=== PATIENT | female | born 1980 | race Caucasian/White ===

== ENCOUNTER 2018-08-09 07:16 | Emergency (ER) | payer OTHER ==
--- OUTSIDE RECORDS SUMMARY | 2018-08-09 07:18 | XMS REPORT ---
:1980 Author Organization eClinicalWorks Care Team Providers Name Role Phone Ira Scruggs Provider Role Unavailable Allergies, Adverse Reactions, Alerts Substance Reaction Event Type Garlic Info Not Available Drug Allergy Mustard Info Not Available Non Drug Allergy Onions Info Not Available Non Drug Allergy Problems Problem Type Condition Code Onset Dates Condition Status Problem Sinus problem J34.9 Active Problem Other chronic pain G89.29 Active Problem Kidney stones N20.0 Active Problem GERD (gastroesophageal reflux K21.9 Active disease) Problem Diverticulitis K57.92 Active Problem Anxiety F41.9 Active Problem Low back pain M54.5 Active Problem Fibromyalgia M79.7 Active Problem Depression F32.9 Active Problem Neck pain M54.2 Active Problem Oral contraceptive prescribed Z30.011 Active Problem Multiple allergies Z88.9 Active Assessment Positive urine test Z32.01 Active Problem Family planning Z30.09 Active Problem Seasonal allergic rhinitis J30.2 Active Medications Medication Code Code Instructions Start End Status Dosage System Date Date Seasonique [facility] 05961839122 0.15-0.03 &0.01 July Active 1 tablet MG Orally Once 2018 a day Metronidazole ND 16333153004 0.75 % JulyAugust 20, Active 1 application Externally 2018 to affected Twice a day area Ketoconazole ND 66518204590 2 % Externally JulyAugust 20, Active 1 application Once a day 2018 to affected area Results Name Result Date Reference Range Unit Abnormality Flag TEST URINE ----RESULTS Positive [id number] Summary Purpose eClinicalWorks Submission
--- OUTSIDE RECORDS SUMMARY | 2018-08-09 07:18 | XMS REPORT ---
:1980 [facility] Address [address] [place] [address] [address] [place] [address] Care Team Providers Name Role Phone Unavailable Unavailable Unavailable Problems This patient has no known problems. Allergies, Adverse Reactions, Alerts This patient has no known allergies or adverse reactions. Medications This patient has no known medications.
[2018-08-09] MEDS ORDERED: NA CHLORIDE 0.9% 1,000 ML ONE (08:08)
[2018-08-09] MEDS ORDERED: ONDANSETRON 4 MG/2 ML VIAL ONE (08:08)
[2018-08-09 08:36] LABS: Absolute Lymphocytes (CBC) 1.6 K/uL (0.7-4.9); Absolute Monocytes 0.4 K/uL (0.1-1.3); Basophils % 0.2 % (0-1.3); Eosinophils % 0.1 % (0-4.4); Hematocrit 38.4 % (36.0-45.0); Lymphocytes % 16.1 % (15.3-44.8); MPV 7.4 fL (7.6-11.3); Monocytes % 4.3 % (3.3-12.3); RBC Red Blood Cell Count 4.32 M/uL (3.86-4.86)
[2018-08-09 09:05] LABS: BUN Blood Urea Nitrogen 6 mg/dL (7-18); Bicarbonate 24 mmol/L (21-32); Glucose Level 85 mg/dL (74-106); HCG, Quantitative 4381 mIU/mL (1-3); Sodium Level 138 mmol/L (136-145)
[2018-08-09 09:45] LABS: Urine Blood TRACE (NEG); Urine Glucose NEGATIVE (NEG); Urine Protein TRACE (NEG); Urine Specific Gravity 1.015 (1.005-1.030); Urine pH 7.5 (5.0-7.0)
--- NOTE | 2018-08-09 09:59 | RAD REPORT ---
EXAM DESCRIPTION: US - Transvaginal OB - 08/09/2018 8:48 am CLINICAL HISTORY: with abdominal pain and vaginal bleeding COMPARISON: None. FINDINGS: The uterus measures 9 x 5 x 6 centimeters. A gestational sac is present within the endome trium measuring 12 x 4 x 6 millimeters. A yolk sac is not seen. A pole is not demonstrated. the right ovary measures 4.2 centimeters. It contains 1.7 centimeters cyst. The left ovary was not seen. An adnexal mass is not visualized. No significant free fluid is seen. IMPRESSION: These findings may indicate an early intrauterine in which the pole is n ot yet seen. Incomplete is another consideration. Serial beta HCG levels and follow-up ultra sound in 1 week recommended
--- NOTE | 2018-08-09 10:23 | ER ---
Nurse's Notes [facility] Name: Vanessa Da Silva Age: 37 yrs Sex: Female : 1980 Arrival Date: 08/09/2018 Time: 07:17 Bed 20 Private MD: Diagnosis: Intrauterine gestational sack, No clear IUP, UTI, RIght flank pain Presentation: 08/09 07:22 Presenting complaint: Patient states: lower abd cramping x "a couple weeks", that has ss gotten worse this morning. Pt reports she is approximately 6 weeks , denies vaginal bleeding. Transition of care: patient was not received from another setting of care. Onset of symptoms is unknown. Risk Assessment: Do you want to hurt yourself or someone else? Patient reports no desire to harm self or others. Initial Sepsis Screen: Does the patient meet any 2 criteria? No. Patient's initial sepsis screen is negative. Does the patient have a suspected source of infection? No. Patient's initial sepsis screen is negative. Care prior to arrival: None. 07:22 Method Of Arrival: Ambulatory ss 07:22 Acuity: DEV 3 ss Historical: - Allergies: 07:24 Codeine; ss 07:24 Latex, Natural Rubber; ss 07:24 Demerol; ss - Home Meds: 07:24 None [Active]; ss - PMHx: 07:24 None; ss - PSHx: 07:24 ; L salpingoophorectomy; ss - Immunization history:: Adult Immunizations up to date. - Social history:: Smoking status: Patient/guardian denies using tobacco. - Ebola Screening: : Patient denies exposure to infectious person Patient denies travel to an Ebola-affected area in the 21 days before illness onset. Screenin:30 Abuse screen: Denies threats or abuse. Denies injuries from another. Nutritional sg screening: No deficits noted. Tuberculosis screening: No symptoms or risk factors identified. Never had TB. Fall Risk None identified. Assessment: 07:30 Reassessment: Patient appears in no apparent distress at this time. General: Appears in sg no apparent distress. uncomfortable, well groomed, well developed, well nourished, Behavior is calm, cooperative, appropriate for age. Pain: Complains of pain in right flank Quality of pain is described as aching. Neuro: Level of Consciousness is awake, alert, obeys commands, Gas Pipe Layer are equal bilaterally Moves all extremities. Speech is normal. Cardiovascular: Capillary refill is brisk in bilateral fingers Patient's skin is warm and dry. Chest pain is denied. Respiratory: Airway is patent Respiratory effort is even, unlabored, Respiratory pattern is regular, symmetrical. GI: Abdomen is round non-distended, Bowel sounds present X 4 quads. Abd is soft X 4 quads Reports nausea. : No signs and/or symptoms were reported regarding the genitourinary system. EENT: No signs and/or symptoms were reported regarding the EENT system. Derm: Skin is pink, warm \\T\\ dry. Musculoskeletal: No signs and/or symptoms reported regarding the musculoskeletal system. Vital Signs: 07:24 Resp 16; Weight 87.54 kg; Height 5 ft. 1 in. (154.94 cm); Pain 6/10; ss 07:27 BP 108 / 73; Temp 99.3(TE); ss 07:27 Pulse 92; sg 10:00 BP 105 / 64; Pulse 80; Resp 16; Pulse Ox 100% on R/A; sg 10:08 Temp 98.7; sg 07:24 Body Mass Index 36.47 (87.54 kg, 154.94 cm) ss ED Course: 07:17 Patient arrived in ED. as 07:20 Garrett Hobson, RN is Primary Nurse. sg 07:23 Triage completed. ss 07:24 Rajat Ramsey MD is Attending Physician. kdr 07:24 Arm band placed on right wrist. ss 07:30 Urine collected: clean catch specimen, clear. sg 08:00 Initial lab(s) drawn, by ne, sent to lab. Inserted saline lock: 22 gauge in left sg antecubital area, using aseptic technique. Blood collected. 08:31 US Transvaginal Ob In Process Unspecified. EDMS 10:21 Rajat Ramsey MD is Referral Physician. kdr Administered Medications: 08:10 Drug: Zofran 4 mg Route: IVP; Site: left antecubital; sg 08:42 Drug: NS 0.9% 1000 ml Route: IV; Rate: 1 bolus; Site: left antecubital; sg 10:30 Drug: Rocephin 1 grams Route: IV; Rate: calculated rate; Site: left antecubital; sg 10:36 Not Given (Duplicate Order): Rocephin - (cefTRIAXone) 1 grams IVPB once over 30 mins; sg (mix in 50 mL NS) Outcome: 10:22 Discharge ordered by . tabitha 10:50 Patient left the ED. ss Signatures: Dispatcher [employer] EDGarrett Agustin RN RN Rajat Guerra MD MD kdr Martinez, Amelia as Smirch, Shelby, RN RN ss
--- NOTE | 2018-08-09 10:24 | EDPHYS ---
Physician Documentation [facility] Name: Vanessa Da Silva Age: 37 yrs Sex: Female : 1980 Arrival Date: 08/09/2018 Time: 07:17 Bed 20 Private MD: ED Physician Rajat Ramsey HPI: 08/09 07:55 This 37 yrs old Female presents to ER via Ambulatory with complaints of kdr Abdominal Pain - 6 wks preg. 07:55 The patient complains of pain in the right flank. The patient has had persistent kdr recurrent right flank pain for about two weeks. IT has been intermittent and she has had two US which were not able to identify an IUP. The pain has been dull, achy like a "uterine cramp." She has not had any spotting or bleeding and no UTI s/s. Onset: The symptoms/episode began/occurred gradually, 2 week(s) ago. Modifying factors: The symptoms are alleviated by nothing. the symptoms are aggravated by movement. Associated signs and symptoms: Pertinent positives: nausea, Pertinent negatives: diarrhea, dizziness, dysuria, urinary frequency, headache, hematuria, pain radiating to the lower extremities, vomiting. Severity of pain: At its worst the pain was moderate in the emergency department the pain is unchanged. The patient has not experienced similar symptoms in the past, Not other than these past two weeks. The patient has been recently seen by a physician: the patient's primary care provider. Historical: - Allergies: 07:24 Codeine; ss 07:24 Latex, Natural Rubber; ss 07:24 Demerol; ss - Home Meds: 07:24 None [Active]; ss - PMHx: 07:24 None; ss - PSHx: 07:24 ; L salpingoophorectomy; ss - Immunization history:: Adult Immunizations up to date. - Social history:: Smoking status: Patient/guardian denies using tobacco. - Ebola Screening: : Patient denies exposure to infectious person Patient denies travel to an Ebola-affected area in the 21 days before illness onset. ROS: 08:09 Constitutional: Negative for fever, chills, and weight loss, Eyes: Negative for injury, kdr pain, redness, and discharge, ENT: Negative for injury, pain, and discharge, Neck: Negative for injury, pain, and swelling, Cardiovascular: Negative for chest pain, palpitations, and edema, Respiratory: Negative for shortness of breath, cough, wheezing, and pleuritic chest pain, Back: Negative for injury and pain, : Negative for injury, bleeding, discharge, and swelling, MS/Extremity: Negative for injury and deformity, Skin: Negative for injury, rash, and discoloration, Neuro: Negative for headache, weakness, numbness, tingling, and seizure activity. Psych: Negative for depression, anxiety, suicide ideation, homicidal ideation, and hallucinations, Allergy/Immunology: Negative for hives, rash, and allergies, Endocrine: Negative for neck swelling, polydipsia, polyuria, polyphagia, and marked weight changes, Hematologic/Lymphatic: Negative for swollen nodes, abnormal bleeding, and unusual bruising. 08:09 Abdomen/GI: Positive for abdominal pain, nausea, Right flank and LQ pain, Negative for vomiting, diarrhea, constipation, abdominal cramps, abdominal distension, dysphagia, hematemesis, black/tarry stool, rectal pain, rectal bleeding, bowel incontinence. Exam: 08:09 Constitutional: This is a well developed, well nourished patient who is awake, alert, kdr and in no acute distress. Head/Face: Normocephalic, atraumatic. Eyes: Pupils equal round and reactive to light, extra-ocular motions intact. Lids and lashes normal. Conjunctiva and sclera are non-icteric and not injected. Cornea within normal limits. Periorbital areas with no swelling, redness, or edema. Neck: Trachea midline, no thyromegaly or masses palpated, and no cervical lymphadenopathy. Supple, full range of motion without nuchal rigidity, or vertebral point tenderness. No Meningismus. Chest/axilla: Normal chest wall appearance and motion. Nontender with no deformity. No lesions are appreciated. Cardiovascular: Regular rate and rhythm with a normal S1 and S2. No gallops, murmurs, or rubs. Normal PMI, no JVD. No pulse deficits. Respiratory: Lungs have equal breath sounds bilaterally, clear to auscultation and percussion. No rales, rhonchi or wheezes noted. No increased work of breathing, no retractions or nasal flaring. Back: No spinal tenderness. No costovertebral tenderness. Full range of motion. Skin: Warm, dry with normal turgor. Normal color with no rashes, no lesions, and no evidence of cellulitis. MS/ Extremity: Pulses equal, no cyanosis. Neurovascular intact. Full, normal range of motion. Neuro: Awake and alert, GCS 15, oriented to person, place, time, and situation. Cranial nerves II-XII grossly intact. Motor strength 5/5 in all extremities. Sensory grossly intact. Cerebellar exam normal. Normal gait. Psych: Awake, alert, with orientation to person, place and time. Behavior, mood, and affect are within normal limits. 08:09 Abdomen/GI: Inspection: abdomen appears normal, obese Bowel sounds: active, Palpation: soft, mild abdominal tenderness, in the right lower quadrant, mass, is not appreciated, rebound tenderness, is not appreciated, voluntary guarding, is not appreciated, involuntary guarding, is not appreciated. Vital Signs: 07:24 Resp 16; Weight 87.54 kg; Height 5 ft. 1 in. (154.94 cm); Pain 6/10; ss 07:27 BP 108 / 73; Temp 99.3(TE); ss 07:27 Pulse 92; sg 10:00 BP 105 / 64; Pulse 80; Resp 16; Pulse Ox 100% on R/A; sg 10:08 Temp 98.7; sg 07:24 Body Mass Index 36.47 (87.54 kg, 154.94 cm) ss MDM: 08:09 Data reviewed: vital signs, nurses notes, lab test result(s), radiologic studies. kdr Counseling: I had a detailed discussion with the patient and/or guardian regarding: the historical points, exam findings, and any diagnostic results supporting the discharge/admit diagnosis, lab results, radiology results. 10:18 ED course: The patient is felling much better and is happy with the care provided and kdr the plan for discharge and follow-up in 48 hours - is she is unable to get outside follow-up she was instructed to return to this ED for repeat [facility]. 10:22 Patient medically screened. kdr 08/09 07:35 Order name: Urine Dipstick--Ancillary (enter results); Complete Time: 10:06 bd 08/09 07:35 Order name: Urine --Ancillary (enter results); Complete Time: 10:06 bd 08/09 07:46 Order name: Quantitative Hcg kdr 08/09 07:46 Order name: Abo/rh Typing kdr 08/09 07:46 Order name: Basic Metabolic Panel; Complete Time: 09:29 kdr 08/09 07:46 Order name: CBC with Diff; Complete Time: 09:29 kdr 08/09 07:46 Order name: IV Saline Lock; Complete Time: 07:54 kdr 08/09 07:46 Order name: US Transvaginal Ob; Complete Time: 10:06 kdr 08/09 07:46 Order name: HCG, Quantitative; Complete Time: 09:29 EDMD 08/09 07:46 Order name: ABO/RH typing EDMD 08/09 07:46 Order name: Labs collected and sent; Complete Time: 07:54 kdr 08/09 07:46 Order name: NPO; Complete Time: 07:54 [facility] 08/09 07:46 Order name: Urine Dipstick-Ancillary (obtain specimen); Complete Time: 07:54 kdr Administered Medications: 08:10 Drug: Zofran 4 mg Route: IVP; Site: left antecubital; sg 08:42 Drug: NS 0.9% 1000 ml Route: IV; Rate: 1 bolus; Site: left antecubital; sg 10:30 Drug: Rocephin 1 grams Route: IV; Rate: calculated rate; Site: left antecubital; sg 10:36 Not Given (Duplicate Order): Rocephin - (cefTRIAXone) 1 grams IVPB once over 30 mins; sg (mix in 50 mL NS) Disposition: 08/09/18 10:22 Discharged to Home. Impression: Intrauterine gestational sack, No clear IUP, UTI, RIght flank pain. - Condition is Stable. - Discharge Instructions: and Urinary Tract Infection. - Prescriptions for Macrobid 100 mg Oral Capsule - take 1 capsule by ORAL route every 12 hours for 10 days; 20 capsule. - Family Work Release, Medication Reconciliation Form, Thank You Letter, Antibiotic Education, Work release form form. - Follow up: Rajat Ramsey MD; When: 48 Hours; Reason: If symptoms return, Recheck today's complaints, Continuance of care, Repeat Beta-HCG (48 Hours), Re-evaluation by your physician. - Problem is an ongoing problem. - Symptoms have improved. - Notes: You will need a repeat BHCG in 48 hours. Signatures: Dispatcher [employer] EDGarrett Agustin, RN RN Rajat Ramsey MD MD [facility] Liz Lala RN RN ss Corrections: (The following items were deleted from the chart) 10:50 10:22 08/09/2018 10:22 Discharged to Home. Impression: Intrauterine gestational sack, ss No clear IUP, UTI, RIght flank pain. Condition is Stable. Forms are Medication Reconciliation Form, Thank You Letter, Antibiotic Education, Prescription Opioid Use. Follow up: Dr. Rajat Ramsey; When: 48 Hours; Reason: If symptoms return, Recheck today's complaints, Continuance of care, Repeat Beta-HCG (48 Hours), Re-evaluation by your physician. Problem is an ongoing problem. Symptoms have improved. kdr
[2018-08-09] MEDS ORDERED: CEFTRIAXONE/SWI 1gm 1 GM/10 ML SYR ONE (10:25)
== END 2018-08-09 10:50 | disposition home or self-care (01) ==
LOC: ER 07:16
DX: O23.41 Unspecified infection of urinary tract in pregnancy, first trimester (principal); Z3A.01 Less than 8 weeks gestation of pregnancy; Z88.5 Allergy status to narcotic agent; Z91.040 Latex allergy status; Z91.048 Other nonmedicinal substance allergy status
CPT/HCPCS: 36415; 76817; 80048; 81003; 81025; 84702; 85025; 86900; 86901; 96374; 96375; 99284; J0696; J2405; J7030

== ENCOUNTER 2018-08-11 07:25 | Emergency (ER) | payer OTHER ==
--- OUTSIDE RECORDS SUMMARY | 2018-08-11 07:28 | XMS REPORT ---
:1980 [facility] Address [address] [place] [address] [address] [place] [address] Care Team Providers Name Role Phone Unavailable Unavailable Unavailable Problems This patient has no known problems. Allergies, Adverse Reactions, Alerts This patient has no known allergies or adverse reactions. Medications This patient has no known medications.
--- OUTSIDE RECORDS SUMMARY | 2018-08-11 07:28 | XMS REPORT ---
[...] End Status Dosage System Date Date Seasonique [facility] [id number] 0.15-0.03 &0.01 July Active 1 tablet MG Orally Once 2018 a day Metronidazole ND 75088588947 0.75 % JulyAugust 20, Active 1 application Externally 2018 to affected Twice a day area Ketoconazole ND 84772152331 2 % Externally JulyAugust 20, Active 1 application Once a day 2018 to affected area Results Name Result Date Reference Range Unit Abnormality Flag TEST URINE ----RESULTS Positive [id number] Summary Purpose eClinicalWorks Submission
--- NOTE | 2018-08-11 11:26 | RAD REPORT ---
EXAM DESCRIPTION: US - Transvaginal OB - 08/11/2018 10:44 am CLINICAL HISTORY: ABD PAIN Pelvic pain. COMPARISON: Transvaginal OB dated 08/09/2018 FINDINGS: A single gestational sac is seen within the uterus. Gestational sac is irregular in shape. Decidual reaction is somewhat weak. No yolk sac or embryo is identified. Several small subchorionic bleeds are present. The left ovary is obscured by bowel gas. The right ovary shows normal blood flow. 2.7 x 2.4 cm rounde d thick-walled cystic structure is seen adjacent to the right ovary. No pelvic ascites. IMPRESSION: Small irregular gestational sac is present in the endometrium. No normal yolk sac or emb jose seen. There is a thick walled cystic structure in right adnexa adjacent to the right ovary. A pse udo-gestational sac with a right-sided ectopic is a possibility. Alternatively, the finding s may still represent a normal early IUP. Follow-up beta HCG and close interval follow-up transvagina l sonography is recommended in 48 hours.
--- NOTE | 2018-08-11 11:44 | ER ---
Nurse's Notes [facility] Name: Vanessa Da Silva Age: 37 yrs Sex: Female : 1980 Arrival Date: 08/11/2018 Time: 07:28 Bed 8 Private MD: Diagnosis: Intrauterine gestational sac, No clear IUP Presentation: 08/11 07:45 Presenting complaint: Patient states: "they told me to come back to get a repeat HCG aa5 level". Pt denies abd pain, denies vaginal bleeding. Pt states "I got the last one drawn on Tuesday". 07:45 Transition of care: patient was not received from another setting of care. Onset of aa5 symptoms was August 11, 2018. Risk Assessment: Do you want to hurt yourself or someone else? Patient reports no desire to harm self or others. Initial Sepsis Screen: Does the patient meet any 2 criteria? No. Patient's initial sepsis screen is negative. Does the patient have a suspected source of infection? No. Patient's initial sepsis screen is negative. Care prior to arrival: None. 07:45 Acuity: DEV 4 aa5 07:45 Method Of Arrival: Ambulatory aa5 Historical: - Allergies: 07:53 Codeine; aa5 07:53 Demerol; aa5 07:53 Latex, Natural Rubber; aa5 - PMHx: 07:53 None; aa5 - PSHx: 07:53 ; L salpingoophorectomy; aa5 - Ebola Screening: : No symptoms or risks identified at this time. Screenin:50 Abuse screen: Denies threats or abuse. Nutritional screening: No deficits noted. aa5 Tuberculosis screening: No symptoms or risk factors identified. Fall Risk None identified. Assessment: 07:50 General: Appears comfortable, Behavior is calm, cooperative. Pain: Denies pain. Neuro: aa5 Level of Consciousness is awake, alert, obeys commands, Oriented to person, place, time, situation. Cardiovascular: Heart tones S1 S2 present Rhythm is regular. Respiratory: Airway is patent Respiratory effort is even, unlabored, Respiratory pattern is regular, symmetrical. GI: Patient currently denies abdominal pain. : Denies vaginal bleeding. EENT: No signs and/or symptoms were reported regarding the EENT system. Derm: Skin is pink, warm \\T\\ dry. Musculoskeletal: Range of motion: intact in all extremities. 08:00 Reassessment: Patient and/or family updated on plan of care and expected duration. Pain aa5 level reassessed. Patient is alert, oriented x 3, equal unlabored respirations, skin warm/dry/pink. Patient denies pain at this time. Awaiting blood draw by lab. . 09:30 Reassessment: Patient and/or family updated on plan of care and expected duration. Pain aa5 level reassessed. Patient is alert, oriented x 3, equal unlabored respirations, skin warm/dry/pink. Contacted lab and stated results will be posted shortly, pt notified. . 10:14 Reassessment: PT to US . aa5 11:55 Reassessment: Patient is alert, oriented x 3, equal unlabored respirations, skin aa5 warm/dry/pink. Patient denies pain at this time. Vital Signs: 07:50 BP 102 / 79; Pulse 88; Resp 16 S; Temp 98.3(O); Pulse Ox 100% on R/A; Pain 0/10; aa5 09:00 BP 104 / 71; Pulse 81; Resp 16 S; Pulse Ox 100% on R/A; aa5 10:00 BP 108 / 69; Pulse 77; Resp 18 S; Pulse Ox 100% on R/A; aa5 11:15 BP 108 / 74; Pulse 75; Resp 16 S; Temp 98.0(TE); Pulse Ox 98% on R/A; Pain 0/10; aa5 ED Course: 07:28 Patient arrived in ED. mr 07:43 Chaitanya Somers NP is PHCP. pm1 07:43 Homero Crisostomo MD is Attending Physician. pm1 07:45 Arm band placed on Patient placed in an exam room, on a stretcher. aa5 07:45 Patient has correct armband on for positive identification. Bed in low position. Call aa5 light in reach. Side rails up X 1. Adult w/ patient. 07:50 Ruth Camejo, RN is Primary Nurse. aa5 07:51 Triage completed. aa5 10:14 No provider procedures requiring assistance completed. aa5 10:44 US Transvaginal Ob In Process Unspecified. EDMS 11:55 Patient did not have IV access during this emergency room visit. aa5 Administered Medications: No medications were administered Outcome: 11:43 Discharge ordered by MD. pm1 11:55 Discharged to home ambulatory, with significant other. bossman 11:55 Condition: stable 11:55 Discharge instructions given to patient, Instructed on discharge instructions, follow up and referral plans. Demonstrated understanding of instructions, follow-up care. 11:58 Patient left the ED. iw Signatures: Dispatcher [employer] EDNH Essence Alexander Irene, RN RN iw Ruth Camejo RN RN aa5 Chaitanya Somers, POLISHING WHEEL SETTER POLISHING WHEEL SETTER pm1
--- NOTE | 2018-08-11 11:44 | EDPHYS ---
Physician Documentation [facility] Name: Vanessa Da Silva Age: 37 yrs Sex: Female : 1980 Arrival Date: 08/11/2018 Time: 07:28 Bed 8 Private MD: ED Physician Homero Crisostomo HPI: 08/11 11:41 This 37 yrs old Female presents to ER via Ambulatory with complaints of HCG pm1 level rechecked. 11:41 Associated signs and symptoms: The patient has no apparent associated signs or pm1 symptoms, Pertinent negatives: abdominal pain, chest pain, cough, diarrhea, dysuria, fever, headache, shortness of breath, vomiting, Patient's right sided abdominal pain from 2 days ago has resolved. Associated signs and symptoms: Pertinent negatives: vaginal bleeding. Modifying factors: The patient symptoms are alleviated by nothing, the patient symptoms are aggravated by nothing. The patient has not experienced similar symptoms in the past. The patient has been recently seen at the [facility] Emergency Department, for similar complaints labs were performed, an ultrasound was performed, 2 days ago. Historical: - Allergies: 07:53 Codeine; aa5 07:53 Demerol; aa5 07:53 Latex, Natural Rubber; aa5 - PMHx: 07:53 None; aa5 - PSHx: 07:53 ; L salpingoophorectomy; aa5 - Ebola Screening: : No symptoms or risks identified at this time. ROS: 11:41 Constitutional: Negative for fever, chills, and weight loss, Eyes: Negative for injury, pm1 pain, redness, and discharge, ENT: Negative for injury, pain, and discharge, Neck: Negative for injury, pain, and swelling, Cardiovascular: Negative for chest pain, palpitations, and edema, Respiratory: Negative for shortness of breath, cough, wheezing, and pleuritic chest pain, Abdomen/GI: Negative for abdominal pain, nausea, vomiting, diarrhea, and constipation, Back: Negative for injury and pain. 11:41 MS/Extremity: Negative for injury and deformity, Skin: Negative for injury, rash, and discoloration, Neuro: Negative for headache, weakness, numbness, tingling, and seizure. 11:41 : Negative for urinary symptoms, burning with urination, difficulty urinating, vaginal bleeding, vaginal discharge. Exam: 11:41 Constitutional: This is a well developed, well nourished patient who is awake, alert, pm1 and in no acute distress. Head/Face: Normocephalic, atraumatic. Eyes: Pupils equal round and reactive to light, extra-ocular motions intact. Lids and lashes normal. Conjunctiva and sclera are non-icteric and not injected. Cornea within normal limits. Periorbital areas with no swelling, redness, or edema. ENT: Nares patent. No nasal discharge, no septal abnormalities noted. Tympanic membranes are normal and external auditory canals are clear. Oropharynx with no redness, swelling, or masses, exudates, or evidence of obstruction, uvula midline. Mucous membranes moist. Neck: Trachea midline, no thyromegaly or masses palpated, and no cervical lymphadenopathy. Supple, full range of motion without nuchal rigidity, or vertebral point tenderness. No Meningismus. Chest/axilla: Normal chest wall appearance and motion. Nontender with no deformity. No lesions are appreciated. Cardiovascular: Regular rate and rhythm with a normal S1 and S2. No gallops, murmurs, or rubs. Normal PMI, no JVD. No pulse deficits. Respiratory: Lungs have equal breath sounds bilaterally, clear to auscultation and percussion. No rales, rhonchi or wheezes noted. No increased work of breathing, no retractions or nasal flaring. Abdomen/GI: Soft, non-tender, with normal bowel sounds. No distension or tympany. No guarding or rebound. No evidence of tenderness throughout. Back: No spinal tenderness. No costovertebral tenderness. Full range of motion. Skin: Warm, dry with normal turgor. Normal color with no rashes, no lesions, and no evidence of cellulitis. MS/ Extremity: Pulses equal, no cyanosis. Neurovascular intact. Full, normal range of motion. 11:41 Neuro: Orientation: is normal, Motor: is normal, moves all fours. Vital Signs: 07:50 BP 102 / 79; Pulse 88; Resp 16 S; Temp 98.3(O); Pulse Ox 100% on R/A; Pain 0/10; aa5 09:00 BP 104 / 71; Pulse 81; Resp 16 S; Pulse Ox 100% on R/A; aa5 10:00 BP 108 / 69; Pulse 77; Resp 18 S; Pulse Ox 100% on R/A; aa5 11:15 BP 108 / 74; Pulse 75; Resp 16 S; Temp 98.0(TE); Pulse Ox 98% on R/A; Pain 0/10; aa5 MDM: 07:43 Patient medically screened. pm1 10:07 ED course: Discussed increased BetaHCG with Dr. Ramsey and he would like repeat pm1 ultrasound due to impression of unclear IUP 2 days ago. 11:41 Data reviewed: vital signs. Data interpreted: Pulse oximetry: on room air is 100 %. pm1 Interpretation: normal. Counseling: I had a detailed discussion with the patient and/or guardian regarding: the historical points, exam findings, and any diagnostic results supporting the discharge/admit diagnosis, lab results, radiology results, Return to the ER in 48 hours for repeat ultrasound and beta HCG in 48 hours. 08/11 08:00 Order name: Beta hcg; Complete Time: 09:39 pm1 08/11 09:41 Order name: US Transvaginal Ob; Complete Time: 11:28 pm1 Administered Medications: No medications were administered Disposition: 15:03 Co-signature as Attending Physician, Homero Crisostomo MD I agree with the assessment and mansi plan of care. Disposition: 08/11/18 11:43 Discharged to Home. Impression: Intrauterine gestational sac, No clear IUP. - Condition is Stable. - Discharge Instructions: First Trimester of , and Urinary Tract Infection. - Medication Reconciliation Form, Thank You Letter, Antibiotic Education, Prescription Opioid Use form. - Follow up: Private Physician; When: 2 - 3 days; Reason: Recheck today's complaints, Continuance of care, Re-evaluation by your physician. Follow up: Emergency Department; When: 48 Hours; Reason: Worsening of condition, Repeat Beta-HCG (48 Hours). - Problem is new. - Symptoms have improved. Signatures: Dispatcher [employer] EDHomero Carlson MD MD cha Williams, Irene, RN RN iw Ruth Camejo RN RN aa5 Chaitanya Somers NP POWER NUT RUNNER OPERATOR pm1 Corrections: (The following items were deleted from the chart) 11:45 11:43 08/11/2018 11:43 Discharged to Home. Impression: Unclear intrauterine . pm1 Condition is Stable. Forms are Medication Reconciliation Form, Thank You Letter, Antibiotic Education, Prescription Opioid Use. Follow up: Emergency Department; When: As needed; Reason: Worsening of condition. Follow up: Private Physician; When: 2 - 3 days; Reason: Recheck today's complaints, Continuance of care, Re-evaluation by your physician. Problem is new. Symptoms have improved. pm1 11:45 11:45 08/11/2018 11:43 Discharged to Home. Impression: Intrauterine gestational sac, pm1 Unclear IUP. Condition is Stable. Forms are Medication Reconciliation Form, Thank You Letter, Antibiotic Education, Prescription Opioid Use. Follow up: Emergency Department; When: As needed; Reason: Worsening of condition. Follow up: Private Physician; When: 2 - 3 days; Reason: Recheck today's complaints, Continuance of care, Re-evaluation by your physician. Problem is new. Symptoms have improved. pm1 11:47 11:45 08/11/2018 11:43 Discharged to Home. Impression: Intrauterine gestational sac, No pm1 clear IUP. Condition is Stable. Forms are Medication Reconciliation Form, Thank You Letter, Antibiotic Education, Prescription Opioid Use. Follow up: Emergency Department; When: As needed; Reason: Worsening of condition. Follow up: Private Physician; When: 2 - 3 days; Reason: Recheck today's complaints, Continuance of care, Re-evaluation by your physician. Problem is new. Symptoms have improved. pm1 11:58 11:47 08/11/2018 11:43 Discharged to Home. Impression: Intrauterine gestational sac, No iw clear IUP. Condition is Stable. Forms are Medication Reconciliation Form, Thank You Letter, Antibiotic Education, Prescription Opioid Use. Follow up: Private Physician; When: 2 - 3 days; Reason: Recheck today's complaints, Continuance of care, Re-evaluation by your physician. Follow up: Emergency Department; When: 48 Hours; Reason: Worsening of condition, Repeat Beta-HCG (48 Hours). Problem is new. Symptoms have improved. pm1
== END 2018-08-11 11:58 | disposition home or self-care (01) ==
LOC: ER 07:25
DX: Z32.00 Encounter for pregnancy test, result unknown (principal)
CPT/HCPCS: 36415; 76817; 84702; 99283

== ENCOUNTER 2018-08-13 07:32 | Emergency (ER) | payer OTHER ==
--- OUTSIDE RECORDS SUMMARY | 2018-08-13 07:34 | XMS REPORT ---
[...] End Status Dosage System Date Date Seasonique [facility] 13139499752 0.15-0.03 &0.01 July Active 1 tablet MG Orally Once 2018 a day Metronidazole ND [id number] 0.75 % JulyAugust 20, Active 1 application Externally 2018 to affected Twice a day area Ketoconazole ND [id number] 2 % Externally JulyAugust 20, Active 1 application Once a day 2018 to affected area Results Name Result Date Reference Range Unit Abnormality Flag TEST URINE ----RESULTS Positive [id number] Summary Purpose eClinicalWorks Submission
--- OUTSIDE RECORDS SUMMARY | 2018-08-13 07:34 | XMS REPORT ---
:1980 Author Organization [facility] Address [address] [place] [address] [address] [place] [address] Care Team Providers Name Role Phone Unavailable Unavailable Unavailable Problems This patient has no known problems. Allergies, Adverse Reactions, Alerts This patient has no known allergies or adverse reactions. Medications This patient has no known medications.
[2018-08-13] MEDS ORDERED: NA CHLORIDE 0.9% 1,000 ML ONE (07:59)
[2018-08-13 08:23] LABS: Absolute Lymphocytes (CBC) 1.5 K/uL (0.7-4.9); Absolute Monocytes 0.4 K/uL (0.1-1.3); Absolute Neutrophil 7.5 K/uL (1.8-8.0); Basophils % 2.3 % (0-1.3); Eosinophils % 0.6 % (0-4.4); Hematocrit 39.1 % (36.0-45.0); Lymphocytes % 15.4 % (15.3-44.8); MPV 7.6 fL (7.6-11.3); Monocytes % 3.8 % (3.3-12.3)
[2018-08-13 08:51] LABS: Urine Blood NEGATIVE (NEG); Urine Glucose NEGATIVE (NEG); Urine Protein NEGATIVE (NEG)
[2018-08-13 08:53] LABS: BUN Blood Urea Nitrogen 10 mg/dL (7-18); Bicarbonate 24 mmol/L (21-32); Glucose Level 82 mg/dL (74-106); HCG, Quantitative 10635 mIU/mL (1-3); Potassium 3.5 mmol/L (3.5-5.1); Sodium Level 138 mmol/L (136-145)
[2018-08-13 08:58] LABS: Blood Morphology Comment NOT SEEN (NOT SEEN); Platelet Estimate ADEQ
--- NOTE | 2018-08-13 09:22 | ER ---
Nurse's Notes [facility] Name: Vanessa Da Silva Age: 37 yrs Sex: Female : 1980 Arrival Date: 08/13/2018 Time: 07:34 Bed 18 Private MD: Ira Scruggs Diagnosis: related conditions, unspecified, first trimester Presentation: 08/13 07:44 Presenting complaint: Patient states: was here on Tuesday, told to come have repeat em HCG reports levels were around 4000, also reports burning with urination, was DX with UTI on Tuesday and given Rocephin and Macrobid, reports Macrobid is making things worse. Transition of care: patient was not received from another setting of care. Onset of symptoms was August 09, 2018. Risk Assessment: Do you want to hurt yourself or someone else? Patient reports no desire to harm self or others. Initial Sepsis Screen: Does the patient meet any 2 criteria? No. Patient's initial sepsis screen is negative. Does the patient have a suspected source of infection? No. Patient's initial sepsis screen is negative. Care prior to arrival: None. 07:44 Method Of Arrival: Ambulatory em 07:49 Acuity: DEV 3 iw Triage Assessment: 07:42 General: Appears in no apparent distress. well groomed, Behavior is calm, cooperative, tw2 appropriate for age. Pain: Denies pain. 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 - Social history:: Smoking status: . - Ebola Screening: : Patient denies travel to an Ebola-affected area in the 21 days before illness onset. Screenin:41 Abuse screen: Denies threats or abuse. Nutritional screening: No deficits noted. tw2 Tuberculosis screening: No symptoms or risk factors identified. Fall Risk None identified. Assessment: 07:44 General: Appears in no apparent distress. comfortable, Behavior is calm, cooperative, em Denies fever. Pain: Denies pain. Neuro: Level of Consciousness is awake, alert, obeys commands, Oriented to person, place, time, situation. Cardiovascular: Capillary refill < 3 seconds Patient's skin is warm and dry. Respiratory: Airway is patent Respiratory effort is even, unlabored, Respiratory pattern is regular, symmetrical. GI: Reports nausea, Patient currently denies vomiting. : Urine is clear, Reports burning with urination. Derm: Skin is intact, is healthy with good turgor, Skin is pink, warm \T\ dry. Musculoskeletal: Capillary refill < 3 seconds, Range of motion: intact in all extremities. 08:00 Reassessment: Patient appears in no apparent distress at this time. Patient and/or iw family updated on plan of care and expected duration. Pain level reassessed. I agree with above assessment by Robin Talavera LVN. 08:55 Reassessment: Patient appears in no apparent distress at this time. Patient and/or em family updated on plan of care and expected duration. Pain level reassessed. Patient is alert, oriented x 3, equal unlabored respirations, skin warm/dry/pink. 09:21 Reassessment: Patient appears in no apparent distress at this time. Patient and/or em family updated on plan of care and expected duration. Pain level reassessed. Patient is alert, oriented x 3, equal unlabored respirations, skin warm/dry/pink. request an explanation about ultrasound results, pt provider notified, charge nurse notified, pt ready to be discharged. Vital Signs: 07:44 BP 102 / 77; Pulse 83; Resp 18; Temp 98.0; Pulse Ox 99% on R/A; Weight 87.54 kg; Height em 5 ft. 1 in. (154.94 cm); Pain 0/10; 09:16 BP 112 / 82; Pulse 72; Resp 18; Pulse Ox 99% on R/A; Pain 0/10; em 07:44 Body Mass Index 36.47 (87.54 kg, 154.94 cm) em ED Course: 07:34 Patient arrived in ED. am2 07:34 Ira Scruggs MD is Private Physician. am2 07:38 Robin Talavera LVN is Primary Nurse. em 07:38 Bed in low position. Call light in reach. residential monitor on. Pulse ox on. NIBP on. tw2 07:42 Homero Crisostomo MD is Attending Physician. mansi 07:42 Arm band placed on. tw2 07:49 Triage completed. iw 08:15 No provider procedures requiring assistance completed. Initial lab(s) drawn, by me, em sent to lab. Inserted saline lock: 20 gauge in left antecubital area, using aseptic technique. Blood collected. 09:20 Ira Scruggs MD is Referral Physician. mansi 09:21 Uri Clement MD is Referral Physician. mansi 09:33 Ultrasound completed. Patient tolerated well. Notified ED Physician andreea. sg3 09:36 US Transvaginal Ob In Process Unspecified. EDMS 10:01 IV discontinued, intact, bleeding controlled, No redness/swelling at site. Pressure em dressing applied. Administered Medications: 07:59 Drug: NS 0.9% 1000 ml Route: IV; Rate: 1 bolus; Site: left antecubital; em 09:55 Follow up: IV Status: Completed infusion; IV Intake: 1000ml em Intake: 09:55 IV: 1000ml; Total: 1000ml. em Outcome: 09:21 Discharge ordered by . mansi 10:34 Discharged to home ambulatory. em 10:34 Condition: good 10:34 Discharge instructions given to patient, Instructed on discharge instructions, follow up and referral plans. medication usage, Demonstrated understanding of instructions, follow-up care, medications, Prescriptions given X 1. 10:35 Patient left the ED. em Signatures: Dispatcher [employer] EDCT Homero Crisostomo MD MD cha Munoz, Edgar, PROGRAM HOST PROGRAM HOST em Denise Gaston, SONIA SCOTT Jocelyn Daly RN RN [facility] Herlinda Marte [facility] Katy Li sg3
--- NOTE | 2018-08-13 09:22 | EDPHYS ---
Physician Documentation [facility] Name: Vanessa Da Silva Age: 37 yrs Sex: Female : 1980 Arrival Date: 08/13/2018 Time: 07:34 Bed 18 Private MD: Ira Scruggs ED Physician Homero Crisostomo HPI: 08/13 09:00 This 37 yrs old Female presents to ER via Ambulatory with complaints of mansi repeat hcg. 09:00 The patient presents to the emergency department with abdominal pain, of the suprapubic mansi area. The estimated gestational age is 6 weeks. Associated signs and symptoms: Pertinent positives: dysuria. The patient has experienced similar episodes in the past, a few times. 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 - Social history:: Smoking status: . - Ebola Screening: : Patient denies travel to an Ebola-affected area in the 21 days before illness onset. ROS: 09:01 Constitutional: Negative for fever, chills, and weight loss, Eyes: Negative for injury, mansi pain, redness, and discharge, ENT: Negative for injury, pain, and discharge, Neck: Negative for injury, pain, and swelling, Cardiovascular: Negative for chest pain, palpitations, and edema, Respiratory: Negative for shortness of breath, cough, wheezing, and pleuritic chest pain, Abdomen/GI: Negative for abdominal pain, nausea, vomiting, diarrhea, and constipation, Back: Negative for injury and pain, MS/Extremity: Negative for injury and deformity, Skin: Negative for injury, rash, and discoloration, Neuro: Negative for headache, weakness, numbness, tingling, and seizure, Psych: Negative for depression, anxiety, suicide ideation, homicidal ideation, and hallucinations, Allergy/Immunology: Negative for hives, rash, and allergies, Endocrine: Negative for neck swelling, polydipsia, polyuria, polyphagia, and marked weight changes, Hematologic/Lymphatic: Negative for swollen nodes, abnormal bleeding, and unusual bruising. 09:01 : Positive for burning with urination. Exam: 09:01 Constitutional: This is a well developed, well nourished patient who is awake, alert, mansi and in no acute distress. Head/Face: Normocephalic, atraumatic. Eyes: Pupils equal round and reactive to light, extra-ocular motions intact. Lids and lashes normal. Conjunctiva and sclera are non-icteric and not injected. Cornea within normal limits. Periorbital areas with no swelling, redness, or edema. ENT: Nares patent. No nasal discharge, no septal abnormalities noted. Tympanic membranes are normal and external auditory canals are clear. Oropharynx with no redness, swelling, or masses, exudates, or evidence of obstruction, uvula midline. Mucous membranes moist. Neck: Trachea midline, no thyromegaly or masses palpated, and no cervical lymphadenopathy. Supple, full range of motion without nuchal rigidity, or vertebral point tenderness. No Meningismus. Chest/axilla: Normal chest wall appearance and motion. Nontender with no deformity. No lesions are appreciated. Cardiovascular: Regular rate and rhythm with a normal S1 and S2. No gallops, murmurs, or rubs. Normal PMI, no JVD. No pulse deficits. Respiratory: Lungs have equal breath sounds bilaterally, clear to auscultation and percussion. No rales, rhonchi or wheezes noted. No increased work of breathing, no retractions or nasal flaring. Abdomen/GI: Soft, non-tender, with normal bowel sounds. No distension or tympany. No guarding or rebound. No evidence of tenderness throughout. Back: No spinal tenderness. No costovertebral tenderness. Full range of motion. Female : Normal external genitalia. Skin: Warm, dry with normal turgor. Normal color with no rashes, no lesions, and no evidence of cellulitis. MS/ Extremity: Pulses equal, no cyanosis. Neurovascular intact. Full, normal range of motion. Neuro: Awake and alert, GCS 15, oriented to person, place, time, and situation. Cranial nerves II-XII grossly intact. Motor strength 5/5 in all extremities. Sensory grossly intact. Cerebellar exam normal. Normal gait. Psych: Awake, alert, with orientation to person, place and time. Behavior, mood, and affect are within normal limits. Vital Signs: 07:44 BP 102 / 77; Pulse 83; Resp 18; Temp 98.0; Pulse Ox 99% on R/A; Weight 87.54 kg; Height em 5 ft. 1 in. (154.94 cm); Pain 0/10; 09:16 BP 112 / 82; Pulse 72; Resp 18; Pulse Ox 99% on R/A; Pain 0/10; em 07:44 Body Mass Index 36.47 (87.54 kg, 154.94 cm) em MDM: 07:56 Patient medically screened. [facility] 09:02 Data reviewed: vital signs, nurses notes, lab test result(s), radiologic studies, mansi ultrasound. 08/13 07:44 Order name: Quantitative Hcg; Complete Time: 09:02 [facility] 08/13 07:44 Order name: Basic Metabolic Panel; Complete Time: 09:02 [facility] 08/13 07:44 Order name: CBC with Diff; Complete Time: 09:02 [facility] 08/13 08:01 Order name: Urine Dipstick--Ancillary (enter results); Complete Time: 09:02 08/13 08:01 Order name: Urine --Ancillary (enter results); Complete Time: 09:02 08/13 08:58 Order name: Manual Differential; Complete Time: 09:02 EDMS 08/13 07:44 Order name: IV Saline Lock; Complete Time: 07:59 [facility] 08/13 07:44 Order name: Labs collected and sent; Complete Time: 07:59 [facility] 08/13 07:44 Order name: NPO; Complete Time: 07:45 [facility] 08/13 07:44 Order name: Urine Dipstick-Ancillary (obtain specimen); Complete Time: 07:59 [facility] 08/13 07:54 Order name: US Transvaginal Ob [facility] 08/13 10:31 Order name: Urine Culture mh5 Administered Medications: 07:59 Drug: NS 0.9% 1000 ml Route: IV; Rate: 1 bolus; Site: left antecubital; em 09:55 Follow up: IV Status: Completed infusion; IV Intake: 1000ml em Disposition: 08/13/18 09:21 Discharged to Home. Impression: related conditions, unspecified, first trimester. - Condition is Stable. - Discharge Instructions: Abdominal Pain During , First Trimester of , Abdominal Pain During , [id number], Pelvic Rest. - Prescriptions for Vitamin 27- 0.8 mg Oral Tablet - take 1 tablet by ORAL route once daily; 30 tablet. - Medication Reconciliation Form, Thank You Letter, Antibiotic Education, Prescription Opioid Use form. - Follow up: Ira Scruggs MD; When: 2 - 3 days; Reason: Recheck today's complaints, Continuance of care, Re-evaluation by your physician. Follow up: Uri Clement MD; When: 2 - 3 days; Reason: Recheck today's complaints, Re-evaluation by your physician. - Problem is new. - Symptoms have improved. Signatures: Dispatcher [employer] Homero Ware MD MD cha Munoz, Edgar, INSOLE TAPER INSOLE TAPER em Jocelyn Daly RN RN tw2 Corrections: (The following items were deleted from the chart) 09: 09:21 08/13/2018 09:21 Discharged to Home. Impression: related conditions, mansi unspecified, first trimester. Condition is Stable. Forms are Medication Reconciliation Form, Thank You Letter, Antibiotic Education, Prescription Opioid Use. Follow up: Ira Scruggs; When: 2 - 3 days; Reason: Recheck today's complaints, Continuance of care, Re-evaluation by your physician. Problem is new. Symptoms have improved. mansi 10:35 09:22 08/13/2018 09:21 Discharged to Home. Impression: related conditions, em unspecified, first trimester. Condition is Stable. Forms are Medication Reconciliation Form, Thank You Letter, Antibiotic Education, Prescription Opioid Use. Follow up: Ira Scruggs; When: 2 - 3 days; Reason: Recheck today's complaints, Continuance of care, Re-evaluation by your physician. Follow up: Uri Clement; When: 2 - 3 days; Reason: Recheck today's complaints, Re-evaluation by your physician. Problem is new. Symptoms have improved. mansi
--- NOTE | 2018-08-13 10:34 | RAD REPORT ---
EXAM DESCRIPTION: US - Transvaginal OB - 08/13/2018 9:36 am CLINICAL HISTORY: , abdominal and pelvic pain COMPARISON: August 11 FINDINGS: Left ovary is absent. Right ovary shows no suspicious finding. No fluid or blood in the cu l-de-sac. An 18 millimeter right ovarian cyst is present. Intrauterine gestational sac is identified normal in appearance. Yolk sac and pole identified. Cardiac activity is seen measuring 101-115 BPM. No hematoma in the uterus. Small subchorionic hemorrh ages have resolved. Gestational age is estimated 5 weeks 6 days. Calculated GONZALEZ is 04/09/2019. The ri ght adnexal thick walled cystic mass is no longer present or or has transitioned to the thin-walled c yst currently seen. IMPRESSION: Single 5 week 6 day IUP with an GONZALEZ of 04/09/2019 No suspicious hematoma, mass or other worrisome finding in the uterus or adnexa.
== END 2018-08-13 10:35 | disposition home or self-care (01) ==
LOC: ER 07:32
DX: O26.891 Other specified pregnancy related conditions, first trimester (principal); Z3A.08 8 weeks gestation of pregnancy; Z88.5 Allergy status to narcotic agent; Z91.040 Latex allergy status
CPT/HCPCS: 36415; 76817; 80048; 81003; 81025; 84702; 85025; 87086; 87088; 96360; 96361; 99284; J7030

== ENCOUNTER 2019-01-22 07:19 | Emergency (ER) | payer OTHER, SELFPAY ==
[2019-01-22 07:54] LABS: Absolute Lymphocytes (CBC) 1.5 K/uL (0.7-4.9); Basophils % 0.4 % (0-1.3); Hematocrit 36.7 % (36.0-45.0); Lymphocytes % 9.3 % (15.3-44.8); MPV 7.6 fL (7.6-11.3)
[2019-01-22 08:07] LABS: Potassium 4.2 mmol/L (3.5-5.1)
[2019-01-22 08:19] LABS: Urine Blood NEGATIVE (NEG); Urine Glucose NEGATIVE (NEG); Urine Protein TRACE (NEG); Urine Specific Gravity 1.015 (1.005-1.030); Urine pH 8.5 (5.0-7.0)
--- NOTE | 2019-01-22 08:37 | RAD REPORT ---
EXAM DESCRIPTION: CT - Abdomen Pelvis Wo Contrast - 01/22/2019 8:06 am CLINICAL HISTORY: Abdominal pain COMPARISON: None TECHNIQUE: Computed axial tomography of the abdomen and pelvis was obtained. IV and oral contrast we re not requested. All CT scans are performed using dose optimization technique as appropriate and may include automated exposure control or mA/KV adjustment according to patient size. FINDINGS: The evaluation of solid organs, vessels and bowel is limited secondary to the lack of con trast administration. Small, bilateral nonobstructing renal calculi. The liver, spleen, pancreas and adrenals appear grossly normal Normal appendix Diverticula stem from the colon. Mild to moderate stranding adjacent to the proximal sigmoid colon. No extraluminal air is seen. No ab scess 2 centimeter right ovarian cyst without significant free fluid Small umbilical hernia IMPRESSION: Mild to moderate sigmoid diverticulitis
--- NOTE | 2019-01-22 09:01 | ER ---
Nurse's Notes [facility] Name: Vanessa Da Silva Age: 38 yrs Sex: Female : 1980 Arrival Date: 01/22/2019 Time: 07:22 Bed 14 Private MD: Diagnosis: Diverticulitis of intestine, part unspecified, without perforation or abscess without bleeding Presentation: 01/22 07:26 Presenting complaint: Patient states: started yesterday my lower LEFT abdomen is tw2 hurting me, its a sharp pain that comes and goes, i had a BM this morning, took a laxative yesterday to see it that would help, i have had diverticulitis but i havent ate anything out of my realm to cause this, i have been nauseous too. Transition of care: patient was not received from another setting of care. Onset of symptoms was January 22, 2019. Risk Assessment: Do you want to hurt yourself or someone else? Patient reports no desire to harm self or others. Initial Sepsis Screen: Does the patient meet any 2 criteria? No. Patient's initial sepsis screen is negative. Does the patient have a suspected source of infection? No. Patient's initial sepsis screen is negative. Care prior to arrival: None. 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 - Social history:: Smoking status: . - Ebola Screening: : Patient denies travel to an Ebola-affected area in the 21 days before illness onset. Screenin:02 Abuse screen: Denies threats or abuse. Nutritional screening: No deficits noted. tw2 Tuberculosis screening: No symptoms or risk factors identified. Fall Risk None identified. Assessment: 08:04 General: Appears in no apparent distress. obese, Behavior is calm, cooperative, tw2 appropriate for age. Pain: Complains of pain in left lower quadrant. Neuro: Level of Consciousness is awake, alert, obeys commands, Oriented to person, place, time, situation. Cardiovascular: Heart tones S1 S2 Patient's skin is warm and dry. Respiratory: Airway is patent Respiratory effort is even, unlabored, Respiratory pattern is regular, symmetrical, Breath sounds are clear bilaterally. GI: Abdomen is round non-distended, Bowel sounds present X 4 quads. Abd is soft X 4 quads Reports lower abdominal pain. GI: Reports nausea. : No signs and/or symptoms were reported regarding the genitourinary system. EENT: No signs and/or symptoms were reported regarding the EENT system. Derm: No signs and/or symptoms reported regarding the dermatologic system. Musculoskeletal: Range of motion: intact in all extremities. 08:33 Reassessment: Patient appears in no apparent distress at this time. No changes from tw2 previously documented assessment. Patient and/or family updated on plan of care and expected duration. Pain level reassessed. Patient is alert, oriented x 3, equal unlabored respirations, skin warm/dry/pink. 09:10 Reassessment: pt offered pain and nausea medication at this time, pt refused. tw2 09:28 Reassessment: Patient appears in no apparent distress at this time. No changes from tw2 previously documented assessment. Patient and/or family updated on plan of care and expected duration. Pain level reassessed. Patient is alert, oriented x 3, equal unlabored respirations, skin warm/dry/pink. Vital Signs: 07:33 BP 101 / 73; Pulse 68; Resp 18; Temp 98.1(O); Pulse Ox 100% on R/A; Weight 87.54 kg tw2 (R); Height 5 ft. 1 in. (154.94 cm); Pain 8/10; 08:33 BP 115 / 76; Pulse 81; Resp 17; Pulse Ox 100% on R/A; tw2 07:33 Body Mass Index 36.47 (87.54 kg, 154.94 cm) tw2 ED Course: 07:22 Patient arrived in ED. rg4 07:23 Fátima Granado FNP-C is [facility]. kb 07:23 Ernesto Zurita MD is Attending Physician. kb 07:25 Bed in low position. Call light in reach. Pulse ox on. NIBP on. Warm blanket given. tw2 07:28 Jocelyn Daly, RN is Primary Nurse. tw2 07:33 Triage completed. tw2 07:34 Arm band placed on. tw2 07:40 Inserted saline lock: 22 gauge in left antecubital area, using aseptic technique. Blood tw2 collected. 08:09 CT Abd/Pelvis - Without Contrast In Process Unspecified. EDMS 09:11 Awaiting: re-evaluation after medication prior to discharge pt states "i just want yall tw2 to watch me a little bit because i have never taken cipro before", provider notified. 09:12 No provider procedures requiring assistance completed. tw2 09:33 IV discontinued, intact, bleeding controlled, No redness/swelling at site. Pressure tw2 dressing applied. Administered Medications: 09:10 Drug: Cipro 500 mg Route: PO; tw2 09:28 Follow up: Response: No adverse reaction tw2 09:10 Drug: Flagyl 500 mg Route: PO; tw2 09:28 Follow up: Response: No adverse reaction tw2 Outcome: 09:00 Discharge ordered by . kb 09:32 Discharged to home ambulatory. tw2 09:32 Condition: stable 09:32 Discharge instructions given to patient, Instructed on discharge instructions, follow up and referral plans. medication usage, Demonstrated understanding of instructions, follow-up care, medications, Prescriptions given X 4. 09:33 Patient left the ED. tw2 Signatures: Dispatcher [employer] Fátima Mayes, DIGITAL PERFORMANCE ANALYST-C DIGITAL PERFORMANCE ANALYST-Ckb Jocelyn Daly RN RN tw2 Dionna Martinez rg4
--- NOTE | 2019-01-22 09:02 | EDPHYS ---
Physician Documentation [facility] Name: Vanessa Da Silva Age: 38 yrs Sex: Female : 1980 Arrival Date: 01/22/2019 Time: 07:22 Bed 14 Private MD: ED Physician Ernesto Zurita HPI: 01/22 08:35 This 38 yrs old Female presents to ER via Ambulatory with complaints of kb Abdominal Pain. 08:35 The patient presents with abdominal pain in the left lower quadrant. Onset: The kb symptoms/episode began/occurred yesterday. The symptoms do not radiate. Associated signs and symptoms: Pertinent positives: fever, nausea. The symptoms are described as constant. Modifying factors: The symptoms are alleviated by nothing, the symptoms are aggravated by nothing. Severity of pain: At its worst the pain was moderate in the emergency department the pain is unchanged. The patient has experienced a previous episode. The patient has not recently seen a physician. 08:36 Pt reports LLQ pain, nausea and fever since yesterday. Has had similar symptoms in the kb past with diverticulitis. . 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 - Social history:: Smoking status: . - Ebola Screening: : Patient denies travel to an Ebola-affected area in the 21 days before illness onset. ROS: 08:34 ENT: Negative for injury, pain, and discharge, Neck: Negative for injury, pain, and kb swelling, Cardiovascular: Negative for chest pain, palpitations, and edema, Respiratory: Negative for shortness of breath, cough, wheezing, and pleuritic chest pain, Back: Negative for injury and pain, : Negative for injury, bleeding, discharge, and swelling, MS/Extremity: Negative for injury and deformity, Skin: Negative for injury, rash, and discoloration, Neuro: Negative for headache, weakness, numbness, tingling, and seizure. 08:34 Constitutional: Positive for fever. 08:34 Abdomen/GI: Positive for abdominal pain, nausea, Negative for vomiting, diarrhea, constipation. Exam: 08:34 Constitutional: This is a well developed, well nourished patient who is awake, alert, kb and in no acute distress. Head/Face: Normocephalic, atraumatic. ENT: Nares patent. No nasal discharge, no septal abnormalities noted. Tympanic membranes are normal and external auditory canals are clear. Oropharynx with no redness, swelling, or masses, exudates, or evidence of obstruction, uvula midline. Mucous membranes moist. Neck: Trachea midline, no thyromegaly or masses palpated, and no cervical lymphadenopathy. Supple, full range of motion without nuchal rigidity, or vertebral point tenderness. No Meningismus. Chest/axilla: Normal chest wall appearance and motion. Nontender with no deformity. No lesions are appreciated. Cardiovascular: Regular rate and rhythm with a normal S1 and S2. No gallops, murmurs, or rubs. Normal PMI, no JVD. No pulse deficits. Respiratory: Lungs have equal breath sounds bilaterally, clear to auscultation and percussion. No rales, rhonchi or wheezes noted. No increased work of breathing, no retractions or nasal flaring. Back: No spinal tenderness. No costovertebral tenderness. Full range of motion. Skin: Warm, dry with normal turgor. Normal color with no rashes, no lesions, and no evidence of cellulitis. MS/ Extremity: Pulses equal, no cyanosis. Neurovascular intact. Full, normal range of motion. Neuro: Awake and alert, GCS 15, oriented to person, place, time, and situation. Cranial nerves II-XII grossly intact. Motor strength 5/5 in all extremities. Sensory grossly intact. Cerebellar exam normal. Normal gait. 08:34 Abdomen/GI: Inspection: abdomen appears normal, Bowel sounds: normal, in all quadrants, Palpation: soft, in all quadrants, mild abdominal tenderness, in the right upper quadrant, left upper quadrant and right lower quadrant, moderate abdominal tenderness, in the left lower quadrant. Vital Signs: 07:33 BP 101 / 73; Pulse 68; Resp 18; Temp 98.1(O); Pulse Ox 100% on R/A; Weight 87.54 kg tw2 (R); Height 5 ft. 1 in. (154.94 cm); Pain 8/10; 08:33 BP 115 / 76; Pulse 81; Resp 17; Pulse Ox 100% on R/A; tw2 07:33 Body Mass Index 36.47 (87.54 kg, 154.94 cm) tw2 MDM: 07:31 Patient medically screened. kb 08:35 Data reviewed: vital signs, nurses notes. Data interpreted: Pulse oximetry: on room air kb is 100 %. Interpretation: normal. 08:36 ED course: Pt does not want any medication for pain or nausea until after testing is kb complete. Will inform us if she changes her mind. 08:59 Counseling: I had a detailed discussion with the patient and/or guardian regarding: the kb historical points, exam findings, and any diagnostic results supporting the discharge/admit diagnosis, lab results, radiology results, the need for outpatient follow up, a family practitioner, a assistant unit forester, to return to the emergency department if symptoms worsen or persist or if there are any questions or concerns that arise at home. ED course: Discussed options with pt to treat diverticulitis. Pt would like to try PO medications outpatient first and will return for worsening symptoms or inability to tolerate medications. 01/22 07:39 Order name: Basic Metabolic Panel; Complete Time: 08:08 kb 01/22 07:39 Order name: CBC with Diff; Complete Time: 07:57 kb 01/22 07:39 Order name: CT Abd/Pelvis - Without Contrast; Complete Time: 08:55 kb 01/22 08:11 Order name: Urine Dipstick--Ancillary (enter results); Complete Time: 08:20 bd 01/22 08:11 Order name: Urine --Ancillary (enter results); Complete Time: 08:20 bd 01/22 07:39 Order name: IV Saline Lock; Complete Time: 08:05 kb 01/22 07:39 Order name: Labs collected and sent; Complete Time: 08:05 kb Administered Medications: 09:10 Drug: Cipro 500 mg Route: PO; tw2 09:28 Follow up: Response: No adverse reaction tw2 09:10 Drug: Flagyl 500 mg Route: PO; tw2 09:28 Follow up: Response: No adverse reaction tw2 Disposition: 09:35 Co-signature as Attending Physician, Ernesto Zurita MD. rn Disposition: 01/22/19 09:00 Discharged to Home. Impression: Diverticulitis of intestine, part unspecified, without perforation or abscess without bleeding. - Condition is Stable. - Discharge Instructions: Diverticulitis, [id number]. - Prescriptions for Flagyl 500 mg Oral Tablet - take 1 tablet by ORAL route every 8 hours for 10 days; 30 tablet. Zofran 4 mg Oral Tablet - take 1 tablet by ORAL route every 6 hours As needed; 20 tablet. Cipro 500 mg Oral Tablet - take 1 tablet by ORAL route every 12 hours for 10 days; 20 tablet. Diclofenac Sodium 75 mg Oral Tablet, Delayed Release (E.C.) - take 1 tablet by ORAL route 2 times per day As needed; 30 tablet. - Medication Reconciliation Form, Thank You Letter, Antibiotic Education, Prescription Opioid Use, Work release form form. - Follow up: Emergency Department; When: As needed; Reason: Worsening of condition. Follow up: Private Physician; When: 2 - 3 days; Reason: Recheck today's complaints, Continuance of care, Re-evaluation by your physician. Signatures: Dispatcher [employer] EDFátima Khoury, FSR-C FSR-Ckb Ernesto Zurita MD MD rn Jocelyn Daly RN RN tw2 Corrections: (The following items were deleted from the chart) 09:33 09:00 01/22/2019 09:00 Discharged to Home. Impression: Diverticulitis of intestine, tw2 part unspecified, without perforation or abscess without bleeding. Condition is Stable. Forms are Medication Reconciliation Form, Thank You Letter, Antibiotic Education, Prescription Opioid Use. Follow up: Emergency Department; When: As needed; Reason: Worsening of condition. Follow up: Private Physician; When: 2 - 3 days; Reason: Recheck today's complaints, Continuance of care, Re-evaluation by your physician. kb
[2019-01-22] MEDS ORDERED: metroNIDAZOLE 500 MG TABLET ONE (09:04)
[2019-01-22] MEDS ORDERED: CIPROFLOXACIN HCL 500 MG TAB ONE (09:04)
[2019-01-22 09:39] VITALS: TEMP 98.1; O2SAT 100
[2019-01-22 09:40] VITALS: BP 115/76
== END 2019-01-22 09:33 | disposition home or self-care (01) ==
LOC: ER 07:19
DX: K57.92 Diverticulitis of intestine, part unspecified, without perforation or abscess without bleeding (principal); Z88.5 Allergy status to narcotic agent; Z91.013 Allergy to seafood; Z91.040 Latex allergy status; Z91.048 Other nonmedicinal substance allergy status
CPT/HCPCS: 36415; 74176; 80048; 81003; 81025; 85025; 99284

== ENCOUNTER 2019-09-04 22:27 | Emergency (ER) | payer SELFPAY ==
--- OUTSIDE RECORDS SUMMARY | 2019-09-04 22:30 | XMS REPORT | Continuity of Care Document ---
:1980 Author Organization [facility] t Address [address] [place] [address] Care Team Providers Name Role Phone Unavailable Unavailable Unavailable Problems Condition Condition Condition Status Onset Resolution Last Treating Co mments Source Name Details Category Date Date Treatment Clinician Date Sinus Sinus Problem Active [facility] Other Other Problem Active [facility] chronic chronic [facility] Kidney Kidney Problem Active [facility] stones stones [facility] GERD GERD Problem Active [facility] (gastroeso (gastroeso Evy kes - phageal phageal Memoria reflux reflux l disease) disease) [facility] ent Clinics Diverticul Diverticul Problem Active [facility] itis itis [facility] Anxiety Anxiety Problem [facility] Low back Low back Problem [facility] Fibromyalg Fibromyalg Problem Active [facility] ia [facility] Depression Depression Problem [facility] Neck pain Neck pain Problem Active [facility] Oral Oral Problem Active [facility] contracept contracept Evy kes - freddie freddie [facility] prescribed prescribed l [facility] Multiple Multiple Problem Active [facility] allergies [facility] Positive Positive Diagnosis Active [facility] urine urine [facility] Zhao quin test test l [facility]ics Family Family Problem Active [facility] planning planning [facility] Seasonal Seasonal Problem [facility] allergic allergic [facility] rhinitis rhinitis [facility] a [facility] Allergies, Adverse Reactions, Alerts Allergy Allergy Status Severity Reaction(s) Onset Inactive Treating Comm ents Source Name Type Date Date Clinician Garlic Adverse Active Info Not [facility] Reaction Available [facility] Mustard Adverse Active Info Not [facility] Reaction Available [facility] Onions Adverse Active Info Not [facility] Reaction Available [facility] Medications Ordered Filled Start Stop Current Ordering Indication Dosage Frequency Signature Comments Components Source Medication Medication Date Date Medication? Clinician (SIG) Name Name jorge Yes Ira [address] [facility] 07-21 [facility] - 00:[facility]: [facility] 00 [facility] Metronidazo Metronidazo 2019- No Ira [address] [facility] le le 07-21 Millender applicatio Estella es - 00:00: 00:00 n to Memoria 00 :00 affected [facility] ent Clinics Ketoconazol Ketoconazol 2019- No Ira [address] [facility] e e 07-21 Millender applicatio Estella es - 00:00[facility] Procedures This patient has no known procedures. Encounters Start End Encounter Admission Attending Care Care Encounter Source Date/Time Date/Time Type Type Clinicians Facility Department ID 2018-07-27 2018-07-27 [facility] [id number] [facility] 08:20:00 08:20:00 t [facility] Family [facility] Medicine [facility] Results This patient has no known results.
[2019-09-04 23:41] LABS: Urine Bacteria <20 /HPF (<20); Urine Culture Reflex Order REFLEXED; Urine RBC <5 /HPF (NONE SEEN)
[2019-09-04 23:56] LABS: Urine Blood 3+ (NEG); Urine Glucose NEGATIVE (NEG); Urine Protein 1+ (NEG); Urine Specific Gravity 1.015 (1.005-1.030)
[2019-09-05] MEDS ORDERED: CEFTRIAXONE 1000 MG/VIAL ONE (01:04)
[2019-09-05] MEDS ORDERED: WATER FOR INJ,STERILE 10 ML ONE (01:04)
[2019-09-05] MEDS ORDERED: LIDOCAINE 1% MPF 2 ML AMPULE ONE (01:04)
--- NOTE | 2019-09-05 01:10 | ER ---
Nurse's Notes [facility] Name: Vanessa Da Silva Age: 38 yrs Sex: Female : 1980 Arrival Date: 09/04/2019 Time: 22:29 Bed 6 Private MD: Diagnosis: Dysuria;Urinary tract infection, site not specified;Pelvic and perineal pain Presentation: 09/03 22:35 Chief complaint: Patient states: Vaginal pressure for 4 days. Saw her doctor, received ll1 cephalexin for UTI. Took for 5 days, just didn't feel good, so she stopped. Pressure returned today with dysuria. No fevers. Coronavirus screen: Proceed with normal triage. Patient denies a cough. Patient denies shortness of breath or difficulty breathing. Patient denies measured and/or subjective temperature greater than 100.4F prior to today's visit. Patient denies travel on a cruise ship or to a country the [facility] currently lists as an affected area. Patient denies contact with known and/or suspected case of COVID-19. Ebola Screen: Patient denies travel to an Ebola-affected area in the 21 days before illness onset. Initial Sepsis Screen: Does the patient meet any 2 criteria? HR > 90 bpm. No. Patient's initial sepsis screen is negative. Risk Assessment: Do you want to hurt yourself or someone else? Patient reports no desire to harm self or others. Onset of symptoms was August 30, 2019. 22:35 Method Of Arrival: Ambulatory ll1 22:35 Acuity: DEV 3 ll1 09/04 01:59 Initial Sepsis Screen: Does the patient have a suspected source of infection? No. rv Patient's initial sepsis screen is negative. 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 - Social history:: Smoking status: Patient denies any tobacco usage or history of. Patient/guardian denies using alcohol, street drugs, tobacco products. Screenin/03 01:56 Abuse screen: Denies threats or abuse. Denies injuries from another. Nutritional rv screening: No deficits noted. Tuberculosis screening: No symptoms or risk factors identified. Fall Risk None identified. Assessment: 00:59 General: Appears comfortable, Behavior is calm, cooperative. Pain: Complains of pain in rv pelvis Pain currently is 5 out of 10 on a pain scale. Quality of pain is described as pressure. Neuro: Level of Consciousness is awake, alert, obeys commands, Oriented to person, place, time, situation. Cardiovascular: Patient's skin is warm and dry. Respiratory: Airway is patent Respiratory effort is even, unlabored. : Reports discharge, clear. Vital Signs: 09/03 22:35 BP 118 / 94; Pulse 90; Resp 17; Temp 98.1; Pulse Ox 100% ; Weight 90.72 kg; Height 5 ll1 ft. 1 in. (154.94 cm); Pain 5/10; 09/04 01:55 BP 116 / 89; Pulse 86; Resp 16; Temp 98; Pulse Ox 100% on R/A; rv 09/03 22:35 Body Mass Index 37.79 (90.72 kg, 154.94 cm) ll1 ED Course: 09/03 22:29 Patient arrived in ED. cl3 22:38 Triage completed. ll1 22:39 Arm band placed on. ll1 23:04 Urine Microscopic Only Sent. ll1 09/04 00:25 Charles Shin, RN is Primary Nurse. rv 00:41 Homero Crisostomo MD is Attending Physician. mansi 01:00 Patient has correct armband on for positive identification. Pulse ox on. NIBP on. rv 01:21 Assist provider with pelvic exam: Set up pelvic tray. Performed by Homero Crisostomo MD. lp1 01:56 Patient did not have IV access during this emergency room visit. rv Administered Medications: 01:20 Not Given (Duplicate Order): Rocephin (cefTRIAXone) 1 grams IM once mansi 01:30 Drug: Pyridium 200 mg Route: PO; rv 01:54 Follow up: Response: Medication administered at discharge. rv 01:30 Drug: Cipro 500 mg Route: PO; rv 01:54 Follow up: Response: Medication administered at discharge. rv Outcome: 01:10 Discharge ordered by . mansi 01:58 Discharged to home ambulatory. rv 01:58 Condition: good 01:58 Discharge instructions given to patient, Instructed on discharge instructions, follow up and referral plans. medication usage, Demonstrated understanding of instructions, follow-up care, medications, Prescriptions given X 3. 01:59 Patient left the ED. rv Addendum: 09/08/2019 08:55 Addendum: Culture Results: Positive urine culture. No further action required. Bacteria e b sensitive to prescribed antibiotic. Signatures: Homero Crisostomo MD MD cha Pena, Laura, RN RN lp1 Tammy Bernstein Ronaldo RN RN rv Lian Harrison cl3 Joel Harrison RN RN ll1
--- NOTE | 2019-09-05 01:10 | EDPHYS ---
Physician Documentation [facility] Name: Vanessa Da Silva Age: 38 yrs Sex: Female : 1980 Arrival Date: 09/04/2019 Time: 22:29 Bed 6 Private MD: JOSSELINE Physician Homero Crisostomo HPI: 09/04 01:05 This 38 yrs old Female presents to ER via Ambulatory with complaints of mansi Pressure. 01:05 The patient presents with pelvic pain, urinary symptoms, dysuria, frequency, hematuria, mansi urgency, vaginal bleeding that is light. Onset: The symptoms/episode began/occurred just prior to arrival. Modifying factors: The symptoms are alleviated by nothing, the symptoms are aggravated by nothing. Associated signs and symptoms: Pertinent positives: cramping, dysuria, hematuria, vaginal bleeding. Severity of symptoms: At their worst the symptoms were moderate, in the emergency department the symptoms are unchanged. The patient is sexually active, reportedly has a single partner. The patient has not experienced similar symptoms in the past. 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 - Social history:: Smoking status: Patient denies any tobacco usage or history of. Patient/guardian denies using alcohol, street drugs, tobacco products. ROS: 09/04 01:07 Constitutional: Negative for fever, chills, and weight loss, Eyes: Negative for injury, mansi pain, redness, and discharge, ENT: Negative for injury, pain, and discharge, Neck: Negative for injury, pain, and swelling, Cardiovascular: Negative for chest pain, palpitations, and edema, Respiratory: Negative for shortness of breath, cough, wheezing, and pleuritic chest pain, Abdomen/GI: Negative for abdominal pain, nausea, vomiting, diarrhea, and constipation, Back: Negative for injury and pain, MS/Extremity: Negative for injury and deformity, Skin: Negative for injury, rash, and discoloration, Neuro: Negative for headache, weakness, numbness, tingling, and seizure, Psych: Negative for depression, anxiety, suicide ideation, homicidal ideation, and hallucinations, Allergy/Immunology: Negative for hives, rash, and allergies, Endocrine: Negative for neck swelling, polydipsia, polyuria, polyphagia, and marked weight changes. : Positive for pelvic pain, urinary frequency, small amounts, hematuria, burning with urination, difficulty urinating, vaginal bleeding. Exam: 01:07 Constitutional: This is a well developed, well nourished patient who is awake, alert, mansi and in no acute distress. Head/Face: Normocephalic, atraumatic. Eyes: Pupils equal round and reactive to light, extra-ocular motions intact. Lids and lashes normal. Conjunctiva and sclera are non-icteric and not injected. Cornea within normal limits. Periorbital areas with no swelling, redness, or edema. ENT: Nares patent. No nasal discharge, no septal abnormalities noted. Tympanic membranes are normal and external auditory canals are clear. Oropharynx with no redness, swelling, or masses, exudates, or evidence of obstruction, uvula midline. Mucous membranes moist. Neck: Trachea midline, no thyromegaly or masses palpated, and no cervical lymphadenopathy. Supple, full range of motion without nuchal rigidity, or vertebral point tenderness. No Meningismus. Chest/axilla: Normal chest wall appearance and motion. Nontender with no deformity. No lesions are appreciated. Cardiovascular: Regular rate and rhythm with a normal S1 and S2. No gallops, murmurs, or rubs. Normal PMI, no JVD. No pulse deficits. Respiratory: Lungs have equal breath sounds bilaterally, clear to auscultation and percussion. No rales, rhonchi or wheezes noted. No increased work of breathing, no retractions or nasal flaring. Back: No spinal tenderness. No costovertebral tenderness. Full range of motion. Skin: Warm, dry with normal turgor. Normal color with no rashes, no lesions, and no evidence of cellulitis. MS/ Extremity: Pulses equal, no cyanosis. Neurovascular intact. Full, normal range of motion. Neuro: Awake and alert, GCS 15, oriented to person, place, time, and situation. Cranial nerves II-XII grossly intact. Motor strength 5/5 in all extremities. Sensory grossly intact. Cerebellar exam normal. Normal gait. Psych: Awake, alert, with orientation to person, place and time. Behavior, mood, and affect are within normal limits. 01:07 Abdomen/GI: Inspection: distension, Bowel sounds: normal, active, Palpation: mild abdominal tenderness, in the suprapubic area, Liver: no appreciated palpable abnormalities, Hernia: not appreciated. 01:13 : Pelvic Exam: External exam: is normal, no appreciated Bartholin's cyst, no mansi erythema, not excoriated, no evidence of foreign body, no lesions, no ulcerations, Speculum exam: normal findings, no bleeding is noted, bimanual exam reveals normal findings, no cervical motion tenderness, os that is closed, normal sized uterus, discharge, is not appreciated, the nurse was present for the exam. Vital Signs: 09/03 22:35 BP 118 / 94; Pulse 90; Resp 17; Temp 98.1; Pulse Ox 100% ; Weight 90.72 kg; Height 5 ll1 ft. 1 in. (154.94 cm); Pain 5/10; 09/04 01:55 BP 116 / 89; Pulse 86; Resp 16; Temp 98; Pulse Ox 100% on R/A; rv 09/03 22:35 Body Mass Index 37.79 (90.72 kg, 154.94 cm) ll1 MDM: 00:41 Patient medically screened. mansi 01:08 Data reviewed: vital signs, nurses notes, lab test result(s), urinalysis, pyuria. mansi 01:11 Differential diagnosis: dysmenorrhea, menometrorrhagia, menorrhea, nonspecific mansi abdominal pain, pelvic inflammatory disease, urinary tract infection. Data interpreted: monitor and storage bin tender: rate is 90 beats/min, Pulse oximetry: on room air is 100 %. Counseling: I had a detailed discussion with the patient and/or guardian regarding: the historical points, exam findings, and any diagnostic results supporting the discharge/admit diagnosis, lab results, the need for outpatient follow up, for definitive care, an OB/Gyne specialist. ED course: follow up pricing/signage team member. 01:20 ED course: pt refused shot of rocephin, changed to cipro 500mg po x1. mansi 09/03 23:01 Order name: Urine Microscopic Only; Complete Time: 00:49 lp1 09/03 23:34 Order name: Urine Dipstick--Ancillary (enter results); Complete Time: 00:49 ar5 09/03 23:34 Order name: Urine --Ancillary (enter results); Complete Time: 00:49 [facility] 09/03 23:42 Order name: Urine Culture [facility] 09/04 00:49 Order name: Pelvic Exam Setup; Complete Time: 00:52 mansi Administered Medications: 01:20 Not Given (Duplicate Order): Rocephin (cefTRIAXone) 1 grams IM once mansi 01:30 Drug: Pyridium 200 mg Route: PO; rv 01:54 Follow up: Response: Medication administered at discharge. rv 01:30 Drug: Cipro 500 mg Route: PO; rv 01:54 Follow up: Response: Medication administered at discharge. rv Disposition: 09/05/19 01:10 Discharged to Home. Impression: Dysuria, Urinary tract infection, site not specified, Pelvic and perineal pain. - Condition is Stable. - Discharge Instructions: Dysuria, Pelvic Pain, Female, Urinary Tract Infection, Adult, Pelvic Pain, Female, [id number], Urinary Tract Infection, Adult, [id number]. - Prescriptions for Ibuprofen 600 mg Oral Tablet - take 1 tablet by ORAL route every 8 hours As needed take with food; 21 tablet. Pyridium 200 mg Oral Tablet - take 1 tablet by ORAL route every 8 hours for 3 days; 9 tablet. Cipro 500 mg Oral Tablet - take 1 tablet by ORAL route every 12 hours for 7 days; 14 tablet. - Medication Reconciliation Form, Thank You Letter, Antibiotic Education, Prescription Opioid Use form. - Follow up: Private Physician; When: 2 - 3 days; Reason: Recheck today's complaints, Continuance of care, Re-evaluation by your physician. - Problem is new. - Symptoms have improved. Signatures: Dispatcher [employer] [facility] Homero Crisostomo MD MD cha Vicente, Ronaldo, RN RN Joel Johnson RN RN ll1 Corrections: (The following items were deleted from the chart) 01:59 01:10 09/05/2019 01:10 Discharged to Home. Impression: Dysuria; Urinary tract rv infection, site not specified; Pelvic and perineal pain. Condition is Stable. Forms are Medication Reconciliation Form, Thank You Letter, Antibiotic Education, Prescription Opioid Use. Follow up: Private Physician; When: 2 - 3 days; Reason: Recheck today's complaints, Continuance of care, Re-evaluation by your physician. Problem is new. Symptoms have improved. mansi
[2019-09-05] MEDS ORDERED: PHENAZOPYRIDINE 100MG TAB PO ONE ×2 (01:29→01:31)
[2019-09-05] MEDS ORDERED: CIPROFLOXACIN HCL 500 MG TAB ONE (01:32)
[2019-09-05 02:09] VITALS: O2SAT 100
[2019-09-05 02:10] VITALS: BP 116/89; TEMP 98
== END 2019-09-05 01:59 | disposition home or self-care (01) ==
LOC: ER 22:27
DX: N39.0 Urinary tract infection, site not specified (principal); R30.0 Dysuria; Z88.5 Allergy status to narcotic agent; Z91.013 Allergy to seafood; Z91.040 Latex allergy status; Z91.048 Other nonmedicinal substance allergy status
CPT/HCPCS: 81003; 81015; 81025; 87077; 87086; 87088; 87186; 99284; J2001

== ENCOUNTER 2020-06-01 21:18 | Emergency (ER) | payer SELFPAY ==
--- OUTSIDE RECORDS SUMMARY | 2020-06-01 21:21 | XMS REPORT | Continuity of Care Document ---
:1980 Author Organization [facility] t Address [address] [place] [address] Care Team Providers Name Role Phone Unavailable Unavailable Unavailable Problems Condition Condition Condition Status Onset Resolution Last Treating Co mments Source Name Details Category Date Date Treatment Clinician Date Sinus Sinus Problem Active [facility] Other Other Problem Active [facility] chronic chronic [facility] pain pain [facility] Kidney Kidney Problem Active [facility] stones stones [facility] GERD GERD Problem Active [facility] (gastroeso (gastroeso Evy kes - phageal phageal Memoria reflux reflux l disease) disease) Outpat i ent Clinics Diverticul Diverticul Problem Active [facility] itis itis [facility] Anxiety Anxiety Problem [facility] Low back Low back Problem [facility] Fibromyalg Fibromyalg Problem Active [facility] ia ia [facility] Depression Depression Problem Active [facility] Neck pain Neck pain Problem Active [facility] Oral Oral Problem Active [facility] contracept contracept Evy kes - freddie freddie Memoria prescribed prescribed l [facility]ics Multiple Multiple Problem Active [facility] allergies allergies [facility] - [facility] Positive Positive Diagnosis Active [facility] urine urine [facility] Zhao quin test test l [facility]ics Family Family Problem Active [facility] planning planning [facility] Seasonal Seasonal Problem Active [facility] allergic allergic [facility] - rhinitis rhinitis Memori a l [facility] Allergies, Adverse Reactions, Alerts Allergy Allergy Status Severity Reaction(s) Onset Inactive Treating Comm ents Source Name Type Date Date Clinician Garlic Adverse Active Info Not [facility] Reaction Available [facility] Mustard Adverse Active Info Not [facility] Reaction Available [facility] Onions Adverse Active Info Not [facility] Reaction Available [facility] Medications Ordered Filled Start Stop Current Ordering Indication Dosage Frequency Signature Comments Components Source Medication Medication Date Date Medication? Clinician (SIG) Name Name Yes Ira [address] [facility] 07-21 Millender [facility] - 00:00: Memoria 00 [facility] Metronidazo Metronidazo 2019- No Ira [address] [facility] le le 07-21 Millender applicatio Estella es - 00:00: 00:00 n to Memoria 00 :00 affected [facility] Clinics Ketoconazol Ketoconazol 2019- No Ira [address] [facility] e e 07-21 Millender applicatio Estella es - 00:00[facility] Procedures This patient has no known procedures. Encounters Start End Encounter Admission Attending Care Care Encounter Source Date/Time Date/Time Type Type Clinicians Facility Department ID 2018-07-27 2018-07-27 [facility] [id number] [facility] [address] 08:20:00 08:20:00 [facility] Medicine [facility] Results This patient has no known results.
[2020-06-01 22:06] LABS: Absolute Lymphocytes (CBC) 3.1 K/uL (0.7-4.9); Basophils % 0.6 % (0-1.3); Hematocrit 36.7 % (36.0-45.0); Lymphocytes % 31.3 % (15.3-44.8); MPV 7.3 fL (7.6-11.3); RBC Red Blood Cell Count 4.21 M/uL (3.86-4.86)
[2020-06-01 22:15] LABS: Protime INR 0.93
[2020-06-01 22:28] LABS: BUN Blood Urea Nitrogen 15 mg/dL (7-18); Bicarbonate 27 mmol/L (21-32); Glucose Level 99 mg/dL (74-106); Lipase 163 U/L (73-393); Magnesium 2.2 mg/dL (1.8-2.4); Potassium 3.8 mmol/L (3.5-5.1); Sodium Level 140 mmol/L (136-145); Troponin (Emerg Dept Use Only) < 0.02 ng/mL (0.0-0.045)
[2020-06-01 22:32] LABS: Barbiturates NEGATIVE (NEGATIVE); Benzodiazepines NEGATIVE (NEGATIVE); Cocaine NEGATIVE (NEGATIVE); METHAMPHETAM NEGATIVE (NEGATIVE); Methadone NEGATIVE (NEGATIVE); Opiates NEGATIVE (NEGATIVE); Phencyclidine NEGATIVE (NEGATIVE); THC Cannibis NEGATIVE (NEGATIVE)
[2020-06-01 23:06] LABS: Urine Blood TRACE (NEG); Urine Glucose NEGATIVE (NEG); Urine Protein NEGATIVE (NEG); Urine Specific Gravity 1.015 (1.005-1.030); Urine pH 6.5 (5.0-7.0)
[2020-06-01] MEDS ORDERED: ASPIRIN 81 MG CHEWABLE TABLET ONE (23:06)
--- NOTE | 2020-06-01 23:35 | ER ---
Nurse's Notes [facility] Name: Vanessa Da Silva Age: 39 yrs Sex: Female : 1980 Arrival Date: 06/01/2020 Time: 21:19 Bed 7 Private MD: Diagnosis: Paresthesias Presentation: 06/01 21:25 Chief complaint: Patient states: i've been having left arm numbness/achy an hour ago, mg2 dizzy 20 mins ago. denies weakness. Coronavirus screen: Client denies travel out of the [place] in the last 14 days. At this time, the client does not indicate any symptoms associated with coronavirus-19. Ebola Screen: No symptoms or risks identified at this time. Initial Sepsis Screen: Does the patient meet any 2 criteria? No. Patient's initial sepsis screen is negative. Does the patient have a suspected source of infection? No. Patient's initial sepsis screen is negative. Risk Assessment: Do you want to hurt yourself or someone else? Patient reports no desire to harm self or others. Onset of symptoms was June 01, 2020 at 20:30. 21:25 Method Of Arrival: Ambulatory mg2 21:25 Acuity: DEV 3 mg2 21:40 No acute neurological deficit is noted. The patients blood glucose was checked before arriving to the hospital and was found to be normal. Triage Assessment: 21:40 Neuro: Reports paresthesias in left arm. 21:40 The onset of the patients symptoms was June 01, 2020 at 20:30. 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 N/A - Unknown Stroke Activation: Physician: Stroke Attending; Name: ; Notified At: 21:45; Arrived At: Physician: Chief Stroke Resident; Name: ; Notified At: 21:45; Arrived At: Physician: Stroke Resident; Name: ; Notified At: 21:45; Arrived At: Physician: ED Attending; Name: ; Notified At: 21:45; Arrived At: Physician: ED Resident; Name: ; Notified At: 21:45; Arrived At: Historical: - Allergies: 21:28 Codeine; mg2 21:28 Demerol; mg2 21:28 Latex, Natural Rubber; mg2 21:28 SHELLFISH; mg2 - Home Meds: 21:28 None [Active]; mg2 - PMHx: 21:28 palpitations; mg2 - PSHx: 21:28 ; mg2 - Immunization history:: Flu vaccine status is unknown. - Social history:: Smoking status: Patient denies any tobacco usage or history of. Patient uses alcohol, Patient/guardian denies using street drugs, IV drugs. Screenin:29 VAN Screening: Arm Drift: Patient shows no arm weakness. Patient is VAN negative. mg2 22:00 Abuse screen: Denies threats or abuse. Denies injuries from another. Nutritional wh screening: No deficits noted. Tuberculosis screening: No symptoms or risk factors identified. Fall Risk None identified. Assessment: 21:36 Reassessment: Dr Jennings notified of pt's symptoms no orders at this time. bb 21:40 General: Appears in no apparent distress. Behavior is calm, cooperative, appropriate wh for age. Pain: Denies pain. Neuro: Level of Consciousness is awake, alert, obeys commands, Oriented to person, place, time, situation, Appropriate for age Pantograph Watcher are equal bilaterally Moves all extremities. Gait is steady, Speech is normal, Facial symmetry appears normal, Pupils are PERRLA, paresthesias in left arm. Cardiovascular: Heart tones S1 S2. Respiratory: Airway is patent Respiratory effort is even, unlabored, Respiratory pattern is regular, symmetrical, Breath sounds are clear bilaterally. GI: Abdomen is round non-distended. : No signs and/or symptoms were reported regarding the genitourinary system. EENT: No signs and/or symptoms were reported regarding the EENT system. Derm: Skin is intact, is healthy with good turgor, Skin is pink, warm \T\ dry. normal. Musculoskeletal: Range of motion: intact in all extremities. 21:40 VAN Scoring: Arm Drift: Patients demonstrates NO arm weakness. Patient is VAN Negative. wh Visual Disturbance: No visual disturbance noted. Aphasia: No aphasia noted. Neglect: No neglect noted. Patient has been NPO before screening. The patient is alert, and able to follow commands. The patient does not exhibit slurred or garbled speech. The patient is not exhibiting difficulty speaking. The patient does not exhibit difficulty understanding words. The patient is able to swallow own secretions with no drooling or need for suction. Patient tolerated one teaspoon of water. No drooling, immediate coughing, gurgling, or clearing of the throat was noted. The patient passed the bedside swallow screening. Oral medications may be given as ordered. Contact Physician for further diet orders. Provider notified of bedside swallow screening results: Farhat Murrell RN. 21:41 General: code stroke called. mg2 21:45 Reassessment: Pt to CT scan. wh 21:45 The patient tolerated 90mL of water. No drooling, immediate coughing, gurgling, or wh clearing of the throat was noted. 23:00 Reassessment: Patient appears in no apparent distress at this time. No changes from previously documented assessment. Patient and/or family updated on plan of care and expected duration. Pain level reassessed. Patient is alert, oriented x 3, equal unlabored respirations, skin warm/dry/pink. Vital Signs: 21:25 BP 129 / 90; Pulse 83; Resp 18; Temp 98.2; Pulse Ox 100% on R/A; Weight 90.72 kg; mg2 Height 5 ft. 1 in. (154.94 cm); 23:00 BP 120 / 86; Pulse 77; Resp 18; Pulse Ox 100% on R/A; wh 21:25 Body Mass Index 37.79 (90.72 kg, 154.94 cm) mg2 NIH Stroke Scale Scores: 21:40 NIHSS Score: 0 22:26 NIHSS Score: 0 [facility] ED Course: 21:19 Patient arrived in ED. cl3 21:28 Triage completed. mg2 21:28 Arm band placed on. mg2 21:37 Dylon Jennings MD is Attending Physician. 7 21:39 Farhat Murrell, RN is Primary Nurse. wh 21:52 CT Stroke Brain w/o Contrast In Process Unspecified. EDMS 21:55 Inserted saline lock: 20 gauge in left antecubital area, using aseptic technique. Blood wh collected. 22:00 Patient has correct armband on for positive identification. Placed in gown. Bed in low wh position. Call light in reach. Side rails up X 1. monitor worker on. Pulse ox on. NIBP on. 22:44 Stroke CXR 1 View In Process Unspecified. EDMS 23:33 Lucia Hood MD is Referral Physician. mh7 23:33 Nathan Zafar MD is Referral Physician. 7 23:47 No provider procedures requiring assistance completed. IV discontinued, intact, bleeding controlled, No redness/swelling at site. Administered Medications: 22:52 Not Given (Patient Refused): Aspirin Chewable Tablet 162 mg PO once Point of Care Testing: Blood Glucose: 22:00 Blood Glucose: 102 mg/dL; Ranges: Outcome: 23:34 Discharge ordered by . [facility] 23:47 Discharged to home ambulatory. 23:47 Condition: stable 23:47 Discharge instructions given to patient, Instructed on discharge instructions, follow up and referral plans. POC Demonstrated understanding of instructions, follow-up care, POC 23:48 Patient left the ED. NIH Stroke Scale - NIH Stroke Score Date: 06/01/2020 Time: 21:40 Total Score = 0 1a. Level of Consciousness (LOC) - 0(Alert) 1b. Level of Consciousness (LOC) (Year \T\ Age) - 0(Both) 1c. LOC Commands (Open \T\ Closes Eyes/Parish Nurse) - 0(Both) 2. Best Gaze (Lateral Gaze Paresis) - 0(Normal) 3. Visual Field Loss - 0(No visual loss) 4. Facial Palsy - 0(Normal) 5a. Left Arm: Motor (10-second hold) - 0(No drift) 5b. Right Arm: Motor (10-second hold) - 0(No drift) 6a. Left Leg: Motor (5-second hold - always test supine) - 0(No drift) 6b. Right Leg: Motor (5-second hold - always test supine) - 0(No drift) 7. Limb Ataxia (finger/nose \T\ heel/gotti - test with eyes open) - 0(Absent) 8. Sensory Loss (pinprick arms/legs/face) - 0(Normal) 9. Best Language: Aphasia (description/naming/reading) - 0(No aphasia) 10. Dysarthria (speech clarity - read or repeat words) - 0(Normal) 11. Extinction and Inattention (visual/tactile/auditory/spatial/personal) - 0(No abnormality) Initials: NIH Stroke Scale - NIH Stroke Score Date: 06/01/2020 Time: 22:26 Total Score = 0 1a. Level of Consciousness (LOC) - 0(Alert) 1b. Level of Consciousness (LOC) (Year \T\ Age) - 0(Both) 1c. LOC Commands (Open \T\ Closes Eyes/Parish Nurse) - 0(Both) 2. Best Gaze (Lateral Gaze Paresis) - 0(Normal) 3. Visual Field Loss - 0(No visual loss) 4. Facial Palsy - 0(Normal) 5a. Left Arm: Motor (10-second hold) - 0(No drift) 5b. Right Arm: Motor (10-second hold) - 0(No drift) 6a. Left Leg: Motor (5-second hold - always test supine) - 0(No drift) 6b. Right Leg: Motor (5-second hold - always test supine) - 0(No drift) 7. Limb Ataxia (finger/nose \T\ heel/gotti - test with eyes open) - 0(Absent) 8. Sensory Loss (pinprick arms/legs/face) - 0(Normal) 9. Best Language: Aphasia (description/naming/reading) - 0(No aphasia) 10. Dysarthria (speech clarity - read or repeat words) - 0(Normal) 11. Extinction and Inattention (visual/tactile/auditory/spatial/personal) - 0(No abnormality) Initials: [facility] Signatures: Dispatcher [employer] Kay Chawla RN RN bb Habalo, Winsy, RN RN Sonu Bradley RN RN [facility] Lian Harrison cl3 Dylon Jennings MD MD 7 Corrections: (The following items were deleted from the chart) 23:07 21:40 The onset of the patients symptoms was June 01, 2020 at 23:06 [facility]
--- NOTE | 2020-06-01 23:35 | EDPHYS ---
Physician Documentation [facility] Name: Vanessa Da Silva Age: 39 yrs Sex: Female : 1980 Arrival Date: 06/01/2020 Time: 21:19 Bed 7 Private MD: ED Physician Dylon Jennings HPI: 06/01 21:57 This 39 yrs old Female presents to ER via Ambulatory with complaints of mh7 Numbness Of Face, Numbness Of Arm. 21:57 The patient's problem is reported as paresthesias, in left upper extremity, in left mh7 side of face. Onset: The symptoms/episode began/occurred just prior to arrival, today, 1 hour [employer]. 22:26 Duration: The episode is continuous. Context: the episode(s) was witnessed, by no one, mh7 symptoms became apparent 1 hour [employer], occurred at home, occurred while the patient was sitting, Possible contributing factors include: None. The symptoms are alleviated by nothing. The symptoms are aggravated by nothing. Associated signs and symptoms: Pertinent positives: lightheadedness, numbness, tingling, Pertinent negatives: abdominal pain, agitation, ataxia, blurred vision, chest pain, combativeness, confusion, diaphoresis, diarrhea, dizziness, headache, nausea, palpitations, seizure, shortness of breath, vertigo, vomiting, weakness. Severity of symptoms: At their worst the symptoms were moderate today, in the emergency department the symptoms have improved markedly. Patient's baseline: Neuro: alert and fully oriented, Motor: no deficits, Ambulation: walks without assistance, Speech: normal. PARTS LISTER: 22:00 LMP N/A - Unknown wh Historical: - Allergies: 21:28 Codeine; mg2 21:28 Demerol; mg2 21:28 Latex, Natural Rubber; mg2 21:28 SHELLFISH; mg2 - Home Meds: 21:28 None [Active]; mg2 - PMHx: 21:28 palpitations; mg2 - PSHx: 21:28 ; mg2 - Immunization history:: Flu vaccine status is unknown. - Social history:: Smoking status: Patient denies any tobacco usage or history of. Patient uses alcohol, Patient/guardian denies using street drugs, IV drugs. ROS: 22:26 Constitutional: Negative for fever, chills, and weight loss, Eyes: Negative for injury, mh7 pain, redness, and discharge, ENT: Negative for injury, pain, and discharge, Neck: Negative for injury, pain, and swelling, Cardiovascular: Negative for chest pain, palpitations, and edema, Respiratory: Negative for shortness of breath, cough, wheezing, and pleuritic chest pain, Abdomen/GI: Negative for abdominal pain, nausea, vomiting, diarrhea, and constipation, Back: Negative for injury and pain, : Negative for injury, bleeding, discharge, and swelling, Skin: Negative for injury, rash, and discoloration, Psych: Negative for depression, anxiety, suicide ideation, homicidal ideation, and hallucinations, Allergy/Immunology: Negative for hives, rash, and allergies, Endocrine: Negative for neck swelling, polydipsia, polyuria, polyphagia, and marked weight changes, Hematologic/Lymphatic: Negative for swollen nodes, abnormal bleeding, and unusual bruising. Exam: 22:26 Radiologist reports: No acute findings [facility] 22:26 Constitutional: This is a well developed, well nourished patient who is awake, alert, and in no acute distress. Head/Face: Normocephalic, atraumatic. Eyes: Pupils equal round and reactive to light, extra-ocular motions intact. Lids and lashes normal. Conjunctiva and sclera are non-icteric and not injected. Cornea within normal limits. Periorbital areas with no swelling, redness, or edema. Neck: Trachea midline, no thyromegaly or masses palpated, and no cervical lymphadenopathy. Supple, full range of motion without nuchal rigidity, or vertebral point tenderness. No Meningismus. Chest/axilla: Normal chest wall appearance and motion. Nontender with no deformity. No lesions are appreciated. Cardiovascular: Regular rate and rhythm with a normal S1 and S2. No gallops, murmurs, or rubs. Normal PMI, no JVD. No pulse deficits. Respiratory: Lungs have equal breath sounds bilaterally, clear to auscultation and percussion. No rales, rhonchi or wheezes noted. No increased work of breathing, no retractions or nasal flaring. Abdomen/GI: Soft, non-tender, with normal bowel sounds. No distension or tympany. No guarding or rebound. No evidence of tenderness throughout. Back: No spinal tenderness. No costovertebral tenderness. Full range of motion. Skin: Warm, dry with normal turgor. Normal color with no rashes, no lesions, and no evidence of cellulitis. MS/ Extremity: Pulses equal, no cyanosis. Neurovascular intact. Full, normal range of motion. Neuro: Awake and alert, GCS 15, oriented to person, place, time, and situation. Cranial nerves II-XII grossly intact. Motor strength 5/5 in all extremities. Sensory grossly intact. Cerebellar exam normal. Normal gait. Psych: Awake, alert, with orientation to person, place and time. Behavior, mood, and affect are within normal limits. Vital Signs: 21:25 BP 129 / 90; Pulse 83; Resp 18; Temp 98.2; Pulse Ox 100% on R/A; Weight 90.72 kg; mg2 Height 5 ft. 1 in. (154.94 cm); 23:00 BP 120 / 86; Pulse 77; Resp 18; Pulse Ox 100% on R/A; wh 21:25 Body Mass Index 37.79 (90.72 kg, 154.94 cm) mg2 NIH Stroke Scale Scores: 21:40 NIHSS Score: 0 22:26 NIHSS Score: 0 7 MDM: 22:26 Physician consultation: Nathan Zafar MD was contacted at 22:15, regarding patient's [facility] condition, and will see patient in inpatient room. 23:24 Differential diagnosis: CVA, TIA, metabolic disorder, drug effects, Paresthesias. Data [facility] reviewed: vital signs, nurses notes, lab test result(s), cardiac enzymes, CBC, drug level(s), electrolytes, urinalysis, urine drug screen, UPT: negative EKG, radiologic studies, CT scan, plain films. Data interpreted: Pulse oximetry: on room air is 100 %. Interpretation: normal. Counseling: I had a detailed discussion with the patient and/or guardian regarding: the historical points, exam findings, and any diagnostic results supporting the discharge/admit diagnosis, lab results, radiology results, to return to the emergency department if symptoms worsen or persist or if there are any questions or concerns that arise at home. 23:28 Refusal of service: The patient/guardian displays adequate decision making capability [facility] and despite a detailed discussion of alternatives, benefits, risks, and consequences refuses: Admission to the hospital for further work-up and treatment, Medications, Aspirin. ED course: Discussed with Dr. Zafar patient symptoms completely resolved but she declined any medication including Aspirin or TPA. Reported having acid reflux symptoms about 30 minutes prior to symptoms she presented for., less likely CVA or TIA. Well appearing, NAD, VSS, no focal neurological deficits. Ambulating without difficulty. She requests to be discharged from the ED. She will follow up with her doctor but agreed to return to the ED if she has any concerns.. 23:[address] [facility] 06/01 21:48 Order name: Basic Metabolic Panel; Complete Time: 22:53 [facility] 06/01 21:48 Order name: CBC with Diff; Complete Time: 22:18 [facility] 06/01 21:48 Order name: Protime (+inr); Complete Time: 22:18 [facility] 06/01 21:48 Order name: Ptt, Activated; Complete Time: 22:18 [facility] 06/01 21:48 Order name: UDS; Complete Time: 22:53 [facility] 06/01 21:49 Order name: Lipase; Complete Time: 22:53 [facility] 06/01 21:48 Order name: CT Stroke Brain w/o Contrast [facility] 06/01 21:48 Order name: Stroke CXR 1 View 06/01 21:49 Order name: Magnesium; Complete Time: 22:53 [facility] 06/01 21:49 Order name: Troponin (emerg Dept Use Only); Complete Time: 22:53 [facility] 06/01 22:09 Order name: Glucose, Ancillary Testing; Complete Time: 22:18 [facility] 06/01 22:11 Order name: Urine Dipstick--Ancillary (enter results); Complete Time: 23:19 de 06/01 22:11 Order name: Urine --Ancillary (enter results); Complete Time: 23:19 de 06/01 22:31 Order name: Folic Acid,Serum (folate) [facility] 06/01 21:48 Order name: EKG; Complete Time: 21:49 [facility] 06/01 21:48 Order name: Accucheck; Complete Time: 22:10 [facility] 06/01 21:48 Order name: Cardiac monitoring; Complete Time: 22:10 [facility] 06/01 21:48 Order name: EKG - Nurse/Tech; Complete Time: 22:10 [facility] 06/01 21:48 Order name: IV Saline Lock; Complete Time: 22:10 [facility] 06/01 21:48 Order name: Labs collected and sent; Complete Time: 22:10 [facility] 06/01 21:48 Order name: NPO; Complete Time: 22:11 06/01 21:48 Order name: O2 Per Protocol; Complete Time: 22:11 06/01 21:48 Order name: O2 Sat Monitoring; Complete Time: 22:11 [facility] 06/01 21:48 Order name: Stroke Swallow Screen; Complete Time: 22:10 06/01 21:48 Order name: Urine Dipstick-Ancillary (obtain specimen); Complete Time: 22:10 [facility] 06/01 21:48 Order name: Urine Test (obtain specimen); Complete Time: 22: Administered Medications: 22:52 Not Given (Patient Refused): Aspirin Chewable Tablet 162 mg PO once wh Point of Care Testing: Blood Glucose: 22:00 Blood Glucose: 102 mg/dL; Ranges: Critical Glucose Levels:Adult <50 mg/dl or >400 mg/dl <40 mg/dl or >180 mg/dl Disposition: 06/01/20 23:34 Discharged to Home. Impression: Paresthesias. - Condition is Stable. - Discharge Instructions: Paresthesia, [id number]. - Medication Reconciliation Form, Thank You Letter, Antibiotic Education, Prescription Opioid Use form. - Follow up: Private Physician; When: 1 - 2 days; Reason: Worsening of condition, Recheck today's complaints, Continuance of care, Re-evaluation by your physician. Follow up: Lucia Hood MD; When: 1 - 2 days; Reason: Worsening of condition, Recheck today's complaints. Follow up: Nathan Zafar MD; When: 1 - 2 days; Reason: Worsening of condition, Recheck today's complaints. - Problem is new. - Symptoms are resolved. NIH Stroke Scale - NIH Stroke Score Date: 06/01/2020 Time: 21:40 Total Score = 0 1a. Level of Consciousness (LOC) - 0(Alert) 1b. Level of Consciousness (LOC) (Year \T\ Age) - 0(Both) 1c. LOC Commands (Open \T\ Closes Eyes/Training And Development Specialist) - 0(Both) 2. Best Gaze (Lateral Gaze Paresis) - 0(Normal) 3. Visual Field Loss - 0(No visual loss) 4. Facial Palsy - 0(Normal) 5a. Left Arm: Motor (10-second hold) - 0(No drift) 5b. Right Arm: Motor (10-second hold) - 0(No drift) 6a. Left Leg: Motor (5-second hold - always test supine) - 0(No drift) 6b. Right Leg: Motor (5-second hold - always test supine) - 0(No drift) 7. Limb Ataxia (finger/nose \T\ heel/gotti - test with eyes open) - 0(Absent) 8. Sensory Loss (pinprick arms/legs/face) - 0(Normal) 9. Best Language: Aphasia (description/naming/reading) - 0(No aphasia) 10. Dysarthria (speech clarity - read or repeat words) - 0(Normal) 11. Extinction and Inattention (visual/tactile/auditory/spatial/personal) - 0(No abnormality) Initials: NIH Stroke Scale - NIH Stroke Score Date: 06/01/2020 Time: 22:26 Total Score = 0 1a. Level of Consciousness (LOC) - 0(Alert) 1b. Level of Consciousness (LOC) (Year \T\ Age) - 0(Both) 1c. LOC Commands (Open \T\ Closes Eyes/Training And Development Specialist) - 0(Both) 2. Best Gaze (Lateral Gaze Paresis) - 0(Normal) 3. Visual Field Loss - 0(No visual loss) 4. Facial Palsy - 0(Normal) 5a. Left Arm: Motor (10-second hold) - 0(No drift) 5b. Right Arm: Motor (10-second hold) - 0(No drift) 6a. Left Leg: Motor (5-second hold - always test supine) - 0(No drift) 6b. Right Leg: Motor (5-second hold - always test supine) - 0(No drift) 7. Limb Ataxia (finger/nose \T\ heel/gotti - test with eyes open) - 0(Absent) 8. Sensory Loss (pinprick arms/legs/face) - 0(Normal) 9. Best Language: Aphasia (description/naming/reading) - 0(No aphasia) 10. Dysarthria (speech clarity - read or repeat words) - 0(Normal) 11. Extinction and Inattention (visual/tactile/auditory/spatial/personal) - 0(No abnormality) Initials: mh7 Signatures: Dispatcher [employer] EDFarhat Lipscomb RN RN Sonu Bradley RN RN [facility] Dylon Jennings MD MD mh7 Corrections: (The following items were deleted from the chart) 23:48 23:34 06/01/2020 23:34 Discharged to Home. Impression: Paresthesias. Condition wh is Stable. Forms are Medication Reconciliation Form, Thank You Letter, Antibiotic Education, Prescription Opioid Use. Follow up: Private Physician; When: 1 - 2 days; Reason: Worsening of condition, Recheck today's complaints, Continuance of care, Re-evaluation by your physician. Follow up: Lucia Hood; When: 1 - 2 days; Reason: Worsening of condition, Recheck today's complaints. Follow up: Nathan Zafar; When: 1 - 2 days; Reason: Worsening of condition, Recheck today's complaints. Problem is new. Symptoms are resolved. 7
[2020-06-02 03:19] VITALS: TEMP 98.2; O2SAT 100
[2020-06-02 03:21] VITALS: BP 120/86
--- NOTE | 2020-06-02 08:14 | RAD REPORT ---
EXAM DESCRIPTION: RAD - Chest Single View - 06/01/2020 10:44 pm CLINICAL HISTORY: possible CVA, left-sided arm pain and numbness, Stroke protocol chest film COMPARISON: None TECHNIQUE: AP portable chest image was obtained 06/01/2020 10:44 pm . FINDINGS: Lungs are clear. Heart and vasculature are normal. No measurable pleural effusion and no p neumothorax. No acute bony abnormality seen. No acute aortic findings suspected. IMPRESSION: No acute cardiopulmonary process.
--- NOTE | 2020-06-02 12:01 | RAD REPORT ---
EXAM DESCRIPTION: CT - Ct Stroke Brain Wo Cont - 06/02/2020 5:41 am ADDENDUM #1 CODE STROKE PROTOCOL CONFERENCE CALL: The findings were verbally discussed via telephone conference with Dr. Dylon Jennings on 06/01/2020 10:04 PM FOUNDING PARTNER. The results were acknowledged and understood. Electronically signed by: Jim Brian MD 06/01/2020 10:04 PM FOUNDING PARTNER End of Addendum EXAM DESCRIPTION: CT HEAD WITHOUT IV CONTRAST CLINICAL HISTORY: Left arm numbness since 8: 00 PM TECHNIQUE: Contiguous axial CT images obtained through the brain without IV contrast. Coronal and sa gittal reformatted images were provided. This exam was performed according to our departmental dose-optimization program, which includes autom ated exposure control, adjustment of the mA and/or kV according to patient size and/or use of iterati ve reconstruction technique. COMPARISON: None available for comparison FINDINGS: Brain: No significant white matter changes. No focal mass effect. Donald-white matter differ entiation is within normal limits. No hemorrhage. Ventricles: No ventriculomegaly or midline shift. Extra-axial spaces: No extra-axial collection or hemorrhage. Paranasal sinuses and mastoid air cells: Well-aerated Vessels: Unremarkable Bones: Unremarkable Soft tissues: Unremarkable IMPRESSION: No acute hemorrhage, focal mass or large territory infarction. Electronically signed by: Jim Brian MD 06/01/2020 10:02 PM FOUNDING PARTNER Due to temporary technical issues with the PACS/Fluency reporting system, reports are being signed by the in house radiologist without review as a courtesy to ensure prompt reporting. The interpreting r adiologist is fully responsible for the content of the report.
--- NOTE | 2020-06-02 17:09 | EKG ---
Test Date: 2020-06-01 Test Time: 22:04:26 Claims Adjuster Crop: MEASUREMENT RESULTS: Intervals: Rate: 78 CT: 148 QRSD: 78 QT: 358 QTc: 408 [place]: P: 38 CT: 148 QRS: 61 T: 61 INTERPRETIVE STATEMENTS: Normal sinus rhythm Normal ECG No previous ECG available for comparison Electronically Signed On 06-02-20 17:06:13 CS ASSOCIATE by Ildefonso Stewart
== END 2020-06-01 23:48 | disposition home or self-care (01) ==
LOC: ER 21:18
DX: R20.2 Paresthesia of skin (principal); Z88.5 Allergy status to narcotic agent; Z91.013 Allergy to seafood; Z91.040 Latex allergy status; Z91.048 Other nonmedicinal substance allergy status
CPT/HCPCS: 36415; 70450; 71045; 80048; 80307; 81003; 81025; 82746; 82947; 83690; 83735; 84484; 85025; 85610; 85730; 93005; 99284

== ENCOUNTER 2020-07-18 17:40 | Emergency (ER) | payer SELFPAY ==
--- OUTSIDE RECORDS SUMMARY | 2020-07-18 17:42 | XMS REPORT | Continuity of Care Document ---
:1980 Author Organization [facility] t Address [address] [place] [address] Care Team Providers Name Role Phone Unavailable Unavailable Unavailable Problems Condition Condition Condition Status Onset Resolution Last Treating Co mments Source Name Details Category Date Date Treatment Clinician Date Sinus Sinus Problem Active [facility] Other Other Problem Active [facility] chronic chronic [facility] Kidney Kidney Problem Active [facility] stones stones [facility] GERD GERD Problem Active [facility] (gastroeso (gastroeso Evy kes - phageal phageal Memoria reflux reflux l disease) disease) Outpat i ent Clinics Diverticul Diverticul Problem Active [facility] itis itis [facility] Anxiety Anxiety Problem [facility] Low back Low back Problem [facility] Fibromyalg Fibromyalg Problem Active [facility] ia ia [facility]ics Depression Depression Problem [facility] Neck pain Neck pain Problem Active [facility] Oral Oral Problem Active [facility] contracept contracept Evy kes - freddie freddie [facility] prescribed prescribed l [facility] Clinics Multiple Multiple Problem [facility] allergies allergies [facility] - [facility] Positive Positive Diagnosis Active [facility] urine urine [facility] Zhao quin test test l [facility]ics Family Family Problem Active [facility] planning planning [facility] Seasonal Seasonal Problem Active [facility] allergic allergic [facility] - rhinitis rhinitis [facility] a l [facility] ent Clinics Allergies, Adverse Reactions, Alerts Allergy Allergy Status Severity Reaction(s) Onset Inactive Treating Comm ents Source Name Type Date Date Clinician Garlic Adverse Active Info Not [facility] Reaction Available [facility] ent [facility] Mustard Adverse Active Info Not [facility] Reaction Available [facility] ent [facility] Onions Adverse Active Info Not [facility] Reaction Available [facility] ent [facility] Medications Ordered Filled Start Stop Current Ordering Indication Dosage Frequency Signature Comments Components Source Medication Medication Date Date Medication? Clinician (SIG) Name Name Yes Ira [address] [facility] 07-21 [facility] - 00:00: [facility] 00 [facility] ent [facility] Metronidazo Metronidazo 2019- No Ira [address] [facility] le le 07-21 Millender applicatio Estella es - 00:00: 00:00 n to Memoria 00 :00 affected [facility] ent Clinics Ketoconazol Ketoconazol 2019- No Ira [address] [facility] [facility] e e 07-21 Millender applicatio Estella es [facility] Procedures This patient has no known procedures. Encounters Start End Encounter Admission Attending Care Care Encounter Source Date/Time Date/Time Type Type Clinicians Facility Department ID 2018-07-27 2018-07-27 [facility] [id number] 08:20:00 08:20:00 [facility] Medicine [facility] ent [facility] Results This patient has no known results.
--- NOTE | 2020-07-18 18:37 | RAD REPORT ---
EXAM DESCRIPTION: US - Extremity Venous Uni Ltd - 07/18/2020 6:19 pm CLINICAL HISTORY: PAIN COMPARISON: None. TECHNIQUE: Real-time sonographic evaluation of the left lower extremity deep venous system was perfo rmed. FINDINGS: Normal compressibility, flow augmentation, phasic flow and spontaneous flow are identified in the left lower extremity common femoral, superficial femoral, popliteal and posterior tibial vein s. No intraluminal filling defects seen. IMPRESSION: No DVT in the left lower extremity.
--- NOTE | 2020-07-18 18:38 | RAD REPORT ---
EXAM DESCRIPTION: RAD - Chest Single View - 07/18/2020 6:33 pm CLINICAL HISTORY: PALPITATIONS COMPARISON: Portable June 01 TECHNIQUE: AP portable chest image was obtained 07/18/2020 6:33 pm . FINDINGS: Lungs are clear. Heart and vasculature are normal. No measurable pleural effusion and no p neumothorax. No acute bony abnormality seen. No acute aortic findings suspected. IMPRESSION: No acute cardiopulmonary process. No significant change from comparison study.
[2020-07-18 18:46] LABS: Barbiturates NEGATIVE (NEGATIVE); Benzodiazepines NEGATIVE (NEGATIVE); Cocaine NEGATIVE (NEGATIVE); METHAMPHETAM NEGATIVE (NEGATIVE); Methadone NEGATIVE (NEGATIVE); Opiates NEGATIVE (NEGATIVE); Phencyclidine NEGATIVE (NEGATIVE); THC Cannibis NEGATIVE (NEGATIVE)
[2020-07-18 18:48] LABS: Absolute Lymphocytes (CBC) 1.8 K/uL (0.7-4.9); Basophils % 0.3 % (0-1.3); Hematocrit 37.7 % (36.0-45.0); Lymphocytes % 12.8 % (15.3-44.8); MPV 7.5 fL (7.6-11.3); RBC Red Blood Cell Count 4.34 M/uL (3.86-4.86)
[2020-07-18] MEDS ORDERED: LORazepam 2 MG/ML VIAL ONE (19:02)
[2020-07-18 19:10] LABS: ALT/SGPT 17 U/L (12-78); AST/SGOT 6 U/L (15-37); Albumin 3.7 g/dL (3.4-5.0); Alkaline Phosphatase 57 U/L (45-117); BUN Blood Urea Nitrogen 12 mg/dL (7-18); Bicarbonate 23 mmol/L (21-32); Bilirubin Direct < 0.1 mg/dL (0-0.2); Bilirubin Total 0.3 mg/dL (0.2-1.0); Glucose Level 86 mg/dL (74-106); Magnesium 2.2 mg/dL (1.8-2.4); NT PRO-BNP 81 pg/mL (<125); Potassium 3.9 mmol/L (3.5-5.1); Protein, Total 7.7 g/dL (6.4-8.2); Sodium Level 139 mmol/L (136-145); Troponin (Emerg Dept Use Only) < 0.02 ng/mL (0.0-0.045)
[2020-07-18] MEDS ORDERED: DIPHENHYDRAMINE 50 MG/ML VIAL ONE (20:36)
[2020-07-18] MEDS ORDERED: METHYLPREDNISOLONE 125 MG INJ ONE (20:36)
--- NOTE | 2020-07-18 20:53 | RAD REPORT ---
EXAM DESCRIPTION: CT - Chest For Pe Angio - 07/18/2020 8:36 pm CLINICAL HISTORY: PALPITATIONS COMPARISON: Chest Single View dated 07/18/2020 TECHNIQUE: Dynamically enhanced 3 mm thick images of the chest were obtained during administration o f approximately 150mL Isovue 370 IV contrast. Coronal and oblique MIP reconstruction images were gene rated and reviewed. Exam utilizes a protocol to evaluate the pulmonary arterial tree. All CT scans are performed using dose optimization technique as appropriate and may include automated exposure control or mA/KV adjustment according to patient size. FINDINGS: No pulmonary emboli are identified. The aorta as imaged shows no acute or suspicious finding. No pericardial thickening or effusion. No infiltrate or mass in the lung parenchyma. No pleural effusion or pleural thickening. No mediastinal or hilar suspicious masses. No chest wall masses or abnormal axillary lymphadenopathy. IMPRESSION: No pulmonary emboli identified. No other significant or suspicious findings.
--- NOTE | 2020-07-18 21:11 | EDPHYS ---
Physician Documentation [facility] Name: Vanessa Da Silva Age: 39 yrs Sex: Female : 1980 Arrival Date: 07/18/2020 Time: 17:45 Bed 24 Private MD: ED Physician Kenyon Bonilla HPI: 07/18 18:00 This 39 yrs old Female presents to ER via EMS with complaints of Palpitations.cp 18:00 The patient presents with a history of heart racing. Context: The symptoms occur while cp cooking dinner tonight. Onset: The symptoms/episode began/occurred just prior to arrival. Duration: The patient or guardian reports a single episode, that is still ongoing. Associated signs and symptoms: Pertinent positives: anxiety, Pertinent negatives: chest pain. 18:00 Patient reports history of anxiety in the past and reports increased stress at home. 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 - Social history:: Smoking status: Patient denies any tobacco usage or history of. ROS: 18:05 Constitutional: Negative for body aches, chills, fever, poor PO intake. cp 18:05 Eyes: Negative for injury, pain, redness, and discharge. cp 18:05 Cardiovascular: Positive for palpitations, Negative for chest pain, edema. 18:05 Respiratory: Negative for cough, shortness of breath, wheezing. 18:05 Neuro: Negative for altered mental status, dizziness, headache, syncope, weakness. 18:05 Psych: Positive for anxiety. Exam: 18:05 ECG was reviewed by the Attending Physician. cp 18:10 Constitutional: The patient appears in no acute distress, alert, awake, cp non-diaphoretic, non-toxic, well developed, well nourished. 18:10 Head/Face: Normocephalic, atraumatic. cp 18:10 Eyes: Periorbital structures: appear normal, Conjunctiva: normal, no exudate, no injection, Sclera: no appreciated abnormality, Lids and lashes: appear normal, bilaterally. 18:10 ENT: External ear(s): are unremarkable, Nose: is normal, Mouth: Lips: moist, Oral mucosa: moist, Posterior pharynx: Airway: no evidence of obstruction, patent. 18:10 Neck: ROM/movement: is normal, is supple, without pain, no range of motions limitations. 18:10 Chest/axilla: Inspection: normal, Palpation: is normal, no crepitus, no tenderness. 18:10 Cardiovascular: Rate: normal, Rhythm: regular, Heart sounds: murmur, not appreciated, Edema: is not appreciated, JVD: is not appreciated. 18:10 Respiratory: the patient does not display signs of respiratory distress, Respirations: normal, no use of accessory muscles, no retractions, labored breathing, is not present, Breath sounds: are clear throughout, no decreased breath sounds. 18:10 Abdomen/GI: Exam negative for discomfort, distension, guarding, Inspection: abdomen appears normal. 18:10 Back: pain, is absent, ROM is normal. 18:10 Musculoskeletal/extremity: DVT Exam: tenderness, that is mild, of the left leg. 18:10 Neuro: Orientation: to person, place \T\ time. Mentation: is normal, Cerebellar function: is grossly normal, Motor: moves all fours, strength is normal, Sensation: is normal. Vital Signs: 17:45 BP 119 / 74; Pulse 89; Resp 17; Temp 98.6; Pulse Ox 100% ; Weight 90.26 kg; Height 5 zb ft. 1 in. (154.94 cm); Pain 0/10; 18:30 BP 105 / 69; Pulse 90; Resp 16; Pulse Ox 100% on R/A; zb 19:55 BP 118 / 76; Pulse 91; Resp 16; Pulse Ox 100% on R/A; zb 21:20 BP 117 / 74; Pulse 88; Resp 16; Pulse Ox 98% on R/A; zb 17:45 Body Mass Index 37.60 (90.26 kg, 154.94 cm) zb MDM: 17:55 Patient medically screened. 21:02 ED course: no results found concerning prescriptions for controlled meds on inquiry of [facility] prescription monitor website. 21:10 Data reviewed: vital signs, nurses notes, lab test result(s), EKG, radiologic studies, cp CT scan, plain films. 21:10 Differential diagnosis: arrythmia, dehydration, stress disorder, anxiety, pulmonary cp embolism. Test interpretation: by ED physician or midlevel provider: ECG, plain radiologic studies. Counseling: I had a detailed discussion with the patient and/or guardian regarding: the historical points, exam findings, and any diagnostic results supporting the discharge/admit diagnosis, lab results, radiology results, the need for outpatient follow up, a family practitioner, to return to the emergency department if symptoms worsen or persist or if there are any questions or concerns that arise at home. Response to treatment: the patient's symptoms have markedly improved after treatment, and as a result, I will discharge patient. 07/18 17:51 Order name: Basic Metabolic Panel; Complete Time: 19:40 cp 07/18 19:40 Interpretation: Normal except: GFR 86. cp 07/18 17:51 Order name: CBC with Diff; Complete Time: 19:40 cp 07/18 19:40 Interpretation: Normal except: WBC 14.40; MPV 7.5; ILANA% 81.8; LYM% 12.8; NEUT A 11.8. cp 07/18 17:51 Order name: LFT's; Complete Time: 19:40 cp 07/18 17:51 Order name: Magnesium; Complete Time: 19:40 cp 07/18 17:51 Order name: NT PRO-BNP; Complete Time: 19:40 cp 07/18 17:51 Order name: PT-INR; Complete Time: 20:58 cp 07/18 17:51 Order name: Troponin (emerg Dept Use Only); Complete Time: 19:40 cp 07/18 17:51 Order name: XRAY Chest (1 view); Complete Time: 19:40 cp 16 17:51 Order name: D-Dimer; Complete Time: 20:58 cp 16 17:51 Order name: US Extremity Venous Unilateral Ltd; Complete Time: 19:40 cp 16 17:51 Order name: UDS; Complete Time: 19:40 cp 16 18:28 Order name: Urine --Ancillary (enter results); Complete Time: 19:40 tt3 07/18 19:41 Order name: CT Chest For PE Angio; Complete Time: 20:58 cp 07/18 20:58 Interpretation: Report reviewed. cp 07/18 17:51 Order name: EKG; Complete Time: 17:52 cp 07/18 17:51 Order name: Cardiac monitoring; Complete Time: 17:58 cp 07/18 17:51 Order name: EKG - Nurse/Tech; Complete Time: 17:58 cp 07/18 17:51 Order name: IV Saline Lock; Complete Time: 18:52 cp 07/18 17:51 Order name: Labs collected and sent; Complete Time: 18:52 cp 07/18 17:51 Order name: O2 Per Protocol; Complete Time: 17:58 cp 07/18 17:51 Order name: O2 Sat Monitoring; Complete Time: 17:58 cp 07/18 17:51 Order name: Urine Test (obtain specimen); Complete Time: 18:52 cp 07/18 17:51 Order name: Urine Dipstick-Ancillary (obtain specimen); Complete Time: 18:52 cp EC:05 Rate is 85 beats/min. Rhythm is regular. AK interval is normal. QRS interval is normal. cp QT interval is normal. T waves are Inverted in lead aVR. Interpreted by me. Reviewed by me. Administered Medications: 18:51 Drug: Ativan (LORazepam) 0.5 mg {Note: patient given .25 of ativan notified ECP okay to zb given this way per patient request .} Route: IVP; Site: left antecubital; 19:20 Follow up: Response: No adverse reaction; Anxiety decreased zb 20:24 Drug: SOLU-Medrol (methylPrednisoLONE) 125 mg Route: IVP; Site: left antecubital; zb 20:47 Follow up: Response: No adverse reaction; Marked relief of symptoms zb 20:24 Drug: Benadryl (diphenhydrAMINE) 25 mg Route: IVP; Site: left antecubital; zb 20:47 Follow up: Response: No adverse reaction; Marked relief of symptoms zb Disposition: 07/18/20 21:11 Discharged to Home. Impression: Anxiety disorder, unspecified. - Condition is Stable. - Discharge Instructions: Generalized Anxiety Disorder. - Prescriptions for Ativan 0.5 mg Oral Tablet - take 0.5 tablet by ORAL route every 12 hours As needed may take up to 1 tablet as needed for anxiety; 20 tablet. - Medication Reconciliation Form, Thank You Letter, Antibiotic Education, Prescription Opioid Use form. - Follow up: Private Physician; When: 2 - 3 days; Reason: Recheck today's complaints. - Problem is new. - Symptoms have improved. Addendum: 07/23/2020 10:09 Co-signature as Attending Physician, Kenyon Bonilla MD I agree with the assessment and t w4 plan of care. Signatures: Dispatcher [employer] EDMS Homero Marcus PA PA Kenyon Carlin MD MD tw4 Cyndy Loo RN RN zb Corrections: (The following items were deleted from the chart) 07/18 21:21 21:11 07/18/2020 21:11 Discharged to Home. Impression: Anxiety disorder, unspecified. zb Condition is Stable. Forms are Medication Reconciliation Form, Thank You Letter, Antibiotic Education, Prescription Opioid Use. Follow up: Private Physician; When: 2 - 3 days; Reason: Recheck today's complaints. Problem is new. Symptoms have improved. cp
--- NOTE | 2020-07-18 21:11 | ER ---
Nurse's Notes [facility] Name: Vanessa Da Silva Age: 39 yrs Sex: Female : 1980 Arrival Date: 07/18/2020 Time: 17:45 Bed 24 Private MD: Diagnosis: Anxiety disorder, unspecified Presentation: 07/18 17:45 Chief complaint: EMS states: patient started experiencing heart palpations. palpation zb were not relieved by deep breathing. Coronavirus screen: At this time, the client does not indicate any symptoms associated with coronavirus-19. Ebola Screen: No symptoms or risks identified at this time. Initial Sepsis Screen: Does the patient meet any 2 criteria? No. Patient's initial sepsis screen is negative. Does the patient have a suspected source of infection? No. Patient's initial sepsis screen is negative. Risk Assessment: Do you want to hurt yourself or someone else? Patient reports no desire to harm self or others. Onset of symptoms was July 18, 2020. 17:45 Method Of Arrival: EMS: [facility] zb 17:45 Acuity: DEV 3 zb Triage Assessment: 17:52 General: Appears in no apparent distress. Behavior is calm, cooperative, appropriate zb for age. Pain: Denies pain. Neuro: Level of Consciousness is awake, alert, obeys commands, Oriented to person, place, time, situation. Cardiovascular: Reports palpitations, Heart tones S1 S2 present Capillary refill < 3 seconds in bilateral fingers. Respiratory: Airway is patent Respiratory effort is even, unlabored, Respiratory pattern is regular, symmetrical. GI: No deficits noted. Derm: Skin is intact, is healthy with good turgor, Skin is dry, Skin is pink, warm \T\ dry. Musculoskeletal: Circulation, motion, and sensation intact. Range of motion: intact in all extremities. 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 - Social history:: Smoking status: Patient denies any tobacco usage or history of. Screenin:54 Abuse screen: Denies threats or abuse. Denies injuries from another. Nutritional zb screening: No deficits noted. Tuberculosis screening: No symptoms or risk factors identified. Fall Risk None identified. Assessment: 17:53 Reassessment: see triage note. zb 18:28 Reassessment: x-ray at bedside. zb 19:55 Reassessment: Patient appears in no apparent distress at this time. Patient and/or zb family updated on plan of care and expected duration. Pain level reassessed. Patient is alert, oriented x 3, equal unlabored respirations, skin warm/dry/pink. patient states that she feels relaxed. Patient denies pain at this time. Patient states symptoms have improved. 20:07 Reassessment: ECP at bedside. zb 20:35 Reassessment: patient went to CT. zb 21:04 Reassessment: ecp at bedside explain results. zb 21:19 Reassessment: Patient appears in no apparent distress at this time. Patient and/or zb family updated on plan of care and expected duration. Pain level reassessed. Patient is alert, oriented x 3, equal unlabored respirations, skin warm/dry/pink. d/c instructions given patient up at [place]. gait even and steady upon d/c. Vital Signs: 17:45 BP 119 / 74; Pulse 89; Resp 17; Temp 98.6; Pulse Ox 100% ; Weight 90.26 kg; Height 5 zb ft. 1 in. (154.94 cm); Pain 0/10; 18:30 BP 105 / 69; Pulse 90; Resp 16; Pulse Ox 100% on R/A; zb 19:55 BP 118 / 76; Pulse 91; Resp 16; Pulse Ox 100% on R/A; zb 21:20 BP 117 / 74; Pulse 88; Resp 16; Pulse Ox 98% on R/A; zb 17:45 Body Mass Index 37.60 (90.26 kg, 154.94 cm) ED Course: 17:45 Patient arrived in ED. zb 17:48 Anil Leavitt PA is PHCP. [facility] 17:48 Kenyon Bonilla MD is Attending Physician. [facility] 17:48 Triage completed. zb 17:49 PHCP role handed off by Anil Leavitt PA cp 17:49 Homero Marcus PA is PHCP. cp 17:54 Patient has correct armband on for positive identification. engine monitor on. Pulse zb ox on. NIBP on. Door closed. Noise minimized. 17:54 Arm band placed on. zb 17:55 Bed in low position. Call light in reach. Side rails up X 1. zb 17:56 Cyndy Loo, RN is Primary Nurse. zb 17:56 EKG done, by robotics technician. zb 18:10 Inserted saline lock: 20 gauge in left antecubital area, using aseptic technique. Blood zb collected. 18:19 US Extremity Venous Unilateral Ltd In Process Unspecified. EDMS 18:31 XRAY Chest (1 view) In Process Unspecified. EDMS 20:36 CT Chest For PE Angio In Process Unspecified. EDMS 21:20 No provider procedures requiring assistance completed. IV discontinued, intact, zb bleeding controlled, No redness/swelling at site. Pressure dressing applied. Administered Medications: 18:51 Drug: Ativan (LORazepam) 0.5 mg {Note: patient given .25 of ativan notified ECP okay to zb given this way per patient request .} Route: IVP; Site: left antecubital; 19:20 Follow up: Response: No adverse reaction; Anxiety decreased zb 20:24 Drug: SOLU-Medrol (methylPrednisoLONE) 125 mg Route: IVP; Site: left antecubital; zb 20:47 Follow up: Response: No adverse reaction; Marked relief of symptoms zb 20:24 Drug: Benadryl (diphenhydrAMINE) 25 mg Route: IVP; Site: left antecubital; zb 20:47 Follow up: Response: No adverse reaction; Marked relief of symptoms zb Outcome: 21:11 Discharge ordered by . cp 21:20 Discharged to home ambulatory. zb 21:20 Condition: stable 21:20 Discharge instructions given to patient, Instructed on discharge instructions, follow up and referral plans. medication usage, Demonstrated understanding of instructions, follow-up care, medications, Prescriptions given X 1. 21:21 Patient left the ED. zb Signatures: Dispatcher [employer] EDMS Anil Leavitt PA PA jmm Page, Corey, PA PA cp Brown, Zipporah, RN RN zb
[2020-07-18 21:29] VITALS: TEMP 98.6
[2020-07-18 21:32] VITALS: BP 117/74; O2SAT 98
[2020-07-23 16:23] LABS: Urine Blood NEGATIVE (Negative); Urine Glucose NEGATIVE (Negative); Urine Protein NEGATIVE (Negative)
== END 2020-07-18 21:21 | disposition home or self-care (01) ==
LOC: ER 17:40
DX: F41.9 Anxiety disorder, unspecified (principal); Z88.5 Allergy status to narcotic agent; Z91.013 Allergy to seafood; Z91.040 Latex allergy status; Z91.048 Other nonmedicinal substance allergy status
CPT/HCPCS: 36415; 71045; 71275; 80048; 80076; 80307; 81003; 81025; 83735; 83880; 84484; 85025; 85379; 85610; 93005; 93971; 96374; 96375; 99285; J1200; J2930; Q9967

== ENCOUNTER 2020-12-13 20:13 | Emergency (ER) | payer SELFPAY ==
--- OUTSIDE RECORDS SUMMARY | 2020-12-13 20:17 | XMS REPORT | Continuity of Care Document ---
:1980 Author Organization [facility] t Address [address] [place] [address] Care Team Providers Name Role Phone Unavailable Unavailable Unavailable Problems Condition Condition Condition Status Onset Resolution Last Treating Co mments Source Name Details Category Date Date Treatment Clinician Date Sinus Sinus Problem Active [facility] Other Other Problem Active [facility] chronic chronic [facility] Kidney Kidney Problem Active [facility] stones stones [facility] GERD GERD Problem Active [facility] (gastroeso (gastroeso Evy kes - phageal phageal Memoria reflux reflux l disease) disease) [facility] ent Clinics Diverticul Diverticul Problem Active [facility] Anxiety Anxiety Problem [facility] Low back Low back Problem [facility] Fibromyalg Fibromyalg Problem Active [facility] Depression Depression Problem [facility] Neck pain Neck pain Problem [facility] Oral Oral Problem Active [facility] contracept contracept Evy kes - freddie freddie [facility] prescribed prescribed [facility] Multiple Multiple Problem [facility] allergies allergies [facility]ics Positive Positive Diagnosis Active [facility] urine urine [facility] quin test test [facility] Family Family Problem Active [facility] planning planning [facility] Seasonal Seasonal Problem [facility] allergic allergic [facility] rhinitis rhinitis [facility] Allergies, Adverse Reactions, Alerts Allergy Allergy Status Severity Reaction(s) Onset Inactive Treating Comm ents Source Name Type Date Date Clinician Garlic Adverse Active Info Not [facility] Reaction Available [facility] Mustard Adverse Active Info Not [facility] Reaction Available [facility] Onions Adverse Active Info Not [facility] Reaction Available [facility] Medications Ordered Filled Start Stop Current Ordering Indication Dosage Frequency Signature Comments Components Source Medication Medication Date Date Medication? Clinician (SIG) Name Name Yes Ira [address] [facility] 07-21 [facility] - 00:00: [facility] 00 [facility] Metronidazo Metronidazo 2019- No Ira [address] [facility] le le 07-21 Millender applicatio Estella es - 00:00: 00:00 n to Memoria 00 :00 affected [facility] Clinics Ketoconazol Ketoconazol 2019- No Ria [address] [facility] e e 07-21 Millender applicatio Estella es [facility]:00[facility] Procedures This patient has no known procedures. Encounters Start End Encounter Admission Attending Care Care Encounter Source Date/Time Date/Time Type Type Clinicians Facility Department ID 2018-07-27 2018-07-27 [facility] [id number] [facility] 08:20:00 08:20:00 [facility] Results This patient has no known results.
[2020-12-13 21:09] LABS: Absolute Lymphocytes (CBC) 2.8 K/uL (0.7-4.9); Basophils % 0.9 % (0-1.3); Hematocrit 37.8 % (36.0-45.0); Lymphocytes % 25.9 % (15.3-44.8); MPV 7.4 fL (7.6-11.3); RBC Red Blood Cell Count 4.33 M/uL (3.86-4.86)
[2020-12-13 21:13] LABS: Urine Blood Trace-intact (Negative); Urine Glucose Negative (Negative); Urine Protein Negative (Negative); Urine pH 6.5 (5.0-7.0)
[2020-12-13 21:21] LABS: ALT/SGPT 15 U/L (12-78); AST/SGOT 7 U/L (15-37); Albumin 3.7 g/dL (3.4-5.0); Alkaline Phosphatase 56 U/L (45-117); BUN Blood Urea Nitrogen 10 mg/dL (7-18); Bicarbonate 23 mmol/L (21-32); Bilirubin Direct < 0.1 mg/dL (0-0.2); Bilirubin Total 0.3 mg/dL (0.2-1.0); Glucose Level 97 mg/dL (74-106); Lipase 131 U/L (73-393); Potassium 3.7 mmol/L (3.5-5.1); Sodium Level 140 mmol/L (136-145)
--- NOTE | 2020-12-13 22:04 | RAD REPORT ---
EXAM DESCRIPTION: US - Extremity Venous Uni Ltd - 12/13/2020 9:32 pm CLINICAL HISTORY: Knee pain COMPARISON: None. TECHNIQUE: Real-time sonographic evaluation of the right lower extremity deep venous system was perf ormed. FINDINGS: Normal compressibility, flow augmentation, phasic flow and spontaneous flow is identified in the right lower extremity deep venous system. No intraluminal filling defects seen. IMPRESSION: No DVT in the right lower extremity.
--- NOTE | 2020-12-13 22:22 | ER ---
Nurse's Notes [facility] Name: Vanessa Da Silva Age: 40 yrs Sex: Female : 1980 Arrival Date: 12/13/2020 Time: 20:16 Bed 26 Private MD: Diagnosis: Pain in right knee Presentation: 12/13 20:21 Chief complaint: Patient states: For about a week pt has had Right knee pain that vg1 radiates up to RLQ. States these symptoms began after second dose of Pfizer on 12/02/20. Pt also c/o NVD. Coronavirus screen: Vaccine status: Patient reports receiving the 2nd dose of the covid vaccine. Client denies travel out of the [place] in the last 14 days. Ebola Screen: Patient negative for fever greater than or equal to 101.5 degrees Fahrenheit, and additional compatible Ebola Virus Disease symptoms. Initial Sepsis Screen: Does the patient meet any 2 criteria? No. Patient's initial sepsis screen is negative. Does the patient have a suspected source of infection? No. Patient's initial sepsis screen is negative. Risk Assessment: Do you want to hurt yourself or someone else? Patient reports no desire to harm self or others. Onset of symptoms was December 02, 2020. 20:21 Method Of Arrival: Ambulatory vg1 20:21 Acuity: DEV 3 vg1 Triage Assessment: 20:23 General: Appears in no apparent distress. uncomfortable, Behavior is calm, cooperative. vg1 Pain: Complains of pain in Right knee and RLQ. GI: Abdomen is round non-distended. 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 - Social history:: Smoking status: Patient denies any tobacco usage or history of. Screenin:47 Abuse screen: Denies threats or abuse. Nutritional screening: No deficits noted. lh3 Tuberculosis screening: Tuberculosis screening: No symptoms or risk factors identified. Fall Risk IV access (20 points). Total Rey Fall Scale indicates No Risk (0-24 pts). Assessment: 20:28 Reassessment: Kiko phone number [phone]. vg1 20:47 General: Appears in no apparent distress. Behavior is calm, cooperative, appropriate lh3 for age. GI: Bowel sounds present X 4 quads. Abd is soft and non tender X 4 quads. Vital Signs: 20:21 BP 121 / 81; Pulse 90; Resp 16; Temp 98.9; Pulse Ox 100% ; Weight 92.53 kg; Height 5 vg1 ft. 1 in. (154.94 cm); Pain 7/10; 20:47 BP 105 / 83; Pulse 18; Resp 89; Pulse Ox 99% on R/A; lh3 20:21 Body Mass Index 38.55 (92.53 kg, 154.94 cm) vg1 ED Course: 20:16 Patient arrived in ED. cf2 20:23 Triage completed. vg1 20:23 Arm band placed on. vg1 20:32 Renetta Suarez, RN is Primary Nurse. lh3 20:35 eKnyon Bonilla MD is Attending Physician. tw4 20:47 Patient has correct armband on for positive identification. Bed in low position. Call lh3 light in reach. Side rails up X 1. Side rails up X2. Door closed. Warm blanket given. Head of bed elevated. 20:47 No provider procedures requiring assistance completed. Inserted saline lock: 20 gauge lh3 in right antecubital area, using aseptic technique. 20:50 Lipase Sent. lh3 20:50 Hepatic Function Sent. lh3 20:50 CBC with Diff Sent. lh3 20:50 Basic Metabolic Panel Sent. lh3 20:50 Basic Metabolic Panel Sent. lh3 20:55 Homero Marcus PA is PHCP. cp 20:55 Ernesto Zurita MD is Attending Physician. cp 20:56 Kenyon Bonilla MD is Attending Physician. cp 21:22 Urine Dipstick-Ancillary Sent. lh3 21:22 Urine --Ancillary Sent. lh3 21:31 US Extremity Venous Unilateral Ltd In Process Unspecified. EDMS 22:21 Hesham Escobar MD is Referral Physician. cp 22:46 XRAY Knee RIGHT 3 view In Process Unspecified. EDMS 22:54 IV discontinued, bleeding controlled. lh3 Administered Medications: No medications were administered Outcome: 22:21 Discharge ordered by MD. cp 22:54 Discharged to home ambulatory. lh3 22:54 Condition: good 22:54 Discharge instructions given to patient, Instructed on discharge instructions, follow up and referral plans. Demonstrated understanding of instructions, follow-up care. 22:55 Patient left the ED. 3 Signatures: Dispatcher [employer] EDMS Homero Marcus PA PA Kenyon Carlin MD MD tw4 Dione Yates cf2 Sharita Martinez, RN RN vg1 Renetta Suarez, RN RN lh3 Corrections: (The following items were deleted from the chart) 21:39 21:36 BP 156 / 89; 3 lh3
--- NOTE | 2020-12-13 22:22 | EDPHYS ---
Physician Documentation [facility] Name: Vanessa Da Silva Age: 40 yrs Sex: Female : 1980 Arrival Date: 12/13/2020 Time: 20:16 Bed 26 Private MD: ED Physician Kenyon Bonilla HPI: 12/13 21:00 This 40 yrs old Female presents to ER via Ambulatory with complaints of Knee cp Pain, Pelvic Pain, Abdominal Pain. 21:00 The patient presents with pain. cp 21:00 The complaints affect the right groin, medial aspect of right thigh and medial aspect cp of right knee. Context: resulted from an unknown cause, the patient can fully bear weight, the patient is able to ambulate, with mild difficulty, Problem is a result from a previous injury: No. 21:00 Onset: The symptoms/episode began/occurred 1 week(s) ago. cp 21:00 Patient concerned about possible DVT and reports pain started after receiving COVID-19 cp vaccination. Patient denies injury. 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 - Social history:: Smoking status: Patient denies any tobacco usage or history of. ROS: 21:05 Constitutional: Negative for body aches, chills, fever, poor PO intake. cp 21:05 Cardiovascular: Negative for chest pain. 21:05 Respiratory: Negative for cough, shortness of breath, wheezing. 21:05 MS/extremity: Positive for pain, swelling, tenderness, of the medial aspect right knee, Negative for injury or acute deformity, decreased range of motion, paresthesias. 21:05 Skin: Negative for cellulitis, rash. 21:05 All other systems are negative. Exam: 21:10 Constitutional: The patient appears in no acute distress, alert, awake, non-toxic, well cp developed, well nourished. 21:10 Head/Face: Normocephalic, atraumatic. cp 21:10 Chest/axilla: Inspection: normal. 21:10 Cardiovascular: Rate: normal. 21:10 Respiratory: the patient does not display signs of respiratory distress, Respirations: normal, no use of accessory muscles, no retractions. 21:10 Abdomen/GI: Inspection: abdomen appears normal, Bowel sounds: active, all quadrants, Palpation: abdomen is soft and non-tender, in all quadrants, involuntary guarding, is not appreciated. 21:10 Back: pain, is absent, ROM is normal. 21:10 Musculoskeletal/extremity: Extremities: grossly normal except: noted in the medial aspect right knee: pain, swelling, tenderness, ROM: full passive range of motion, in the right knee, Perfusion: the extremity is normally perfused throughout, Sensation intact. 21:10 Skin: cellulitis, is not appreciated, no rash present. Vital Signs: 20:21 BP 121 / 81; Pulse 90; Resp 16; Temp 98.9; Pulse Ox 100% ; Weight 92.53 kg; Height 5 vg1 ft. 1 in. (154.94 cm); Pain 7/10; 20:47 BP 105 / 83; Pulse 18; Resp 89; Pulse Ox 99% on R/A; lh3 20:21 Body Mass Index 38.55 (92.53 kg, 154.94 cm) vg1 MDM: 20:35 Patient medically screened. tw4 21:10 Differential diagnosis: tendonitis, sprain, DVT, cellulitis. cp 21:30 ED course: US tech reports exam negative for DVT of right leg. cp 22:15 Test interpretation: by ED physician or midlevel provider: xrays of right knee negative cp for acute findings. 22:20 Data reviewed: vital signs, nurses notes, lab test result(s), radiologic studies, plain cp films, ultrasound. 22:20 Counseling: I had a detailed discussion with the patient and/or guardian regarding: the cp historical points, exam findings, and any diagnostic results supporting the discharge/admit diagnosis, lab results, radiology results, to return to the emergency department if symptoms worsen or persist or if there are any questions or concerns that arise at home. 22:20 Response to treatment: the patient's symptoms have mildly improved after treatment, and cp as a result, I will discharge patient. 12/13 20:48 Order name: Basic Metabolic Panel [facility] 12/13 20:48 Order name: CBC with Diff; Complete Time: 21:29 [facility] 12/13 21:29 Interpretation: Normal except: WBC 11.00; PLT 416. 12/13 20:48 Order name: Hepatic Function; Complete Time: 21:29 [facility] 12/13 21:30 Interpretation: Normal except: AST 7; GLOB 4.3; A/G 0.9. 12/13 20:48 Order name: Lipase; Complete Time: 21:29 [facility] 12/13 20:49 Order name: Basic Metabolic Panel; Complete Time: 21:29 [facility] 12/13 21:13 Order name: Urine Dipstick-Ancillary [facility] 12/13 20:48 Order name: IV Saline Lock; Complete Time: 20:50 [facility] 12/13 20:48 Order name: Labs collected and sent; Complete Time: 20:50 [facility] 12/13 21:00 Order name: US Extremity Venous Unilateral Ltd cp 12/13 21:00 Order name: Urine Dipstick-Ancillary (obtain specimen); Complete Time: 21:22 12/13 21:00 Order name: XRAY Knee RIGHT 3 view cp 12/13 21:15 Order name: Urine --Ancillary (enter results) tt3 12/13 21:15 Order name: Urine --Ancillary; Complete Time: 21:29 [facility] 12/13 21:00 Order name: Urine Test (obtain specimen); Complete Time: 21:22 cp Administered Medications: No medications were administered Disposition: 22:30 Chart complete. cp Disposition Summary: 12/13/20 22:21 Discharge Ordered Location: Home cp Problem: new cp Symptoms: have improved cp Condition: Stable cp Diagnosis - Pain in right knee cp Followup: cp - With: Hesham Escobar MD - When: 2 - 3 days - Reason: Worsening of condition Discharge Instructions: - Discharge Summary Sheet cp - Elastic Bandage and RICE Therapy cp - How to Use a Knee Brace cp - Acute Knee Pain, Adult cp Forms: - Medication Reconciliation Form cp - Thank You Letter cp - Antibiotic Education cp - Prescription Opioid Use cp Addendum: 12/15/2020 06:48 Co-signature as Attending Physician, Kenyon Bonilla MD I agree with the assessment and t w4 plan of care. Signatures: Dispatcher [employer] EDMS Homero Marcus PA PA cp Wadley, Terrence, MD MD tw4 Sharita Martinez RN RN vg1 Corrections: (The following items were deleted from the chart) 12/13 21:03 20:49 Lower Extremity Artery Uni Ltd+US.RAD.SORAYAZ ordered. EDMS EDMS
[2020-12-13 23:01] VITALS: TEMP 98.9
[2020-12-13 23:03] VITALS: BP 105/83; O2SAT 99
--- NOTE | 2020-12-14 12:35 | RAD REPORT ---
EXAM DESCRIPTION: RAD - Knee Right 3 View - 12/13/2020 10:46 pm CLINICAL HISTORY: PAIN COMPARISON: No comparisons FINDINGS: No fracture, dislocation or joint effusion is evident. No aggressive marrow lesion.
== END 2020-12-13 22:55 | disposition home or self-care (01) ==
LOC: ER 20:13
DX: M25.561 Pain in right knee (principal); Z88.5 Allergy status to narcotic agent; Z91.013 Allergy to seafood; Z91.040 Latex allergy status; Z91.048 Other nonmedicinal substance allergy status
CPT/HCPCS: 36415; 80048; 80076; 81003; 81025; 83690; 85025; 93971; 99284

== ENCOUNTER 2020-12-18 20:14 | Emergency (ER) | payer SELFPAY ==
[2020-12-18 21:30] LABS: Urine Blood 2+ (Negative); Urine Glucose Negative (Negative); Urine Protein Negative (Negative)
[2020-12-18 21:42] LABS: Absolute Lymphocytes (CBC) 2.3 K/uL (0.7-4.9); Basophils % 0.6 % (0-1.3); Hematocrit 38.4 % (36.0-45.0); Lymphocytes % 22.2 % (15.3-44.8); MPV 7.1 fL (7.6-11.3); RBC Red Blood Cell Count 4.38 M/uL (3.86-4.86)
[2020-12-18] MEDS ORDERED: LORazepam 2 MG/ML VIAL ONE (21:43)
[2020-12-18] MEDS ORDERED: KETOROLAC 30 MG/ML INJ ONE (21:43)
[2020-12-18 21:56] LABS: Potassium 3.6 mmol/L (3.5-5.1)
[2020-12-18 21:57] LABS: Barbiturates NEGATIVE (NEGATIVE); Benzodiazepines NEGATIVE (NEGATIVE); Cocaine NEGATIVE (NEGATIVE); METHAMPHETAM NEGATIVE (NEGATIVE); Methadone NEGATIVE (NEGATIVE); Opiates NEGATIVE (NEGATIVE); Phencyclidine NEGATIVE (NEGATIVE); THC Cannibis NEGATIVE (NEGATIVE)
--- NOTE | 2020-12-18 22:35 | ER ---
Nurse's Notes [facility] Name: Vanessa Da Silva Age: 40 yrs Sex: Female : 1980 Arrival Date: 12/18/2020 Time: 20:18 Bed 23 Private MD: Diagnosis: Pain in right arm Presentation: 12/18 20:25 Chief complaint: Patient states: right upper arm pain for a few days, denies trauma. em Coronavirus screen: Vaccine status: Patient reports receiving the 2nd dose of the covid vaccine. Ebola Screen: Patient negative for fever greater than or equal to 101.5 degrees Fahrenheit, and additional compatible Ebola Virus Disease symptoms Patient denies exposure to infectious person. Patient denies travel to an Ebola-affected area in the 21 days before illness onset. No symptoms or risks identified at this time. Initial Sepsis Screen: Does the patient meet any 2 criteria? No. Patient's initial sepsis screen is negative. Does the patient have a suspected source of infection? No. Patient's initial sepsis screen is negative. Risk Assessment: Do you want to hurt yourself or someone else? Patient reports no desire to harm self or others. Onset of symptoms was December 18, 2020. 20:25 Method Of Arrival: Ambulatory em 20:25 Acuity: DEV 4 em Triage Assessment: 21:52 General: Appears uncomfortable, well groomed, Behavior is crying. wr Historical: - Allergies: 20:27 Codeine; em 20:27 Demerol; em 20:27 Latex, Natural Rubber; em 20:27 Percocet; em 20:27 SHELLFISH; em - PMHx: 20:27 Asthma; palpitations; em - PSHx: 20:27 section; em - Immunization history:: Adult Immunizations up to date. - Social history:: Smoking status: Patient denies any tobacco usage or history of. Assessment: 22:45 Reassessment: Patient is alert, oriented x 3, equal unlabored respirations, skin bb warm/dry/pink. pt verbalized understanding of and agrees to plan of care discharge instructions given pt ambulated to exit with steady gait. Vital Signs: 20:25 BP 117 / 87; Pulse 88; Resp 18; Temp 97.7; Pulse Ox 100% on R/A; Weight 89.36 kg; em Height 5 ft. 1 in. (154.94 cm); Pain 5/10; 21:34 BP 125 / 89 RA Supine; Pulse 90; Resp 18; wr 21:34 BP 131 / 87 Sitting; Pulse 90; Resp 1; Temp 98.4; Pulse Ox 100% ; wr 21:34 BP 135 / 87 Standing; Pulse 90; Resp 20; wr 20:25 Body Mass Index 37.22 (89.36 kg, 154.94 cm) em ED Course: 20:18 Patient arrived in ED. cf2 20:27 Triage completed. em 20:27 Arm band placed on. em 20:36 Homero Marcus PA is PHCP. cp 20:36 Koffi Bowen MD is Attending Physician. cp 20:48 Rick Huntley is Primary Nurse. wr 21:25 Initial lab(s) drawn, by me, sent to lab. Inserted saline lock: 22 gauge in left vg1 antecubital area, using aseptic technique. Blood collected. 21:32 BMP Sent. tt3 21:32 CBC with Diff Sent. tt3 21:32 UDS Sent. tt3 22:31 UPPER EXTREMITY VENOUS UNILATE In Process Unspecified. EDMS Administered Medications: 21:30 Not Given (Patient Refused): Ketorolac 15 mg IVP once vg1 21:30 Not Given (Patient Refused): Ativan (LORazepam) 0.5 mg IVP once vg1 Outcome: 22:34 Discharge ordered by MD. cp 22:46 Discharged to home ambulatory. bb 22:46 Condition: stable 22:46 Discharge instructions given to patient, Instructed on discharge instructions, follow up and referral plans. medication usage, Demonstrated understanding of instructions, follow-up care, medications, Prescriptions given X 1. 22:47 Patient left the ED. bb Signatures: Dispatcher [employer] EDMS Robin Talavera, RN RN Kay Richardson RN RN bb Homero Marcus PA PA cp Dione Yates cf2 Sharita Martinez RN RN 1 Chemo Rees tt3 Rick Huntley wr Corrections: (The following items were deleted from the chart) 21:46 21:32 CORONAVIRUS+.MARIA ESTHER drawn and sent. tt3 EDMS
--- NOTE | 2020-12-18 22:35 | EDPHYS ---
Physician Documentation [facility] Name: Vanessa Da Silva Age: 40 yrs Sex: Female : 1980 Arrival Date: 12/18/2020 Time: 20:18 Bed 23 Private MD: ED Physician Koffi Bowen HPI: 12/18 21:15 This 40 yrs old Female presents to ER via Ambulatory with complaints of Arm cp Pain. 21:15 The patient or guardian complains of pain, that is acute. cp 21:15 The complaints affect the right arm. cp 21:15 Context: Patient reports increasing pain to right arm since having IV placed and cp removed at last ED visit on 12-13-2020. Patient denies injury, denies shortness of breath. 21:15 Treatment prior to arrival includes: over the counter medications, Tylenol. Associated cp signs and symptoms: Pertinent negatives: decreased range of motion, fever, numbness, warmth. Historical: - Allergies: 20:27 Codeine; em 20:27 Demerol; em 20:27 Latex, Natural Rubber; em 20:27 Percocet; em 20:27 SHELLFISH; em - PMHx: 20:27 Asthma; palpitations; em - PSHx: 20:27 section; em - Immunization history:: Adult Immunizations up to date. - Social history:: Smoking status: Patient denies any tobacco usage or history of. ROS: 21:20 MS/extremity: Positive for pain, tenderness, of the right arm. cp 21:20 Eyes: Negative for injury, pain, redness, and discharge. cp 21:20 Constitutional: Negative for body aches, chills, fever, poor PO intake. 21:20 Neck: Negative for pain with movement, pain at rest, stiffness. 21:20 Cardiovascular: Negative for palpitations. 21:20 Respiratory: Negative for cough, shortness of breath, wheezing. 21:20 Skin: Negative for cellulitis, rash. 21:20 Neuro: Negative for altered mental status, headache, syncope, weakness. 21:20 All other systems are negative. Exam: 21:25 Constitutional: The patient appears in no acute distress, alert, awake, cp non-diaphoretic, non-toxic, well developed, well nourished, anxious. 21:25 Head/Face: Normocephalic, atraumatic. cp 21:25 Eyes: Periorbital structures: appear normal, Conjunctiva: normal, no exudate, no injection, Sclera: no appreciated abnormality, Lids and lashes: appear normal, bilaterally. 21:25 ENT: External ear(s): are unremarkable, Nose: is normal, Mouth: Lips: moist, Oral mucosa: moist, Posterior pharynx: Airway: no evidence of obstruction, patent. 21:25 Neck: ROM/movement: is normal, is supple, without pain, no range of motions limitations. 21:25 Chest/axilla: Inspection: normal, Palpation: is normal, no crepitus, no tenderness. 21:25 Cardiovascular: Rate: normal, Rhythm: regular, Pulses: Pulses are 2+ in right radial artery and left radial artery. Heart sounds: murmur, not appreciated, Edema: is not appreciated. 21:25 Respiratory: the patient does not display signs of respiratory distress, Respirations: normal, no use of accessory muscles, no retractions, labored breathing, is not present, Breath sounds: are clear throughout, no decreased breath sounds, no stridor, no wheezing. 21:25 Musculoskeletal/extremity: Extremities: grossly normal except: noted in the right arm: cp pain, tenderness, There is no evidence of decreased ROM, deformity, erythema, swelling. 21:25 Skin: cellulitis, is not appreciated, no rash present. 21:25 Psych: Behavior/mood is anxious, Delusions/hallucinations are not present. 21:35 ECG was reviewed by the Attending Physician. cp Vital Signs: 20:25 BP 117 / 87; Pulse 88; Resp 18; Temp 97.7; Pulse Ox 100% on R/A; Weight 89.36 kg; em Height 5 ft. 1 in. (154.94 cm); Pain 5/10; 21:34 BP 125 / 89 RA Supine; Pulse 90; Resp 18; wr 21:34 BP 131 / 87 Sitting; Pulse 90; Resp 1; Temp 98.4; Pulse Ox 100% ; wr 21:34 BP 135 / 87 Standing; Pulse 90; Resp 20; wr 20:25 Body Mass Index 37.22 (89.36 kg, 154.94 cm) em MDM: 20:37 Patient medically screened. cp 22:00 Differential diagnosis: tendonitis, DVT, phlebitis, cellulitis, abscess. cp 22:33 Data reviewed: vital signs, nurses notes, lab test result(s), EKG, radiologic studies, cp ultrasound, and as a result, I will discharge patient. 22:33 Test interpretation: by ED physician or midlevel provider: ECG. cp 22:34 Counseling: I had a detailed discussion with the patient and/or guardian regarding: the cp historical points, exam findings, and any diagnostic results supporting the discharge/admit diagnosis, lab results, radiology results, to return to the emergency department if symptoms worsen or persist or if there are any questions or concerns that arise at home. 12/18 21:07 Order name: UDS; Complete Time: 22:08 12/18 21:07 Order name: BMP; Complete Time: 22:08 12/18 22:08 Interpretation: Normal except: CL 109; GFR 75. 12/18 21:07 Order name: CBC with Diff; Complete Time: 22:08 12/18 22:08 Interpretation: Normal except: MPV 7.1. 12/18 21:30 Order name: Urine Dipstick-Ancillary; Complete Time: 22:08 [facility] 12/18 22:09 Interpretation: Normal except: UBLD 2+; UESTR 1+. 12/18 21:33 Order name: Urine --Ancillary (enter results); Complete Time: 22:08 tt3 12/18 21:07 Order name: Urine Dipstick-Ancillary (obtain specimen); Complete Time: 21:29 12/18 21:07 Order name: Urine Test (obtain specimen); Complete Time: 21:29 12/18 21:07 Order name: EKG; Complete Time: 21:08 12/18 21:14 Order name: UPPER EXTREMITY VENOUS UNILATE [facility] 12/18 22:38 Order name: SARS-COV-2 RT PCR EDNC 12/18 21:07 Order name: Orthostatics; Complete Time: 21:32 12/18 21:07 Order name: EKG - Nurse/Tech; Complete Time: 21:30 cp EC:35 Rate is 76 beats/min. Rhythm is regular. MI interval is normal. QRS interval is normal. cp QT interval is normal. T waves are Inverted in lead aVR. Interpreted by me. Reviewed by me. Administered Medications: 21:30 Not Given (Patient Refused): Ketorolac 15 mg IVP once vg1 21:30 Not Given (Patient Refused): Ativan (LORazepam) 0.5 mg IVP once vg1 Disposition: 12/19 01:39 Co-signature as Attending Physician, Koffi Bowen MD. pkl Disposition Summary: 12/18/20 22:34 Discharge Ordered Location: Home cp Problem: new cp Symptoms: have improved cp Condition: Stable cp Diagnosis - Pain in right arm cp Followup: cp - With: Private Physician - When: 2 - 3 days - Reason: Worsening of condition Discharge Instructions: - Discharge Summary Sheet cp - Musculoskeletal Pain cp Forms: - Medication Reconciliation Form cp - Thank You Letter cp - Antibiotic Education cp - Prescription Opioid Use cp Prescriptions: - Prednisone 20 mg Oral Tablet - take 1 tablet by ORAL route once daily for 5 days; 5 tablet; Refills: 0, cp Product Selection Permitted Signatures: Dispatcher [employer] EDMS Koffi Bowen MD MD pkl Munoz, Edgar, RN RN Homero Lovell PA PA Sharita Vilchis RN vg1 Corrections: (The following items were deleted from the chart) 12/18 21:14 21:07 Extremity Venous Uni Ltd+US.RAD.BRZ ordered. EDMS EDMS 21:46 21:09 CORONAVIRUS+MR.LAB.BRZ ordered. EDMS EDMS
[2020-12-18 23:51] VITALS: O2SAT 100
[2020-12-18 23:53] VITALS: BP 135/87; TEMP 98.4
--- NOTE | 2020-12-19 07:30 | RAD REPORT ---
EXAM DESCRIPTION: US - UPPER EXTREMITY VENOUS UNILATE - 12/18/2020 10:31 pm CLINICAL HISTORY: Right arm pain and swelling Preliminary findings provided at the time of the study. COMPARISON: None. TECHNIQUE: Real-time sonographic evaluation of the right upper extremity deep venous systems was per formed. FINDINGS: Normal compressibility, flow augmentation, phasic flow and spontaneous flow are identified in the right upper extremity deep venous system. No intraluminal filling defects seen. Internal jugu lar and subclavian veins are normal as well. IMPRESSION: No DVT in the right upper extremity.
--- NOTE | 2020-12-19 08:13 | EKG ---
Test Date: 2020-12-18 Test Time: 21:27:26 Plant Sprayer: ALICIA MEASUREMENT RESULTS: Intervals: Rate: 76 MD: 146 QRSD: 76 QT: 358 QTc: 402 [place]: P: 28 MD: 146 QRS: 50 T: 52 INTERPRETIVE STATEMENTS: Normal sinus rhythm Normal ECG Compared to ECG 07/18/2020 17:57:10 No significant changes Electronically Signed On 12-19-20 08:12:54 CDT by Ildefonso Stewart
== END 2020-12-18 22:47 | disposition home or self-care (01) ==
LOC: ER 20:14
DX: M79.601 Pain in right arm (principal); Z88.5 Allergy status to narcotic agent; Z91.013 Allergy to seafood; Z91.040 Latex allergy status; Z20.822 Contact with and (suspected) exposure to COVID-19
CPT/HCPCS: 36415; 80048; 80307; 81003; 81025; 85025; 93005; 93971; 99284; U0003

== ENCOUNTER 2020-12-20 13:58 | Emergency (ER) | payer SELFPAY ==
[2020-12-20 14:46] LABS: Urine Blood Trace-intact (Negative); Urine Glucose Negative (Negative); Urine Protein Negative (Negative); Urine pH 6.5 (5.0-7.0)
[2020-12-20 15:00] LABS: Absolute Lymphocytes (CBC) 1.8 K/uL (0.7-4.9); Basophils % 0.4 % (0-1.3); Hematocrit 39.3 % (36.0-45.0); Lymphocytes % 21.6 % (15.3-44.8); RBC Red Blood Cell Count 4.53 M/uL (3.86-4.86)
[2020-12-20 15:26] LABS: ALT/SGPT 14 U/L (12-78); AST/SGOT 8 U/L (15-37); Albumin 3.8 g/dL (3.4-5.0); Alkaline Phosphatase 59 U/L (45-117); BUN Blood Urea Nitrogen 9 mg/dL (7-18); Bicarbonate 24 mmol/L (21-32); Bilirubin Direct < 0.1 mg/dL (0-0.2); Bilirubin Total 0.4 mg/dL (0.2-1.0); Glucose Level 90 mg/dL (74-106); Lipase 103 U/L (73-393); Potassium 3.7 mmol/L (3.5-5.1); Protein, Total 7.9 g/dL (6.4-8.2); Sodium Level 138 mmol/L (136-145)
--- NOTE | 2020-12-20 16:12 | RAD REPORT ---
EXAM DESCRIPTION: US - Abdomen Exam Limited - 12/20/2020 3:07 pm CLINICAL HISTORY: RUQ pain COMPARISON: Abdomen Pelvis Wo Contrast dated 01/22/2019 FINDINGS: No gallstones, sludge or other abnormalities within the gallbladder lumen. There is no wal l thickening or pericholecystic fluid. No common duct stone or biliary tree dilatation identified. IMPRESSION: Normal gallbladder and biliary tree ultrasound.
--- NOTE | 2020-12-20 17:21 | EDPHYS ---
Physician Documentation [facility] Name: Vanessa Da Silva Age: 40 yrs Sex: Female : 1980 Arrival Date: 12/20/2020 Time: 14:00 Bed 23 Private MD: ED Physician Rajat Ramsey HPI: 12/20 14:29 This 40 yrs old Female presents to ER via Ambulatory with complaints of pm1 Epigastric Pain. 14:29 The patient presents with abdominal pain in the right upper quadrant. Onset: The pm1 symptoms/episode began/occurred 3 week(s) ago. The symptoms do not radiate. Associated signs and symptoms: Pertinent positives: diarrhea, nausea, Pertinent negatives: chest pain, dysuria, fever, shortness of breath. The symptoms are described as crampy, Bloating. Modifying factors: The symptoms are alleviated by nothing, the symptoms are aggravated by food. Severity of pain: in the emergency department the pain is actually worse. The patient has not experienced similar symptoms in the past. The patient has been recently seen by a physician: the patient's primary care provider, earlier today, with similar presenting complaints, and was sent to the [facility] Emergency Department for further evaluation, Ultrasound of gallbladder. 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 - Social history:: Smoking status: Patient denies any tobacco usage or history of. ROS: 14:29 Constitutional: Negative for fever, chills, and weight loss, Cardiovascular: Negative pm1 for chest pain, palpitations, and edema, Respiratory: Negative for shortness of breath, cough, wheezing, and pleuritic chest pain. 14:29 : Negative for injury, bleeding, discharge, and swelling, MS/Extremity: Negative for injury and deformity, Skin: Negative for injury, rash, and discoloration. 14:29 Abdomen/GI: Positive for abdominal pain, nausea, diarrhea, constipation, Negative for vomiting. 14:29 All other systems are negative. Exam: 14:29 Constitutional: This is a well developed, well nourished patient who is awake, alert, pm1 and in no acute distress. Head/Face: Normocephalic, atraumatic. 14:29 Back: No spinal tenderness. No costovertebral tenderness. Full range of motion. Skin: Warm, dry with normal turgor. Normal color with no rashes, no lesions, and no evidence of cellulitis. MS/ Extremity: Pulses equal, no cyanosis. Neurovascular intact. Full, normal range of motion. 14:29 Eyes: Exam is negative for acute changes, Periorbital structures: appear normal, Extraocular movements: intact throughout, Sclera: no acute changes, icterus, is not appreciated. 14:29 ENT: Exam is negative for acute changes, Mouth: Lips: normal, moist, Oral mucosa: normal, pink and intact, moist. 14:29 Cardiovascular: Exam negative for acute changes, Rate: normal, Rhythm: regular, Pulses: no pulse deficits are appreciated. 14:29 Respiratory: Exam negative for acute changes, respiratory distress, shortness of breath. 14:29 Abdomen/GI: Inspection: obese Palpation: soft, in all quadrants, mild abdominal tenderness, in the right upper quadrant. 14:29 Neuro: Exam negative for acute changes, Orientation: is normal, Mentation: is normal, Motor: is normal, moves all fours. Vital Signs: 14:03 BP 107 / 75; Pulse 89; Resp 18 S; Temp 97.5(TE); Pulse Ox 100% on R/A; Weight 88 kg aa5 (R); Height 5 ft. 1 in. (154.94 cm) (R); 14:56 BP 102 / 87; Pulse 92; Resp 16; Pulse Ox 100% on R/A; kh1 14:03 Body Mass Index 36.66 (88.00 kg, 154.94 cm) aa5 MDM: 14:15 Patient medically screened. pm1 17:12 Refusal of service: The patient/guardian displays adequate decision making capability pm1 and despite a detailed discussion of alternatives, benefits, risks, and consequences refuses: CT Scan, Patient was satisfied with current set of labs and ultrasound of gallbladder. Recommended to the patient she get a CT scan of the abdomen since the ultrasound result was negative. Patient does not want to CT scan because "[she] is self-pay." Informed patient I would not be able to make a full diagnosis and treatment plan without a CT scan, but she still does not want the imaging. I instructed the patient to follow-up with GI for further evaluation and treatment and instructed and educated on return precautions. 17:16 Data reviewed: vital signs. Data interpreted: Pulse oximetry: on room air is 100 %. pm1 Interpretation: normal. 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 12/20 14:18 Order name: Basic Metabolic Panel; Complete Time: 15:35 pm1 12/20 14:18 Order name: CBC with Diff; Complete Time: 15:35 pm1 12/20 14:18 Order name: Hepatic Function; Complete Time: 15:35 pm1 12/20 14:18 Order name: Lipase; Complete Time: 15:35 pm1 12/20 14:18 Order name: US Abdomen Limited; Complete Time: 16:33 pm1 12/20 14:46 Order name: Urine Dipstick-Ancillary; Complete Time: 15:35 EDMS 12/20 14:18 Order name: IV Saline Lock; Complete Time: 14:46 pm1 12/20 14:18 Order name: Labs collected and sent; Complete Time: 14:46 pm1 12/20 14:18 Order name: Urine Dipstick-Ancillary (obtain specimen); Complete Time: 14:46 pm1 12/20 14:18 Order name: Urine Test (obtain specimen); Complete Time: 14:46 pm1 Administered Medications: No medications were administered Disposition Summary: 12/20/20 17:20 Discharge Ordered Location: Home pm1 Problem: new pm1 Symptoms: have improved pm1 Condition: Stable pm1 Diagnosis - Abdominal pain, unspecified pm1 Followup: pm1 - With: Emergency Department - When: As needed - Reason: Worsening of condition Followup: pm1 - With: Private Physician - When: 2 - 3 days - Reason: Recheck today's complaints, Continuance of care, Re-evaluation by your physician Discharge Instructions: - Discharge Summary Sheet pm1 - Abdominal Pain, Adult pm1 - Diarrhea, Adult pm1 - Nausea, Adult pm1 Forms: - Medication Reconciliation Form pm1 - Thank You Letter pm1 - Antibiotic Education pm1 - Prescription Opioid Use pm1 Prescriptions: - ondansetron 4 mg Oral tablet,disintegrating - place 1 tablet by TRANSLINGUAL route every 8 hours As needed; 20 tablet; pm1 Refills: 0, Product Selection Permitted - Pepcid 20 mg Oral Tablet - take 1 tablet by ORAL route every 12 hours for 10 days; 20 tablet; Refills: 0, pm1 Product Selection Permitted - dicyclomine 20 mg Oral Tablet - take 1 tablet by ORAL route every 6 hours As needed; 20 tablet; Refills: 0, pm1 Product Selection Permitted Addendum: 12/22/2020 10:04 Co-signature as Attending Physician, Rajat Ramsey MD I agree with the assessment and k dr plan of care. Signatures: Dispatcher [employer] Rajat Pinzon MD MD [facility] Ruth Camejo, RN RN aa5 Chaitanya Somers NP ELEVATOR SERVICE MECHANIC pm1
--- NOTE | 2020-12-20 17:21 | ER ---
Nurse's Notes [facility] Name: Vanessa Da Silva Age: 40 yrs Sex: Female : 1980 Arrival Date: 12/20/2020 Time: 14:00 Bed 23 Private MD: Diagnosis: Abdominal pain, unspecified Presentation: 12/20 14:03 Chief complaint: Patient states: RUQ pain with nausea/vomiting/diarrhea on and off "for aa5 weeks". Sent here by PCP to check her gallbladder. Coronavirus screen: At this time, the client does not indicate any symptoms associated with coronavirus-19. Ebola Screen: Patient negative for fever greater than or equal to 101.5 degrees Fahrenheit, and additional compatible Ebola Virus Disease symptoms. Initial Sepsis Screen: Does the patient meet any 2 criteria? No. Patient's initial sepsis screen is negative. Does the patient have a suspected source of infection? No. Patient's initial sepsis screen is negative. Risk Assessment: Do you want to hurt yourself or someone else? Patient reports no desire to harm self or others. Onset of symptoms was December 2020. 14:03 Method Of Arrival: Ambulatory aa5 14:03 Acuity: DEV 3 aa5 Triage Assessment: 14:55 General: Appears in no apparent distress. comfortable, Behavior is appropriate for age. kh1 Pain: Denies pain. GI: No deficits noted. Abdomen is non-distended, Reports lower abdominal pain, diarrhea, intolerance of food. 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 - Social history:: Smoking status: Patient denies any tobacco usage or history of. Screenin:57 Abuse screen: Denies threats or abuse. Nutritional screening: No deficits noted. kh1 Tuberculosis screening: No symptoms or risk factors identified. Fall Risk None identified. IV access (20 points). Assessment: 14:57 Reassessment: Patient appears in no apparent distress at this time. No changes from 1 previously documented assessment. Patient and/or family updated on plan of care and expected duration. Pain level reassessed. Patient is alert, oriented x 3, equal unlabored respirations, skin warm/dry/pink. Vital Signs: 14:03 BP 107 / 75; Pulse 89; Resp 18 S; Temp 97.5(TE); Pulse Ox 100% on R/A; Weight 88 kg aa5 (R); Height 5 ft. 1 in. (154.94 cm) (R); 14:56 BP 102 / 87; Pulse 92; Resp 16; Pulse Ox 100% on R/A; kh1 14:03 Body Mass Index 36.66 (88.00 kg, 154.94 cm) aa ED Course: 14:00 Patient arrived in ED. as 14:03 Arm band placed on. aa5 14:04 Triage completed. aa5 14:08 Chaitanya Somers NP is PHCP. pm1 14:08 Rajat Ramsey MD is Attending Physician. pm1 14:16 Kim Glover is Primary Nurse. kh1 14:46 Urine Dipstick-Ancillary Sent. kh1 14:46 Basic Metabolic Panel Sent. kh1 14:46 CBC with Diff Sent. kh1 14:46 Hepatic Function Sent. kh1 14:46 Lipase Sent. kh1 14:57 Inserted saline lock: 20 gauge in right hand, using aseptic technique. kh1 14:58 US Abdomen Limited In Process Unspecified. EDMS 17:53 Patient has correct armband on for positive identification. iw 17:53 No provider procedures requiring assistance completed. IV discontinued, intact, iw bleeding controlled, No redness/swelling at site. Pressure dressing applied. Administered Medications: No medications were administered Outcome: 17:20 Discharge ordered by . pm1 17:53 Discharged to home ambulatory. iw 17:53 Condition: good 17:53 Discharge instructions given to patient, Instructed on discharge instructions, follow up and referral plans. Demonstrated understanding of instructions, follow-up care, medications, Prescriptions given X 3. 17:53 Patient left the ED. iw Signatures: Dispatcher [employer] EDAnastasiia Méndez Irene, RN RN Ruth Camejo RN RN [facility] Chaitanya Somers NP STRAW HAT BRIM RAISER OPERATOR pm1 Kim Glover [facility]
[2020-12-20 19:18] VITALS: TEMP 97.5; O2SAT 100
[2020-12-20 19:19] VITALS: BP 102/87
== END 2020-12-20 17:53 | disposition home or self-care (01) ==
LOC: ER 13:58
DX: R10.11 Right upper quadrant pain (principal); Z88.5 Allergy status to narcotic agent; Z91.013 Allergy to seafood; Z91.040 Latex allergy status; Z91.048 Other nonmedicinal substance allergy status
CPT/HCPCS: 36415; 76705; 80048; 80076; 81003; 83690; 85025; 99284

== ENCOUNTER 2021-05-29 15:12 | Emergency (ER) | payer SELFPAY ==
--- OUTSIDE RECORDS SUMMARY | 2021-05-29 15:15 | XMS REPORT | Continuity of Care Document ---
:1980 Author Organization [facility] t Address [address] [place] [address] Care Team Providers Name Role Phone Ami Vaughn Primary Care Physician Enrico Gaston DO Attending Clinician Doctor Unassigned, Name Attending Clinician Unavailable Payers Payer Name Policy Type Policy Number Effective Date Expiration Date S ource MEDICAID [place] [id number] 2018 00:00:00 Advance Directives Directive Decision Effective Termination Comments Source Date Date Healthcare Agents on N/A Univ ersity FileNameRelationshipHealthcare [facility] Agent [facility] RelationshipCommunicationGrant [facility] Care [phone] (Mobile) Problems Condition Condition Condition Status Onset Resolution Last Treating Co mments Source Name Details Category Date Date Treatment Clinician Date High-risk High-risk Disease Active 2019- Uni vers 5-06 ity of in first in first 00:00: [place] trimester trimester 00 [facility] Previous Previous Disease Active 2019- Unive rs 5-06 ity of section section 00:00: [address] Multiparit Multiparit Disease Active 2019- U nivers y y 5-06 ity of 00:00: [address] Family Family Disease Active 2019-0 Univers history of history of 5-06 it y of spina spina 00:00: [place] bifida bifida 00 Medical Branch Obesity in Obesity in Disease Active 2019 U nivers 08-07 ity of 00:: [place] [facility] History of History of Disease Active U nivers anxiety anxiety 08-07 ity of 00:: [place] [facility] History of History of Disease Active U nivers asthma asthma 08-07 ity of 00:: [place] [facility] History of History of Disease Active U nivers depression depression 08-07 it y of 00:: [place] [facility] Sinus Sinus Problem Active [facility] problem problem [facility] Other Other Problem Active [facility] chronic chronic [facility] pain pain [facility] Kidney Kidney Problem [facility] stones stones [facility] GERD GERD Problem Active [facility] (gastroeso (gastroeso Evy kes - phageal phageal Memoria reflux reflux l disease) disease) Outpat i ent Clinics Diverticul Diverticul Problem Active [facility] itis itis [facility] Anxiety Anxiety Problem [facility] Low back Low back Problem Active [facility] pain [facility] Fibromyalg Fibromyalg Problem Active [facility] ia ia [facility] Depression Depression Problem [facility] Neck pain Neck pain Problem Active [facility] Oral Oral Problem Active [facility] contracept contracept Evy kes - freddie freddie Memoria prescribed prescribed l [facility] Multiple Multiple Problem Active [facility] t allergies allergies [facility] - [facility] Positive Positive Diagnosis Active [facility] urine urine [facility] - Zhao quin test test l [facility]ics Family Family Problem Active [facility] planning planning [facility] Seasonal Seasonal Problem Active [facility] t allergic allergic [facility] - rhinitis rhinitis [facility] a l [facility] Allergies, Adverse Reactions, Alerts Allergy Allergy Status Severity Reaction(s) Onset Inactive Treating Comm ents Source Name Type Date Date Clinician Codeine Propensi Active Anaphylaxis Throat Un chad ty to 08-07 swells ity of adverse 00:00: [place] reaction 00 Medical s Branch Oxycodon Propensi Active Anaphylaxis 2018- U nivers e-Acetam ty to 08-07 ity of inophen adverse 00:00: [place] reaction 00 Medical s Branch CODEINE DRUG Active Anaphylaxis 2018- Univ ers INGREDI 08-07 ity of 00:00: [place] 00 Medical Branch OXYCODON DRUG Active Anaphylaxis 2018- Uni vers E-ACETAM 08-07 ity of INOPHEN 00:00: [place] 00 [facility] Branch Garlic Adverse Active Info Not [facility] Reaction Available [facility] Mustard Adverse Active Info Not [facility] Reaction Available [facility] Onions Adverse Active Info Not [facility] Reaction Available [facility] Social History Social Habit Start Date Stop Date Quantity Comments Source History SDOH University o f Alcohol Std [place] Medical Drinks Branch History SDOH University o f Alcohol Binge [place] Medic al Branch History SDOH University o f Alcohol Frequency [facility] edical [place] Alcohol intake 2019-06-25 2019-06-25 Current drinker Unive rsity of 00:00:00 00:00:00 of alcohol [facility] (finding) [place] Alcohol Comment 2018-08-07 2018-08-07 once a month Univers ity of 00:00:00 00:00:00 [facility] [place] [facility] Tobacco use and 2018-08-07 2018-08-07 Never used Universit y of exposure 00:00:00 00:00:00 [facility] [place] [facility] Sex Ass[birth year] At [birth year] Universit y of 00:00:00 00:00:00 [facility] [place] [facility] Smoking Status Start Date Stop Date Source Former smoker 2018-08-07 00:00:00 2018-08-07 00:00:00 Universi ty of [facility] [place] [facility] Medications Ordered Filled Start Stop Current Ordering Indication Dosage Frequency Signature Comments Components Source Medication Medication Date Date Medication? Clinician (SIG) Name Name KETOCONAZOL 2019- Yes [id number] Take by Univers E ORAL 5-06 mouth. ity of 10:27: [address] KETOCONAZOL Yes [id number] Take by Univers E ORAL 5-06 mouth. ity of 10:27: [address] Seasonique Seasonique Yes Ira [address] 4[facility]19 [facility] - 00:[facility]: [facility] 00 l Outpati ent Clinics Metronidazo Metronidazo 2019- No Ira 1 CHI le le 07-21 Millender applicatio Estella es - 00:00: 00:00 n to Memoria 00 :00 affected l area [facility] Ketoconazol Ketoconazol 2018- No Ira 1 CHI e e 07-21 Millender applicatio Estella es - 00:00: 00:00 n to Memoria 00 :00 affected l area [facility] Vital Signs Vital Name Observation Time Observation Value Comments Source Systolic blood 2020-12-20 13:36:00 124 mm[Hg] Univer sity of pressure [facility] [place] [facility] Diastolic blood 2020-12-20 13:36:00 80 mm[Hg] Unive rsity [facility] Heart rate 2020-12-20 13:36:00 82 /min [facility] Body temperature 2020-12-20 13:36:00 36.67 [facility] Respiratory rate 2020-12-20 13:36:00 18 /min [facility] Body weight 2020-12-20 13:36:00 87.998 kg [facility] BMI 2020-12-20 13:36:00 36.66 kg/m2 [facility] Oxygen saturation in 2020-12-20 13:36:00 100 /min [facility] Arterial blood by [facility] Pulse oximetry Branch Procedures Procedure Date / Time Performed Performing Clinician Sour e CONSENT/REFUSAL FOR 2020-12-20 13:30:26 Doctor Unassigned, No Un [facility] DIAGNOSIS AND Name Medical Branch TREATMENT Encounters Start End Encounter Admission Attending Care Care Encounter Source Date/Time Date/Time Type Type Clinicians Facility Department ID 2021-02-02 Emergency [facility] [id number] Univers 23:36:00 ity of [facility] [place] [facility] 2020-12-20 2020-12-20 Emergency [facility] [id number] Univers 08:38:00 09:14:00 Ama Howard [id number] ity [facility] [id number] [facility] [id number] [facility] 084 Branch 2020-12-20 2020-12-20 Orders Doctor RODNEY [id number] Univers 00:00:00 00:00:00 Only Unassigned, CRISTOPHER [id number] ity of [place] [facility] [id number] Romero as [id number] [place] [id number] Branch 2018-07-27 2018-07-27 Outpatient Eve Cotton [id number] 08:20:00 08:20:00 [facility] Family Medicine Medicine Outpati ent Clinics Results This patient has no known results.
[2021-05-29 15:46] LABS: Urine Blood Negative (Negative); Urine Glucose Negative (Negative); Urine Protein Negative (Negative); Urine Specific Gravity 1.015 (1.005-1.030); Urine pH 6.5 (5.0-7.0)
[2021-05-29] MEDS ORDERED: KETOROLAC 30 MG/ML INJ ONE (15:56)
[2021-05-29 15:59] LABS: Absolute Lymphocytes (CBC) 2.3 K/uL (0.7-4.9); Hematocrit 38.1 % (36.0-45.0); Lymphocytes % 18.4 % (15.3-44.8); MPV 7.1 fL (7.6-11.3); RBC Red Blood Cell Count 4.37 M/uL (3.86-4.86)
[2021-05-29 16:05] LABS: Urine Bacteria >50 /HPF (<20); Urine RBC NONE SEEN /HPF (NONE SEEN)
[2021-05-29 16:10] LABS: Urine Specific Gravity/Preg 1.015 (1.005-1.030)
[2021-05-29 16:22] LABS: ALT/SGPT 16 U/L (12-78); Albumin 3.3 g/dL (3.4-5.0); Alkaline Phosphatase 59 U/L (45-117); BUN Blood Urea Nitrogen 12 mg/dL (7-18); Bicarbonate 26 mmol/L (21-32); Bilirubin Total 0.3 mg/dL (0.2-1.0); Glucose Level 86 mg/dL (74-106); Lipase 164 U/L (73-393); Protein, Total 7.3 g/dL (6.4-8.2); Sodium Level 138 mmol/L (136-145)
[2021-05-29 16:24] LABS: AST/SGOT 15 U/L (15-37); Bilirubin Direct < 0.1 mg/dL (0-0.2); Potassium 3.6 mmol/L (3.5-5.1)
--- NOTE | 2021-05-29 16:29 | RAD REPORT ---
EXAM DESCRIPTION: CTAbdomen Pelvis Wo Contrast - 05/29/2021 4:09 pm CLINICAL HISTORY: ABD PAIN COMPARISON: Abdomen Pelvis Wo Contrast dated 01/22/2019 TECHNIQUE: CT of the abdomen and pelvis was performed. All CT scans are performed using dose optimization technique as appropriate and may include automated exposure control or mA/KV adjustment according to patient size. FINDINGS: Lower chest: No acute abnormality. Liver: No acute abnormality or suspicious lesions. Biliary: No biliary ductal dilatation. Stomach: No significant focal abnormality. Duodenum: No significant focal abnormality. Pancreas: No significant abnormality. Spleen: No significant abnormality. Adrenal: No suspicious lesions. Kidney/ureter: No hydronephrosis. Nonobstructive bilateral nephrolithiasis. Retroperitoneum: No retroperitoneal adenopathy. Vascular: No aneurysm. Bowel: Diverticulosis without diverticulitis.. Normal appendix. Peritoneum: No ascites or free air. Small fat containing umbilical hernia. Bladder: Grossly unremarkable. Reproductive: Uterine fibroid. Bones: No acute fracture. Other: n/a IMPRESSION: No acute intra-abdominal or pelvic finding. Nonobstructive bilateral nephrolithiasis. No rmal appendix.
--- NOTE | 2021-05-29 18:05 | ER ---
Nurse's Notes [facility] Name: Vanessa Da Silva Age: 40 yrs Sex: Female : 1980 Arrival Date: 05/29/2021 Time: 15:13 Bed 15 Private MD: Diagnosis: UTI/ Urinary tract infection, site not specified Presentation: 05/29 15:15 Chief complaint: Patient states: "I am having pain on the right side of my stomach that ab2 started a month ago and is getting way worse. I picked up a case of water today and that set me over." Pt c/o nausea and constipation. Coronavirus screen: Vaccine status: Patient reports receiving the 2nd dose of the covid vaccine. Client denies travel out of the [place] in the last 14 days. At this time, the client does not indicate any symptoms associated with coronavirus-19. Ebola Screen: Patient negative for fever greater than or equal to 101.5 degrees Fahrenheit, and additional compatible Ebola Virus Disease symptoms Patient denies exposure to infectious person. Patient denies travel to an Ebola-affected area in the 21 days before illness onset. No symptoms or risks identified at this time. Initial Sepsis Screen: Does the patient meet any 2 criteria? No. Patient's initial sepsis screen is negative. Does the patient have a suspected source of infection? No. Patient's initial sepsis screen is negative. Risk Assessment: Do you want to hurt yourself or someone else? Patient reports no desire to harm self or others. Onset of symptoms is unknown. 15:15 Method Of Arrival: Ambulatory ab2 15:15 Acuity: DEV 3 ab2 Triage Assessment: 15:19 General: Appears in no apparent distress. uncomfortable, Behavior is calm, cooperative, ab2 appropriate for age. Pain: Complains of pain in right upper quadrant and right lower quadrant. 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 - Social history:: Smoking status: Patient denies any tobacco usage or history of. Screenin:54 Abuse screen: Denies threats or abuse. Denies injuries from another. Nutritional jg9 screening: No deficits noted. Tuberculosis screening: No symptoms or risk factors identified. Fall Risk None identified. Assessment: 15:30 General: Appears in no apparent distress. Behavior is calm, cooperative. Pain: jg9 Complains of pain in abdomen. Vital Signs: 15:15 BP 111 / 82; Pulse 95; Resp 18; Temp 98.1(TE); Pulse Ox 100% ; Weight 89.36 kg; Height ab2 5 ft. 1 in. (154.94 cm); Pain 6/10; 15:35 BP 122 / 81; Pulse 99; Resp 17 S; Pulse Ox 100% on R/A; jg9 16:00 BP 127 / 85; Pulse 86; Resp 17 S; Pulse Ox 100% on R/A; jg9 16:30 BP 105 / 87; Pulse 88; Resp 17 S; Pulse Ox 100% on R/A; jg9 17:55 BP 112 / 84; Pulse 84; Resp 14 S; Pulse Ox 100% on R/A; jg9 15:15 Body Mass Index 37.22 (89.36 kg, 154.94 cm) ab2 ED Course: 15:13 Patient arrived in ED. ds1 15:15 Inserted saline lock: 20 gauge in left antecubital area, using aseptic technique. Blood jg9 collected. 15:17 Fátima Granado FNP-C is [facility]. kb 15:17 Lucia Fernandez MD is Attending Physician. kb 15:18 Triage completed. ab2 15:19 Arm band placed on right wrist. ab2 15:53 Carmel Velásquez, SONIA is Primary Nurse. jg9 15:54 Patient has correct armband on for positive identification. Bed in low position. Call jg9 light in reach. 16:10 CT Abd/Pelvis - Without Contrast In Process Unspecified. EDMS 17:59 emergency medical technician basic. jg9 18:08 US Abdomen Limited In Process Unspecified. EDMS 18:28 No provider procedures requiring assistance completed. jg9 18:29 IV discontinued. jg9 Administered Medications: 16:02 Not Given (Patient Refused): Ketorolac 30 mg IVP once jg9 18:20 Drug: Macrobid (nitrofurantoin) 100 mg Route: PO; jg9 18:24 Follow up: Response: Medication administered at discharge. jg9 Point of Care Testing: Urine : 15:55 hCG Reading: Negative; Control Reading: Positive; jg9 Outcome: 18:04 Discharge ordered by MD. liriano 18:29 Discharged to home ambulatory. jg9 18:29 Condition: stable 18:29 Discharge instructions given to patient, Instructed on discharge instructions, follow up and referral plans. Demonstrated understanding of instructions, follow-up care, Prescriptions given X 1. 18:29 Patient left the ED. jg9 Signatures: Dispatcher [employer] EDFátima Khoury, ASBESTOS COVERER-C ASBESTOS COVERER-Candi Loya ds1 Carmel Velásquez RN RN jg9 Bobby Dobbs2 Corrections: (The following items were deleted from the chart) 16:02 15:55 Ketorolac 30 mg IVP in left antecubital jg9 jg9
--- NOTE | 2021-05-29 18:05 | EDPHYS ---
Physician Documentation [facility] Name: Vanessa Da Silva Age: 40 yrs Sex: Female : 1980 Arrival Date: 05/29/2021 Time: 15:13 Bed 15 Private MD: ED Physician Lucia Fernandez HPI: 05/29 15:34 This 40 yrs old Female presents to ER via Ambulatory with complaints of R Side Pain. kb 15:34 The patient presents with abdominal pain in the right upper quadrant. Onset: The kb symptoms/episode began/occurred 1 month(s) ago. The symptoms do not radiate. Associated signs and symptoms: Pertinent positives: constipation, Pertinent negatives: nausea, vomiting, and diarrhea. The symptoms are described as intermittent. Modifying factors: The symptoms are alleviated by nothing, the symptoms are aggravated by nothing. Severity of pain: At its worst the pain was moderate in the emergency department the pain is unchanged. The patient has not experienced similar symptoms in the past. The patient has not recently seen a physician. Pt reports RUQ pain that has been intermittent for a month. Today became constant after lifting a case of water. 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 - Social history:: Smoking status: Patient denies any tobacco usage or history of. ROS: 15:34 Constitutional: Negative for fever, chills, and weight loss. kb 15:34 Abdomen/GI: Positive for abdominal pain, constipation. 15:34 All other systems are negative. Exam: 15:34 Constitutional: This is a well developed, well nourished patient who is awake, alert, kb and in no acute distress. Head/Face: Normocephalic, atraumatic. ENT: Moist Mucous membranes Cardiovascular: Regular rate and rhythm with a normal S1 and S2. No gallops, murmurs, or rubs. No pulse deficits. Respiratory: Respirations even and unlabored. No increased work of breathing. Talking in full sentences Skin: Warm, dry with normal turgor. Normal color. MS/ Extremity: Pulses equal, no cyanosis. Neurovascular intact. Full, normal range of motion. Neuro: Awake and alert, GCS 15, oriented to person, place, time, and situation. Moves all extremities. Normal gait. Psych: Awake, alert, with orientation to person, place and time. Behavior, mood, and affect are within normal limits. 15:34 Abdomen/GI: Inspection: abdomen appears normal, Bowel sounds: normal, Palpation: soft, in all quadrants, mild abdominal tenderness, in the suprapubic area. Vital Signs: 15:15 BP 111 / 82; Pulse 95; Resp 18; Temp 98.1(TE); Pulse Ox 100% ; Weight 89.36 kg; Height ab2 5 ft. 1 in. (154.94 cm); Pain 6/10; 15:35 BP 122 / 81; Pulse 99; Resp 17 S; Pulse Ox 100% on R/A; jg9 16:00 BP 127 / 85; Pulse 86; Resp 17 S; Pulse Ox 100% on R/A; jg9 16:30 BP 105 / 87; Pulse 88; Resp 17 S; Pulse Ox 100% on R/A; jg9 17:55 BP 112 / 84; Pulse 84; Resp 14 S; Pulse Ox 100% on R/A; jg9 15:15 Body Mass Index 37.22 (89.36 kg, 154.94 cm) ab2 MDM: 15:28 Patient medically screened. kb 15:33 Data reviewed: vital signs, nurses notes. Data interpreted: Pulse oximetry: on room air kb is 100 %. Interpretation: normal. 18:04 Counseling: I had a detailed discussion with the patient and/or guardian regarding: the kb historical points, exam findings, and any diagnostic results supporting the discharge/admit diagnosis, lab results, radiology results, the need for outpatient follow up, a family practitioner, to return to the emergency department if symptoms worsen or persist or if there are any questions or concerns that arise at home. 05/29 15:23 Order name: Basic Metabolic Panel; Complete Time: 16:28 kb 05/29 15:23 Order name: CBC with Diff; Complete Time: 16:13 kb 05/29 15:23 Order name: Hepatic Function; Complete Time: 16:28 kb 05/29 15:23 Order name: Lipase; Complete Time: 16:28 kb 05/29 15:33 Order name: Urine Microscopic Only; Complete Time: 16:13 kb 05/29 15:46 Order name: Urine Dipstick-Ancillary; Complete Time: 15:57 EDMS 05/29 15:23 Order name: IV Saline Lock; Complete Time: 15:55 kb 05/29 15:23 Order name: Labs collected and sent; Complete Time: 15:55 kb 05/29 15:33 Order name: CT Abd/Pelvis - Without Contrast; Complete Time: 16:30 kb 05/29 16:00 Order name: Urine --Ancillary (enter results); Complete Time: 16:13 eb 05/29 16:06 Order name: Urine Culture EDNH 05/29 16:31 Order name: US Abdomen Limited kb 05/29 15:33 Order name: Urine Dipstick-Ancillary (obtain specimen); Complete Time: 15:55 kb 05/29 15:33 Order name: Urine Test (obtain specimen); Complete Time: 15:55 kb Administered Medications: 16:02 Not Given (Patient Refused): Ketorolac 30 mg IVP once jg9 18:20 Drug: Macrobid (nitrofurantoin) 100 mg Route: PO; jg9 18:24 Follow up: Response: Medication administered at discharge. jg9 Point of Care Testing: Urine : 15:55 hCG Reading: Negative; Control Reading: Positive; jg9 Disposition Summary: 05/29/21 18:04 Discharge Ordered Location: Home kb Condition: Stable kb Diagnosis - UTI/ Urinary tract infection, site not specified kb Followup: kb - With: Emergency Department - When: As needed - Reason: Worsening of condition Followup: kb - With: Private Physician - When: 2 - 3 days - Reason: Recheck today's complaints, Continuance of care, Re-evaluation by your physician Discharge Instructions: - Discharge Summary Sheet kb - Urinary Tract Infection, Adult, [id number] kb Forms: - Medication Reconciliation Form kb - Thank You Letter kb - Antibiotic Education kb - Prescription Opioid Use kb Prescriptions: - Macrobid 100 mg Oral Capsule - take 1 capsule by ORAL route every 12 hours for 10 days; 20 capsule; Refills: kb 0, Product Selection Permitted Signatures: Dispatcher [employer] Fátima Mayes, INTERVENTIONAL TECH-C INTERVENTIONAL TECH-aCrmel Johnson, RN RN jg9 Bobby Dobbs
[2021-05-29] MEDS ORDERED: NITROFURAN MACRO 100 MG CAP PO ONE (18:23)
--- NOTE | 2021-05-29 18:31 | RAD REPORT ---
EXAM DESCRIPTION: US - Abdomen Exam Limited - 05/29/2021 6:08 pm CLINICAL HISTORY: ABD PAIN COMPARISON: Abdomen Pelvis Wo Contrast dated 05/29/2021 FINDINGS: The gallbladder is decompressed. No stones are identified. No biliary ductal dilatation. N o gallbladder wall thickening. The common bile duct measures 3 millimeters . IMPRESSION: Negative for cholelithiasis or acute cholecystitis.
[2021-05-29 18:55] VITALS: TEMP 98.1; O2SAT 100
[2021-05-29 19:00] VITALS: BP 112/84
== END 2021-05-29 18:29 | disposition home or self-care (01) ==
LOC: ER 15:12
DX: N39.0 Urinary tract infection, site not specified (principal); Z88.5 Allergy status to narcotic agent; Z91.013 Allergy to seafood; Z91.040 Latex allergy status; Z91.048 Other nonmedicinal substance allergy status
CPT/HCPCS: 36415; 74176; 76705; 80048; 80076; 81003; 81015; 81025; 83690; 85025; 87086; 87088; 99284

== ENCOUNTER 2021-07-20 15:24 | Emergency (ER) | payer SELFPAY ==
[2021-07-20 16:14] LABS: Urine Blood Negative (Negative); Urine Glucose Negative (Negative); Urine Protein Negative (Negative); Urine Specific Gravity 1.025 (1.005-1.030)
[2021-07-20 16:29] LABS: Urine Bacteria <20 /HPF (<20); Urine Mucus 1+ /HPF (NONE SEEN); Urine RBC <5 /HPF (NONE SEEN)
[2021-07-20 16:30] LABS: Absolute Lymphocytes (CBC) 2.1 K/uL (0.7-4.9); Hematocrit 38.4 % (36.0-45.0); Lymphocytes % 19.4 % (15.3-44.8); MPV 6.9 fL (7.6-11.3); RBC Red Blood Cell Count 4.44 M/uL (3.86-4.86)
[2021-07-20] MEDS ORDERED: LIDOCAINE 4% PATCH ONE (16:37)
[2021-07-20] MEDS ORDERED: MORPHINE 4 MG/ML SYR ONE (16:37)
[2021-07-20] MEDS ORDERED: ONDANSETRON 4 MG/2 ML VIAL ONE (16:37)
[2021-07-20 16:46] LABS: Albumin 3.4 g/dL (3.4-5.0); Bilirubin Total 0.2 mg/dL (0.2-1.0); Potassium 3.9 mmol/L (3.5-5.1); Protein, Total 7.5 g/dL (6.4-8.2)
[2021-07-20 16:48] LABS: Urine Specific Gravity/Preg 1.025 (1.005-1.030)
--- NOTE | 2021-07-20 16:52 | RAD REPORT ---
EXAM DESCRIPTION: CT - Stone Protocol - 07/20/2021 4:37 pm CLINICAL HISTORY: Flank pain. Left flank pain COMPARISON: Abdomen Pelvis Wo Contrast dated 05/29/2021 TECHNIQUE: Axial images were obtained without oral or IV contrast. Lack of contrast limits solid org an and vascular assessment. The [id number] spans the entirety of the system partially obscuring uppermost abdomen and lung bases. Coronal reformatted images were obtained and reviewed. All CT scans are performed using dose optimization technique as appropriate and may include automated exposure control or mA/KV adjustment according to patient size. FINDINGS: The lower lung cabrera are clear. Imaged portions of the liver and spleen show no suspicious findings on non-contrast imaging. The panc reas and adrenal glands are normal. No pathologic lymphadenopathy in the abdomen or pelvis. Small caliceal stones are present bilaterally, largest in the superior pole measuring 7 mm. No hydron ephrosis. No bowel obstruction, free air, free fluid or abscess. Normal appendix noted.Sigmoid diverticulosis i s present without diverticulitis. No significant bony abnormality. IMPRESSION: Bilateral nephrolithiasis as detailed without hydronephrosis. Prominent sigmoid diverticulosis coli without diverticulitis.
--- NOTE | 2021-07-20 17:52 | ER ---
Nurse's Notes [facility] Name: Vanessa Da Silva Age: 40 yrs Sex: Female : 1980 Arrival Date: 07/20/2021 Time: 15:26 Bed 10 Private MD: Diagnosis: Low back pain Presentation: 07/20 16:03 Chief complaint: Patient states: Low back pain that radiates left hip, denies known ph injury, also reports burning pain to L buttock. Coronavirus screen: Vaccine status: Patient reports receiving the 1st dose of the Covid vaccine. Ebola Screen: No symptoms or risks identified at this time. Initial Sepsis Screen: Does the patient meet any 2 criteria? No. Patient's initial sepsis screen is negative. Does the patient have a suspected source of infection? No. Patient's initial sepsis screen is negative. Risk Assessment: Do you want to hurt yourself or someone else? Patient reports no desire to harm self or others. Onset of symptoms was July 20, 2021. 16:03 Method Of Arrival: Ambulatory 16:03 Acuity: DEV 4 ph Triage Assessment: 16:24 General: Appears uncomfortable, Behavior is calm, cooperative, appropriate for age. ll1 Pain: Complains of pain in left low back. Musculoskeletal: Circulation, motion, and sensation intact. Capillary refill < 3 seconds, Range of motion: intact in all extremities, Reports pain in back. SAFETY RISK LEAD: 19:01 LMP N/A - control method ll1 Historical: - Allergies: 16:05 Codeine; ph 16:05 Demerol; ph 16:05 Latex, Natural Rubber; ph 16:05 Percocet; ph 16:05 SHELLFISH; ph - PMHx: 16:05 Asthma; palpitations; Kidney stone; ph - PSHx: 16:05 section; ph - Immunization history:: Adult Immunizations unknown. - Social history:: Smoking status: Patient denies any tobacco usage or history of. Screenin:15 Abuse screen: Denies threats or abuse. Nutritional screening: No deficits noted. ll1 Tuberculosis screening: No symptoms or risk factors identified. Fall Risk IV access (20 points). Total Rey Fall Scale indicates No Risk (0-24 pts). Assessment: 17:22 Reassessment: No changes from previously documented assessment. Patient and/or family ll1 updated on plan of care and expected duration. Pain level reassessed. Patient is alert, oriented x 3, equal unlabored respirations, skin warm/dry/pink. 18:17 Reassessment: No changes from previously documented assessment. Patient and/or family ll1 updated on plan of care and expected duration. Pain level reassessed. Patient is alert, oriented x 3, equal unlabored respirations, skin warm/dry/pink. Patient states feeling better. Neuro: No deficits noted. Vital Signs: 16:03 BP 129 / 79; Pulse 88; Resp 18; Temp 98.4; Pulse Ox 100% on R/A; Weight 90.72 kg; ph Height 5 ft. 1 in. (154.94 cm); Pain 7/10; 16:03 Body Mass Index 37.79 (90.72 kg, 154.94 cm) ph ED Course: 15:26 Patient arrived in ED. mr 15:30 Chaitanay Somers, JAMES is PHCP. pm1 15:30 Antonio Moody DO is Attending Physician. pm1 16:04 Triage completed. ph 16:05 Arm band placed on Patient placed in an exam room. ph 16:13 Joel Harrison, RN is Primary Nurse. ll1 16:23 Inserted saline lock: 20 gauge in left antecubital area, using aseptic technique. Blood mb7 collected. 16:23 Urine --Ancillary (enter results) Sent. mb7 16:24 Bed in low position. Call light in reach. Side rails up X 1. Door closed. Noise mb7 minimized. Warm blanket given. 16:24 CBC with Diff Sent. mb7 16:24 CMP Sent. mb7 16:24 Lipase Sent. mb7 16:24 Urine Microscopic Only Sent. mb7 16:39 Stone Protocol In Process Unspecified. EDMS 18:17 No provider procedures requiring assistance completed. IV discontinued, intact, ll1 bleeding controlled, No redness/swelling at site. Pressure dressing applied. Administered Medications: 16:41 Not Given (Patient Refused): morphine 4 mg IVP once; RASS on ADMIN: Combtv4, Very ll1 Agttd3, Agttd2, Rstlss1, AlertClm0, Drwsy-1, Lt Sdtn-2, Mod Sdtn-3, Dp Sdtn-4, UnArsble-5 16:42 Not Given (Patient Refused): Zofran (Ondansetron) 4 mg IVP once; over 2 minutes 1 16:42 Not Given (Patient ): Lidoderm Patch 5 % (700 mg/patch) 1 patches Topical once; ll1 leave on for 12 hours; cover most painful area; may cut into smaller pieces Outcome: 17:51 Discharge ordered by MD. pm1 18:17 Patient left the ED. 1 18:17 Discharged to home ambulatory. ll1 18:17 Condition: stable 18:17 Discharge instructions given to patient, Instructed on discharge instructions, follow up and referral plans. no drinking with medication, no driving heavy equipment, medication usage, Demonstrated understanding of instructions, follow-up care, medications, Prescriptions given X 2. Signatures: Dispatcher [employer] Essence Torres Patricia, RN RN ph Marinas, Patrick, NP INSTRUMENT TECH pm1 Joel Harrison RN RN 1 Essence Olson mb7
--- NOTE | 2021-07-20 17:52 | EDPHYS ---
Physician Documentation [facility] Name: Vanessa Da Silva Age: 40 yrs Sex: Female : 1980 Arrival Date: 07/20/2021 Time: 15:26 Bed 10 Private MD: ED Physician Antonio Moody HPI: 07/20 15:58 This 40 yrs old Female presents to ER via Ambulatory with complaints of Back Pain. pm1 15:58 The patient presents with pain that is acute. The symptoms are located in the left low pm1 back. Onset: The symptoms/episode began/occurred 3 day(s) ago. The pain radiates to the left hip. Associated signs and symptoms: Pertinent negatives: abdominal pain, dysuria, fever, incontinence, weakness. The problem was sustained Patient suspects possibly sciatica. Patient with history of kidney stones and sciatica. Left flank pain with radiation to left hip onset 3 days ago. Patient went to her chiropractor for an adjustment today and after her adjustment her sciatic pain was resolved however 30 minutes after she reported sciatic pain again. Patient concerned possibly might be related to kidney stones because she has a history of them. Modifying factors: The patient symptoms are alleviated by remaining still, the patient symptoms are aggravated by movement. Severity of symptoms: in the emergency department the symptoms are actually worse. The patient has experienced similar episodes in the past, several times. Seen by her chiropractor prior to arrival. 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 - Social history:: Smoking status: Patient denies any tobacco usage or history of. ROS: 15:58 Constitutional: Negative for fever, chills, and weight loss, Cardiovascular: Negative pm1 for chest pain, palpitations, and edema, Respiratory: Negative for shortness of breath, cough, wheezing, and pleuritic chest pain, Abdomen/GI: Negative for abdominal pain, nausea, vomiting, diarrhea, and constipation. 15:58 : Negative for injury, bleeding, discharge, and swelling, MS/Extremity: Negative for injury and deformity, Skin: Negative for injury, rash, and discoloration, Neuro: Negative for headache, weakness, numbness, tingling, and seizure. 15:58 Back: Positive for pain with movement, flank pain, on the left. 15:58 All other systems are negative. Exam: 15:58 Constitutional: This is a well developed, well nourished patient who is awake, alert, pm1 and in no acute distress. Head/Face: Normocephalic, atraumatic. 15:58 Skin: Warm, dry with normal turgor. Normal color with no rashes, no lesions, and no evidence of cellulitis. MS/ Extremity: Pulses equal, no cyanosis. Neurovascular intact. Full, normal range of motion. 15:58 Cardiovascular: Exam negative for acute changes, Rate: normal, Rhythm: regular, Pulses: no pulse deficits are appreciated, Heart sounds: normal. 15:58 Respiratory: Exam negative for acute changes, respiratory distress, shortness of breath. 15:58 Abdomen/GI: Exam negative for acute changes, Inspection: abdomen appears normal, Palpation: abdomen is soft and non-tender, in all quadrants. 15:58 Back: muscle spasm, is appreciated in the left low back. 15:58 Neuro: Exam negative for acute changes, Orientation: is normal, Mentation: is normal, Motor: is normal, moves all fours, strength is 5/5 in all extremities, Sensation: no obvious gross deficits. Vital Signs: 16:03 BP 129 / 79; Pulse 88; Resp 18; Temp 98.4; Pulse Ox 100% on R/A; Weight 90.72 kg; ph Height 5 ft. 1 in. (154.94 cm); Pain 7/10; 16:03 Body Mass Index 37.79 (90.72 kg, 154.94 cm) ph MDM: 16:06 Patient medically screened. pm1 17:17 Data reviewed: vital signs. Data interpreted: Pulse oximetry: on room air is 100 %. pm1 Interpretation: normal. Counseling: I had a detailed discussion with the patient and/or guardian regarding: the historical points, exam findings, and any diagnostic results supporting the discharge/admit diagnosis, lab results, radiology results, the need for outpatient follow up, to return to the emergency department if symptoms worsen or persist or if there are any questions or concerns that arise at home. 07/20 15:57 Order name: CBC with Diff; Complete Time: 16:55 pm1 07/20 15:57 Order name: CMP; Complete Time: 16:55 pm1 07/20 15:57 Order name: Lipase; Complete Time: 16:55 pm1 07/20 15:57 Order name: Urine Microscopic Only; Complete Time: 16:55 pm1 07/20 16:14 Order name: Urine Dipstick-Ancillary; Complete Time: 16:30 EDMS 07/20 16:22 Order name: Urine --Ancillary (enter results); Complete Time: 16:55 bd 07/20 15:57 Order name: IV Saline Lock; Complete Time: 16:24 pm1 07/20 15:57 Order name: Labs collected and sent; Complete Time: 16:24 pm1 07/20 15:57 Order name: Urine Dipstick-Ancillary (obtain specimen); Complete Time: 16:14 pm1 07/20 15:57 Order name: Urine Test (obtain specimen); Complete Time: 16:14 pm1 07/20 15:58 Order name: Stone Protocol; Complete Time: 16:55 EDMS Administered Medications: 16:41 Not Given (Patient Refused): morphine 4 mg IVP once; RASS on ADMIN: Combtv4, Very ll1 Agttd3, Agttd2, Rstlss1, AlertClm0, Drwsy-1, Lt Sdtn-2, Mod Sdtn-3, Dp Sdtn-4, UnArsble-5 16:42 Not Given (Patient Refused): Zofran (Ondansetron) 4 mg IVP once; over 2 minutes ll1 16:42 Not Given (Patient ): Lidoderm Patch 5 % (700 mg/patch) 1 patches Topical once; ll1 leave on for 12 hours; cover most painful area; may cut into smaller pieces Disposition: 21:35 Co-signature as Attending Physician, Antonio YOU was immediately available on-site ms3 in the Emergency Department for consultation in the care of the patient.. Disposition Summary: 07/20/21 17:51 Discharge Ordered Location: Home pm1 Problem: new pm1 Symptoms: have improved pm1 Condition: Stable pm1 Diagnosis - Low back pain pm1 Followup: pm1 - With: Emergency Department - When: As needed - Reason: Worsening of condition Followup: pm1 - With: Private Physician - When: 2 - 3 days - Reason: Recheck today's complaints, Continuance of care, Re-evaluation by your physician Discharge Instructions: - Discharge Summary Sheet pm1 - Acute Back Pain, Adult pm1 - Sciatica pm1 - Back Injury Prevention, [id number] pm1 Forms: - Medication Reconciliation Form pm1 - Thank You Letter pm1 - Antibiotic Education pm1 - Prescription Opioid Use pm1 Prescriptions: - Lidoderm 5 % Topical adhesive patch,medicated - apply 1 patch by TRANSDERMAL route once daily As needed; 10 patch; Refills: 0, pm1 Product Selection Permitted - Cyclobenzaprine 10 mg Oral Tablet - take 1 tablet by ORAL route every 8 hours As needed; 30 tablet; Refills: 0, pm1 Product Selection Permitted Signatures: Dispatcher [employer] EDBarbara Malhotra RN RN Chaitanya Brady, JAMES BRICK AND BLOCKER AID LABOR pm1 Antonio Moody DO DO ms3 Joel Harrison RN ll1
[2021-07-20 22:27] VITALS: BP 129/79; TEMP 98.4; O2SAT 100
== END 2021-07-20 18:17 | disposition home or self-care (01) ==
LOC: ER 15:24
DX: M54.50 Low back pain, unspecified (principal); Z88.5 Allergy status to narcotic agent; Z91.013 Allergy to seafood; Z91.040 Latex allergy status; Z91.048 Other nonmedicinal substance allergy status
CPT/HCPCS: 36415; 74176; 76377; 80053; 81003; 81015; 81025; 83690; 85025; 99284; J2405

== ENCOUNTER 2021-07-21 02:59 | Emergency (ER) | payer SELFPAY ==
--- OUTSIDE RECORDS SUMMARY | 2021-07-21 03:02 | XMS REPORT | Continuity of Care Document ---
:1980 Author Organization [facility] t Address [address] [place] [address] Care Team Providers Name Role Phone Ami Vaughn Primary Care Physician Enrico Gaston DO Attending Clinician Doctor Unassigned, Name Attending Clinician Unavailable Payers Payer Name Policy Type Policy Number Effective Date Expiration Date S ource [place]ICAID [place] [id number] 2018 00:00:00 Advance Directives Directive Decision Effective Termination Comments Source Date Date Healthcare Agents on N/A Univ ersity FileNameRelationshipHealthcare [facility] Agent Medical RelationshipCommunicationRichland Center Care [phone] (Mobile) Problems Condition Condition Condition Status Onset Resolution Last Treating Co mments Source Name Details Category Date Date Treatment Clinician Date High-risk High-risk Disease Active 2019- Uni vers 5-06 ity of in first in first 00:00: [place] trimester trimester 00 [facility] Previous Previous Disease Active 2019-0 Unive rs 5-06 ity of section section 00:00: [address] Multiparit Multiparit Disease Active 2019- U nivers y y 5-06 ity of 00:00: [address] Family Family Disease Active 2019-0 Univers history of history of 5-06 it y of spina spina 00:00: [place] bifida bifida 00 Medical Branch Obesity in Obesity in Disease Active 2019 U nivers 08-07 ity of 00:: [place] [facility] History of History of Disease Active U nivers anxiety anxiety 08-07 ity of 00:: [place] [facility] History of History of Disease Active U nivers asthma asthma 08-07 ity of 00:: [place] [facility] History of History of Disease Active U nivers depression depression 08-07 it y of 00:: [place] [facility] Sinus Sinus Problem Active [facility] Other Other Problem Active [facility] chronic chronic [facility] Kidney Kidney Problem Active [facility] stones stones [facility] GERD GERD Problem Active [facility] (gastroeso (gastroeso Evy kes - phageal phageal Memoria reflux reflux l disease) disease) Outpat i ent Clinics Diverticul Diverticul Problem Active [facility] itis itis [facility] Anxiety Anxiety Problem [facility] Low back Low back Problem Active [facility] Fibromyalg Fibromyalg Problem Active [facility] ia ia [facility] Depression Depression Problem [facility] Neck pain Neck pain Problem Active [facility] Oral Oral Problem Active [facility] contracept contracept Evy kes - freddie freddie [facility] prescribed prescribed [facility] Multiple Multiple Problem Active [facility] allergies allergies [facility] Positive Positive Diagnosis Active [facility] urine urine [facility] Zhao quin test test l [facility]ics Family Family Problem Active [facility] planning planning [facility] Seasonal Seasonal Problem Active [facility] t allergic allergic [facility] rhinitis rhinitis [facility] a [facility] Allergies, Adverse Reactions, Alerts Allergy [...] 08-07 ity of INOPHEN 00:00: [place] 00 [facility] Branch Garlic Adverse Active Info Not CH[facility] [...] History SDOH University o f Alcohol Std [place] [facility] Drinks Branch History SDOH University o f Alcohol Binge [place] [facility] al Branch History SDOH University o f Alcohol Frequency [facility] edical [place] Alcohol intake 2019-06-25 2019-06-25 Current drinker Unive rsity of 00:00:00 00:00:00 of alcohol [facility] (finding) [place] Alcohol Comment 2018-08-07 2018-08-07 once a month Univers ity of 00:00:00 00:00:00 [facility] Tobacco use and 2018-08-07 2018-08-07 Never used Universit y of exposure 00:00:00 00:00:00 [facility] Sex [birth year] Universit y of 00:00:00 00:00:00 [facility] Smoking Status Start Date Stop Date Source Former smoker 2018-08-07 00:00:00 2018-08-07 00:00:00 Universi ty of [facility] Medications Ordered Filled Start Stop Current Ordering Indication Dosage Frequency Signature Comments Components Source Medication Medication Date Date Medication? Clinician (SIG) Name Name KETOCONAZOL 2019- Yes [id number] Take by Univers E ORAL 5-06 mouth. ity of 10:27: [address] KETOCONAZOL Yes [id number] Take by Univers E ORAL 5-06 mouth. ity of 10:27: [address] Seasonique Seasonique Yes Ira [address] 4-19 [facility] - 00:[facility]: Mem[facility] 00 l Outpati ent Clinics Metronidazo Metronidazo 2019- No Ira 1 [facility] le le 07-21 Millender applicatio Estella es - 00:00: 00:00 n to Memoria 00 :00 affected l area [facility] Ketoconazol Ketoconazol 2018- No Ira 1 CHI e e 07-21 Millender applicatio Estella es - 00:00: 00:00 n to Memoria 00 :00 affected [facility] area [facility] Vital Signs Vital Name Observation Time Observation Value Comments Source Systolic blood 2020-12-20 13:36:00 124 mm[Hg] Univer sity of pressure [facility] Diastolic blood 2020-12-20 13:36:00 80 mm[Hg] Unive rsity [facility] [place] [facility] Heart rate 2020-12-20 13:36:00 82 /min [facility] Body temperature 2020-12-20 13:36:00 36.67 Tanya [facility] Respiratory rate 2020-12-20 13:36:00 18 /min [facility] Body weight 2020-12-20 13:36:00 87.998 kg [facility] BMI 2020-12-20 13:36:00 36.66 kg/m2 [facility] Oxygen saturation in 2020-12-20 13:36:00 100 /min [facility] Arterial blood by [facility] Pulse oximetry Branch Procedures Procedure Date / Time Performed Performing Clinician Sour e CONSENT/REFUSAL FOR 2020-12-20 13:30:26 Doctor Unassigned, No Un [facility] DIAGNOSIS AND Name Medical Branch TREATMENT Encounters Start End Encounter Admission Attending Care Care Encounter Source Date/Time Date/Time Type Type Clinicians Facility Department ID 2021-02-02 Emergency [facility] [id number] Univers 23:36:00 ity of [facility] 2020-12-20 2020-12-20 Emergency [facility] [id number] Univers 08:38:00 09:14:00 Ama Howard [id number] ity [facility] [id number] [place] [id number] [facility] 084 Branch 2020-12-20 2020-12-20 Orders Doctor RODNEY [id number] Univers 00:00:00 00:00:00 Only Unassigned, CRISTOPHER [id number] ity of [place] [facility] [id number] Romero as [id number] [place] [address] Branch 2018-07-27 2018-07-27 Outpatient Eve Cotton [id number] 08:20:00 08:20:00 [facility] Family Medicine Medicine Outpati ent Clinics Results This patient has no known results.
[2021-07-21] MEDS ORDERED: methocarbamoL 500 MG TAB ONE (05:06)
[2021-07-21] MEDS ORDERED: MORPHINE 4 MG/ML SYR ONE (05:07)
[2021-07-21 06:53] LABS: Urine Blood Negative (Negative); Urine Glucose Negative (Negative); Urine Protein Negative (Negative); Urine pH 6.5 (5.0-7.0)
[2021-07-21 07:19] LABS: Urine Bacteria >50 /HPF (<20); Urine RBC NONE SEEN /HPF (NONE SEEN)
--- NOTE | 2021-07-21 07:24 | EDPHYS ---
Physician Documentation [facility] Name: Vanessa Da Silva Age: 40 yrs Sex: Female : 1980 Arrival Date: 07/21/2021 Time: 03:04 Bed 12 Private MD: ED Physician Rajat Ramsey HPI: 07/21 08:04 This 40 yrs old Female presents to ER via Ambulatory with complaints of Back Pain. kdr 08:04 The patient presents with pain that is acute. The symptoms are located in the low back, kdr Left hip and flank. Onset: The symptoms/episode began/occurred gradually, 1 week(s) ago. The pain does not radiate. Associated signs and symptoms: The patient has no apparent associated signs or symptoms. The problem was sustained without known cause, from unknown cause. Modifying factors: The patient symptoms are alleviated by nothing, the patient symptoms are aggravated by any movement. Severity of symptoms: At their worst the symptoms were mild. The patient has experienced similar episodes in the past, a few times. The patient has been recently seen at the [facility] Emergency Department, yesterday. Patient was seen here yesterday with the same complaint. The complaint was left hip and left flank pain. She was noted to have kidney stones on a CT stone protocol however there was no hydronephrosis or nor Kaplan ureter. Rest of the scan was unremarkable. She states that the pain that she had yesterday is continued into today. There is been little improvement. She denies any injury prior to the initial presentation nor any injury in the intervening period since when she was seen yesterday and now. She has not had this pain prior to this certainly to any extent similar to this. Nor can she attribute any specific action to her current pain situation. 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 - Social history:: Smoking status: Patient denies any tobacco usage or history of. Patient/guardian denies using alcohol. ROS: 08:04 Constitutional: Negative for fever, chills, and weight loss, Eyes: Negative for injury, kdr pain, redness, and discharge, Neck: Negative for injury, pain, and swelling, Cardiovascular: Negative for chest pain, palpitations, and edema, Respiratory: Negative for shortness of breath, cough, wheezing, and pleuritic chest pain, Abdomen/GI: Negative for abdominal pain, nausea, vomiting, diarrhea, and constipation, : Negative for injury, bleeding, discharge, and swelling, MS/Extremity: Negative for injury and deformity, Skin: Negative for injury, rash, and discoloration, Neuro: Negative for headache, weakness, numbness, tingling, and seizure activity. Psych: Negative for depression, anxiety, suicide ideation, homicidal ideation, and hallucinations, Allergy/Immunology: Negative for hives, rash, and allergies, Endocrine: Negative for neck swelling, polydipsia, polyuria, polyphagia, and marked weight changes, Hematologic/Lymphatic: Negative for swollen nodes, abnormal bleeding, and unusual bruising. 08:04 Back: Positive for injury or acute deformity, decreased range of motion, pain with movement, flank pain, Negative for radiated pain. Exam: 08:04 Constitutional: This is a well developed, well nourished patient who is awake, alert, kdr and in no acute distress. Head/Face: Normocephalic, atraumatic. Eyes: Pupils equal round and reactive to light, extra-ocular motions intact. Lids and lashes normal. Conjunctiva and sclera are non-icteric and not injected. Cornea within normal limits. Periorbital areas with no swelling, redness, or edema. Neck: Trachea midline, no thyromegaly or masses palpated, and no cervical lymphadenopathy. Supple, full range of motion without nuchal rigidity, or vertebral point tenderness. No Meningismus. Chest/axilla: Normal chest wall appearance and motion. Nontender with no deformity. No lesions are appreciated. Cardiovascular: Regular rate and rhythm with a normal S1 and S2. No gallops, murmurs, or rubs. Normal PMI, no JVD. No pulse deficits. Respiratory: Lungs have equal breath sounds bilaterally, clear to auscultation and percussion. No rales, rhonchi or wheezes noted. No increased work of breathing, no retractions or nasal flaring. Abdomen/GI: Soft, non-tender, with normal bowel sounds. No distension or tympany. No guarding or rebound. No evidence of tenderness throughout. Skin: Warm, dry with normal turgor. Normal color with no rashes, no lesions, and no evidence of cellulitis. MS/ Extremity: Pulses equal, no cyanosis. Neurovascular intact. Full, normal range of motion. Neuro: Awake and alert, GCS 15, oriented to person, place, time, and situation. Cranial nerves II-XII grossly intact. Motor strength 5/5 in all extremities. Sensory grossly intact. Cerebellar exam normal. Normal gait. Psych: Awake, alert, with orientation to person, place and time. Behavior, mood, and affect are within normal limits. 08:04 Back: normal spinal alignment noted, CVA tenderness, is absent, muscle spasm. Vital Signs: 03:12 BP 114 / 78; Pulse 91; Resp 17 S; Temp 98.1(O); Pulse Ox 100% on R/A; Weight 90.72 kg lg3 (R); Height 5 ft. 1 in. (154.94 cm) (R); Pain 10/10; 05:35 BP 122 / 84; Pulse 97; Resp 18 S; Pulse Ox 100% on R/A; lg3 03:12 Body Mass Index 37.79 (90.72 kg, 154.94 cm) lg3 MDM: 07:23 Patient medically screened. kdr 08:04 Data reviewed: vital signs, nurses notes, lab test result(s), radiologic studies. kdr Counseling: I had a detailed discussion with the patient and/or guardian regarding: the historical points, exam findings, and any diagnostic results supporting the discharge/admit diagnosis, lab results, radiology results, the need for outpatient follow up. 07/21 06:51 Order name: Urine Microscopic Only vc1 07/21 06:54 Order name: Urine Dipstick-Ancillary [facility] 07/21 06:55 Order name: Urine --Ancillary (enter results) mw2 07/21 07:22 Order name: Urine Culture [facility] 07/21 04:52 Order name: Urine Dipstick-Ancillary (obtain specimen); Complete Time: 06:53 kdr Administered Medications: 05:12 Not Given (change in dosagee): Robaxin (methocarbamol) 750 mg PO once; Two tabs PO x1 lg3 05:13 Drug: morphine 4 mg Route: IM; Site: right gluteus; lg3 05:13 Follow up: Response: No adverse reaction; RASS: Alert and Calm (0) lg3 05:13 Drug: Robaxin (methocarbamol) 1500 mg Route: PO; lg3 05:13 Follow up: Response: No adverse reaction lg3 07:50 Drug: [place] (HYDROcodone-acetaminophen) 10 mg-325 mg 1 tabs Route: PO; vg1 07:50 Follow up: Response: Medication administered at discharge. vg1 Disposition Summary: 07/21/21 07:23 Discharge Ordered Location: Home kdr Problem: an ongoing problem kdr Symptoms: have improved kdr Condition: Stable kdr Diagnosis - Left flank/hip pain kdr Followup: kdr - With: Private Physician - When: 2 - 3 days - Reason: If symptoms return, Further diagnostic work-up, Recheck today's complaints, Continuance of care, Re-evaluation by your physician Discharge Instructions: - Discharge Summary Sheet kdr - Musculoskeletal Pain kdr - Flank Pain, Adult, [id number] kdr Forms: - Medication Reconciliation Form kdr - Thank You Letter kdr - Antibiotic Education kdr - Prescription Opioid Use kdr Prescriptions: - Bactrim DS 800-160 mg Oral Tablet - take 1 tablet by ORAL route every 12 hours for 3 days; 6 tablet; Refills: 0, kdr Product Selection Permitted - Tramadol 50 mg Oral Tablet - take 1 tablet by ORAL route every 8 hours as needed; 12 tablet; Refills: 0, kdr Product Selection Permitted Signatures: Dispatcher [employer] Rajat Pinzon MD MD kdr Alice Bravo RN RN lg3 Sharita Martinez RN RN vg1
--- NOTE | 2021-07-21 07:24 | ER ---
Nurse's Notes [facility] Name: Vanessa Da Silva Age: 40 yrs Sex: Female : 1980 Arrival Date: 07/21/2021 Time: 03:04 Bed 12 Private MD: Diagnosis: Left flank/hip pain Presentation: 07/21 03:12 Chief complaint: Patient states: seen yesterday. discharged with lidocaine and lg3 Flexeril. pain is increasingly unbearable. left lower back pain radiating into the left lower abdomen and groin. Coronavirus screen: Client denies travel out of the [place] in the last 14 days. At this time, the client does not indicate any symptoms associated with coronavirus-19. Ebola Screen: No symptoms or risks identified at this time. Initial Sepsis Screen: Does the patient meet any 2 criteria? No. Patient's initial sepsis screen is negative. Does the patient have a suspected source of infection? No. Patient's initial sepsis screen is negative. Risk Assessment: Do you want to hurt yourself or someone else? Patient reports no desire to harm self or others. Onset of symptoms was July 18, 2021. 03:12 Method Of Arrival: Ambulatory lg3 03:12 Acuity: DEV 4 lg3 Triage Assessment: 03:27 General: Appears in no apparent distress. uncomfortable, Behavior is calm, cooperative, lg3 crying. Pain: Complains of pain in left low back Pain radiates to suprapubic area and left lower quadrant. EENT: No deficits noted. No signs and/or symptoms were reported regarding the EENT system. Neuro: No deficits noted. Level of Consciousness is awake, alert, obeys commands, Oriented to person, place, time, situation. Cardiovascular: No deficits noted. Denies chest pain, shortness of breath. Respiratory: No deficits noted. Airway is patent Trachea midline Respiratory effort is even, unlabored, Respiratory pattern is regular, symmetrical. GI: No deficits noted. No signs and/or symptoms were reported involving the gastrointestinal system. Abdomen is round non-distended. : No deficits noted. No signs and/or symptoms were reported regarding the genitourinary system. Derm: No deficits noted. No signs and/or symptoms reported regarding the dermatologic system. Skin is intact, is healthy with good turgor, Skin is dry, Skin is pink, warm \\T\\ dry. Musculoskeletal: Circulation, motion, and sensation intact. Capillary refill < 3 seconds, Range of motion: intact in all extremities. 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 - Social history:: Smoking status: Patient denies any tobacco usage or history of. Patient/guardian denies using alcohol. Screenin:30 Abuse screen: Denies threats or abuse. Denies injuries from another. Nutritional lg3 screening: No deficits noted. Tuberculosis screening: No symptoms or risk factors identified. Fall Risk None identified. Assessment: 03:48 General: see triage assessment . Neuro: No deficits noted. Level of Consciousness is lg3 awake, alert, obeys commands, Oriented to person, place, time, situation. 04:11 Reassessment: Patient appears in no apparent distress at this time. Patient and/or lg3 family updated on plan of care and expected duration. Pain level reassessed. Patient is alert, oriented x 3, equal unlabored respirations, skin warm/dry/pink. Pain: Pain currently is 10 out of 10 on a pain scale. Noted to be crying, resistant to movement. 05:35 Reassessment: Patient appears in no apparent distress at this time. No changes from lg3 previously documented assessment. Patient and/or family updated on plan of care and expected duration. Pain level reassessed. Patient is alert, oriented x 3, equal unlabored respirations, skin warm/dry/pink. 05:56 Reassessment: Patient appears in no apparent distress at this time. Patient and/or lg3 family updated on plan of care and expected duration. Pain level reassessed. states "the pain is still there but the medications have taken the edge off for the time being" Patient states symptoms have improved. 06:40 General: pt quietly resting at this time . lg3 Vital Signs: 03:12 BP 114 / 78; Pulse 91; Resp 17 S; Temp 98.1(O); Pulse Ox 100% on R/A; Weight 90.72 kg lg3 (R); Height 5 ft. 1 in. (154.94 cm) (R); Pain 10/10; 05:35 BP 122 / 84; Pulse 97; Resp 18 S; Pulse Ox 100% on R/A; lg3 03:12 Body Mass Index 37.79 (90.72 kg, 154.94 cm) lg3 ED Course: 03:04 Patient arrived in ED. kz 03:27 Triage completed. lg3 03:27 Arm band placed on left wrist. lg3 03:37 Rajat Ramsey MD is Attending Physician. kdr 03:48 Alice Bravo RN is Primary Nurse. lg3 04:13 Patient has correct armband on for positive identification. Bed in low position. Call lg3 light in reach. Side rails up X 1. Door closed. Noise minimized. 06:56 Urine --Ancillary (enter results) Sent. vc1 07:51 No provider procedures requiring assistance completed. Patient did not have IV access vg1 during this emergency room visit. Administered Medications: 05:12 Not Given (change in dosagee): Robaxin (methocarbamol) 750 mg PO once; Two tabs PO x1 lg3 05:13 Drug: morphine 4 mg Route: IM; Site: right gluteus; lg3 05:13 Follow up: Response: No adverse reaction; RASS: Alert and Calm (0) lg3 05:13 Drug: Robaxin (methocarbamol) 1500 mg Route: PO; lg3 05:13 Follow up: Response: No adverse reaction lg3 07:50 Drug: [place] (HYDROcodone-acetaminophen) 10 mg-325 mg 1 tabs Route: PO; vg1 07:50 Follow up: Response: Medication administered at discharge. vg1 Outcome: 07:23 Discharge ordered by . kdr 07:50 Discharged to home ambulatory, with family. vg1 07:50 Condition: good 07:50 Discharge instructions given to patient, Instructed on discharge instructions, follow up and referral plans. medication usage, Demonstrated understanding of instructions, follow-up care, medications, Prescriptions given X 2. 07:51 Patient left the ED. vg1 Signatures: Rajat Ramsey MD MD kdr Gibson, Lacie, RN RN lg3 Sharita Martinez RN RN vg1 Faina Khoury RN RN vc1 Kumar, Litzy young
[2021-07-21] MEDS ORDERED: HYDROCODONE/APAP 10/325 TAB ONE (07:48)
[2021-07-21 12:54] VITALS: TEMP 98.1; O2SAT 100
[2021-07-21 12:55] VITALS: BP 122/84
== END 2021-07-21 07:51 | disposition home or self-care (01) ==
LOC: ER 02:59
DX: R10.9 Unspecified abdominal pain (principal); M25.552 Pain in left hip; Z87.442 Personal history of urinary calculi; Z88.5 Allergy status to narcotic agent; Z91.013 Allergy to seafood; Z91.040 Latex allergy status; Z91.048 Other nonmedicinal substance allergy status
CPT/HCPCS: 81003; 81015; 81025; 87086; 87088; 96372; 99283

== ENCOUNTER 2022-01-29 15:58 | Emergency (ER) | payer SELFPAY ==
--- OUTSIDE RECORDS SUMMARY | 2022-01-29 16:01 | XMS REPORT | Continuity of Care Document ---
:1980 Author Organization [facility] t Address [address] [place] [address] Care Team Providers Name Role Phone Jose Vaughn Primary Care Physician [phone] Ama Gaston DO Attending Clinician Doctor Unassigned, [place] Attending Clinician Unavailable Payers Payer Name Policy Type Policy Number Effective Date Expiration Date S ource [place]ICA[place] [id number] 2018 00:00:00 Problems Condition Condition Condition Status Onset Resolution Last Treating Co mments Source Name Details Category Date Date Treatment Clinician Date High-risk High-risk Disease Active 2019-0 Uni vers 5-06 ity of in first in first 00:00: [place] trimester trimester 00 [facility] Previous Previous Disease Active 2019-0 Unive rs 5-06 ity of section section 00:00: [address] Multiparit Multiparit Disease Active 2019-0 U nivers y y 5-06 ity of 00:00: [place] 00 [facility] Family Family Disease Active 2019-0 Univers history of history of 5-06 it y of spina spina 00:00: [place] bifida bifida 00 [facility] Obesity in Obesity in Disease Active 2019-0 U nivers 5-06 ity of 00:00: [place] 00 [facility] Branch History of History of Disease Active 2019-0 U nivers anxiety anxiety 5-06 ity of 00:00: Medical [place] History of History of Disease Active 2019-0 U nivers asthma asthma 08-07 ity of 00:: Medical [place] History of History of Disease Active 2019-0 U nivers depression depression 08-07 it y of 00:: [place] [facility] [place] Sinus Sinus Problem Active Common problem problem [facility] Other Other Problem Active Common chronic chronic [facility] pain [facility] Kidney Kidney Problem Active Common stones stones [facility] GERD GERD Problem Active Common (gastroeso (gastroeso Sp ana phageal phageal [facility] reflux reflux St disease) disease) [facility] Diverticul Diverticul Problem Active C ommon itis itis [facility] Anxiety Anxiety Problem Active Common [facility] Low back Low back Problem Active Commo n pain pain [facility] Fibromyalg Fibromyalg Problem Active C ommon ia ia [facility] Depression Depression Problem Active C ommon [facility] Neck pain Neck pain Problem Active Com mon [facility] Oral Oral Problem Active Common contracept contracept Sp ana [facility]die [facility] - [facility] prescribed prescribed [facility] Multiple Multiple Problem Active Commo n allergies allergies Spir [facility] Positive Positive Diagnosis Active Com mon urine urine [facility] - [facility] I test test [facility] Family Family Problem Active Common planning planning [facility] Seasonal Seasonal Problem Active Commo n allergic allergic [facility] rhinitis rhinitis [facility] Allergies, Adverse Reactions, Alerts Allergy Allergy Status Severity Reaction(s) Onset Inactive Treating Comm ents Source Name Type Date Date Clinician Codeine Propensi Active Anaphylaxis 2019-0 Throat Un chad ty to 08-07 [place] ity of adverse 00:00: reaction [facility] Oxycodon Propensi Active Anaphylaxis 2019-0 U nivers e-Acetam ty to 08-07 ity of inophen adverse 00:00: [place] reaction [facility] CODEINE DRUG Active Anaphylaxis 2019-0 Univ ers INGREDI - ity of 00:00: [facility] OXYCODON DRUG Active Anaphylaxis 2019-0 Uni vers E-ACETAM -06 ity of INOPHEN 00:00: [address] Garlic Adverse Active Info Not Common Reaction Available [facility] Mustard Adverse Active Info Not Common Reaction Available [facility] Onions Adverse Active Info Not Common Reaction Available [facility] Social History Social Habit Start Date Stop Date Quantity Comments Source History SDOH University o f Alcohol Std [place] [facility] Drinks Branch History SDOH University o f Alcohol Binge [place] [facility] History SDOH University o f Alcohol Frequency [place] [facility] Alcohol intake 2019-06-25 2019-06-25 Current drinker Unive rsity of 00:00:00 00:00:00 of alcohol [place] [facility] (finding) Branch Alcohol Comment 2018-08-07 2018-08-07 once a month Univers ity of 00:00:00 00:00:00 [facility] Tobacco use and 2018-08-07 2018-08-07 Never used Universit y of exposure 00:00:00 00:00:00 [facility] Sex [birth year] Universit y of 00:00:00 00:00:00 [facility] Smoking Status Start Date Stop Date Source Former smoker 2018-08-07 00:00:00 2018-08-07 00:00:00 Universi ty [facility] Medications Ordered Filled Start Stop Current Ordering Indication Dosage Frequency Signature Comments Components Source Medication Medication Date Date Medication? Clinician (SIG) Name Name KETOCONAZOL Yes [id number] Take by Univers E ORAL 5-06 mouth. ity of 10:27: [address] KETOCONAZOL Yes [id number] Take by Univers E ORAL 5-06 mouth. ity of 10:27: [address] Seasonique Seasonique Yes Ira 1 tablet Common 4-19 [facility] Spirit 00:00: - [facility] 00 [facility] Metronidazo Metronidazo 2019- No Ira 1 Common le le -20 08-19 [place] applicatio Spi rit 00:00: 00:00 n to - [facility] 00 :00 affected [facility] Ketoconazol Ketoconazol 2019- No Ira 1 Common e e -19 -19 [place] applicatio Spi rit 00:00: 00:00 n to - [facility] 00 :00 affected [facility] Vital Signs Vital Name Observation Time Observation Value Comments Source Systolic blood 2020-12-20 13:36:00 124 mm[Hg] Univer sity of pressure [facility] Diastolic blood 2020-12-20 13:36:00 80 mm[Hg] Unive rsity of pressure [facility] Heart rate 2020-12-20 13:36:00 82 /min [facility] Body temperature 2020-12-20 13:36:00 36.67 Tanya [facility] Respiratory rate 2020-12-20 13:36:00 18 /min [facility] Body weight 2020-12-20 13:36:00 [facility]998 [facility] 2020-12-20 13:36:00 36.66 kg/m2 [facility] Oxygen saturation in 2020-12-20 13:36:00 100 /min [facility] Arterial blood by [facility] Pulse oximetry [place] Procedures Procedure Date / Time Performed Performing Clinician [facility] e CONSENT/REFUSAL FOR 2020-12-20 13:30:26 Doctor Unassigned, No Un [facility] DIAGNOSIS AND Name Medical Branch TREATMENT Encounters Start End Encounter Admission Attending Care Care Encounter Source Date/Time Date/Time Type Type Clinicians Facility Department ID 2021-02-02 Emergency [facility] [id number] Univers 23:36:00 ity of [facility] 2020-12-20 2020-12-20 [facility] [id number] Univers 08:38:00 09:14:00 Ama Howard [id number] ity of [place] [id number] [facility] [id number] [facility] 084 Branch 2020-12-20 2020-12-20 Orders Doctor STEVENS [id number] Univers 00:00:00 00:00:00 Only UnassignedCRISTOPHER [id number] ity of [place] [facility] [id number] [facility] [id number] [facility] 009 Branch 2018-07-27 2018-07-27 [id number] Common 08:20:00 08:20:00 t [facility] Results This patient has no known results.
--- NOTE | 2022-01-29 17:49 | ER ---
Nurse's Notes [facility] Name: Vanessa Da Silva Age: 41 yrs Sex: Female : 1980 Arrival Date: 01/29/2022 Time: 15:58 Bed 12 Private MD: Diagnosis: Dizziness;Vaginal Candidiasis Presentation: 01/29 16:43 Chief complaint: Patient states: Pt reports sudden onset of dizziness and left leg kb3 numbness with a headache and nausea that lasted approximately 2 minutes. Reports headache has resolved. Denies pain or dizziness at this time. Coronavirus screen: Vaccine status: Patient reports receiving the 2nd dose of the covid vaccine. Ebola Screen: No symptoms or risks identified at this time. Initial Sepsis Screen: Does the patient meet any 2 criteria? No. Patient's initial sepsis screen is negative. Does the patient have a suspected source of infection? No. Patient's initial sepsis screen is negative. Risk Assessment: Do you want to hurt yourself or someone else? Patient reports no desire to harm self or others. 16:43 Method Of Arrival: Ambulatory kb3 16:43 Acuity: DEV 3 kb3 16:43 Onset of symptoms was January 29, 2022 at 15:15. kb3 Triage Assessment: 16:46 Headache History: Denies prior headaches. General: Appears in no apparent distress. kb3 Behavior is calm, cooperative. Pain: Denies pain. Neuro: No deficits noted. 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 - Social history:: Smoking status: Patient denies any tobacco usage or history of. Vital Signs: 16:43 BP 115 / 83; Pulse 92; Resp 16; Temp 98.1; Pulse Ox 100% on R/A; Weight 89.36 kg; kb3 Height 5 ft. 1 in. (154.94 cm); Pain 0/10; 16:43 Body Mass Index 37.22 (89.36 kg, 154.94 cm) kb3 ED Course: 15:58 Patient arrived in ED. am2 16:00 Antonio Moody DO is Attending Physician. ms3 16:43 Arm band placed on left wrist. kb3 16:46 Triage completed. kb3 17:04 Arpita Patrick, RN is Primary Nurse. hb 17:48 Gamaliel Page DO is Referral Physician. ms3 Administered Medications: No medications were administered Outcome: 17:48 Discharge ordered by MD. ms3 18:03 Patient left the ED. hb Signatures: Arpita Patrick, RN RN Herlinda Marte am2 Antonio Moody DO DO ms3 Litzy Henderson RN RN kb3 Corrections: (The following items were deleted from the chart) 16:48 16:43 BP 115 / 83; Pulse 100bpm; Resp 16bpm; Pulse Ox 100% RA; Temp 98.1F; kb3 kb3 16:49 16:43 Chief complaint: Patient states: Pt reports sudden onset of dizziness and left kb3 leg numbness with a headache and nausea. Reports hedache has resolved. Denies pain or dizziness at this time kb3
--- NOTE | 2022-01-29 17:49 | EDPHYS ---
Physician Documentation [facility] Name: Vanessa Da Silva Age: 41 yrs Sex: Female : 1980 Arrival Date: 01/29/2022 Time: 15:58 Bed 12 Private MD: ED Physician Antonio Moody HPI: 01/29 16:49 This 41 yrs old Female presents to ER via Ambulatory with complaints of dizziness, "hot ms3 spots" on her head. 16:49 The patient complains of pain to the forehead and left side of the back of head. The ms3 patient describes the headache as "hot spots'. Onset: The symptoms/episode began/occurred just prior to arrival. Associated signs and symptoms: Pertinent positives: dizziness. Severity of symptoms: At its worst the pain was "no pain", in the emergency department the pain has resolved. The symptoms are alleviated by nothing. the symptoms are aggravated by nothing. 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 - Social history:: Smoking status: Patient denies any tobacco usage or history of. ROS: 16:49 Constitutional: Negative for fever, and chills. Neck: Negative for injury, pain, and ms3 swelling, Cardiovascular: Negative for chest pain, and palpitations. Respiratory: Negative for shortness of breath, cough, wheezing, and pleuritic chest pain, Abdomen/GI: Negative for abdominal pain, nausea, vomiting, diarrhea, and constipation, MS/Extremity: Negative for injury and deformity. 16:49 Neuro: Positive for dizziness. 16:49 All other systems are negative. Exam: 16:49 Constitutional: This is a well developed, well nourished patient who is awake, alert, ms3 and in no acute distress. Head/Face: Normocephalic, atraumatic. Eyes: Pupils equal round and reactive to light, extra-ocular motions intact. Lids and lashes normal. Conjunctiva and sclera are non-icteric and not injected. Periorbital areas with no swelling, redness, or edema. Neck: Trachea midline, no cervical lymphadenopathy. Supple, full range of motion without nuchal rigidity, or vertebral point tenderness. No Meningismus. Chest/axilla: Normal chest wall appearance and motion. Nontender with no deformity. Cardiovascular: Regular rate and rhythm with a normal S1 and S2. No gallops, murmurs, or rubs. Normal PMI, no JVD. No pulse deficits. Respiratory: Lungs have equal breath sounds bilaterally, clear to auscultation and percussion. No rales, rhonchi or wheezes noted. No increased work of breathing, no retractions or nasal flaring. Abdomen/GI: Soft, non-tender, with normal bowel sounds. No distension or tympany. No guarding or rebound. No evidence of tenderness throughout. Skin: Warm, dry with normal turgor. Normal color with no rashes, no lesions, and no evidence of cellulitis. MS/ Extremity: Pulses equal, no cyanosis. Neurovascular intact. Full, normal range of motion. 16:49 Neuro: Orientation: is normal, Mentation: is normal, Memory: is normal, Cranial nerves: CN II- XII are normal as tested, Cerebellar function: is grossly normal, normal finger to nose testing, Motor: is normal, Sensation: is normal, Gait: is steady, at a normal pace. 17:00 ECG was reviewed by the Attending Physician. ms3 Vital Signs: 16:43 BP 115 / 83; Pulse 92; Resp 16; Temp 98.1; Pulse Ox 100% on R/A; Weight 89.36 kg; kb3 Height 5 ft. 1 in. (154.94 cm); Pain 0/10; 16:43 Body Mass Index 37.22 (89.36 kg, 154.94 cm) kb3 MDM: 16:49 Data reviewed: vital signs, nurses notes. ms3 16:59 Patient medically screened. ms3 01/29 16:49 Order name: EKG; Complete Time: 16:50 ms3 01/29 16:49 Order name: EKG - Nurse/Tech; Complete Time: 17:04 ms3 EC:00 Rate is 73 beats/min. Rhythm is regular. QRS Rush is Normal. MI interval is normal. QRS ms3 interval is normal. QT interval is normal. Clinical impression: Normal ECG. Interpreted by me. Reviewed by me. Administered Medications: No medications were administered Disposition Summary: 01/29/22 17:48 Discharge Ordered Location: Home ms3 Condition: Stable ms3 Diagnosis - Dizziness ms3 - Vaginal Candidiasis ms3 Followup: ms3 - With: Gamaliel Page DO - When: 2 - 3 days - Reason: Recheck today's complaints Discharge Instructions: - Discharge Summary Sheet ms3 - Dizziness ms3 - Vaginal Yeast Infection, Adult ms3 Forms: - Medication Reconciliation Form ms3 - Thank You Letter ms3 - Antibiotic Education ms3 - Prescription Opioid Use ms3 Prescriptions: - Fluconazole 150 mg Oral Tablet - take 1 tablet by ORAL route one time May repeat dose if no improvement in ms3 symptoms in 72 hours; 2 tablet; Refills: 0, Product Selection Permitted Signatures: Antonio Moody DO DO ms3 Litzy Henderson, RN RN kb3
[2022-01-29 18:10] VITALS: BP 115/83; TEMP 98.1; O2SAT 100
--- NOTE | 2022-02-01 16:06 | EKG ---
Test Date: 2022-01-29 Test Time: 17:00:45 Environmental Manager: HB MEASUREMENT RESULTS: Intervals: Rate: 73 UT: 140 QRSD: 76 QT: 364 QTc: 401 [place]: P: 16 UT: 140 QRS: 27 T: 36 INTERPRETIVE STATEMENTS: Normal sinus rhythm Normal ECG Compared to ECG 12/18/2020 21:27:26 No significant changes Electronically Signed On 02-01-22 16:00:09 CDT by Mihir Moreno
== END 2022-01-29 18:03 | disposition home or self-care (01) ==
LOC: ER 15:58
DX: R42 Dizziness and giddiness (principal); B37.31 Acute candidiasis of vulva and vagina
CPT/HCPCS: 93005; 99281